=== PATIENT | female | born 1940 | race Caucasian/White ===

== ENCOUNTER 2016-10-06 14:26 | Inpatient (IN) | payer MEDICARE, MEDICAID ==
[~2016-10-06] VITALS: Ht 182.9 cm; Wt 87.1 kg
[2016-10-06] VITALS (18 sets, daily range): BP systolic 97–134; BP diastolic 55–79; PULSE 68–89; RESP 16–20; TEMP 97.8–99; O2SAT 94–100
[~2016-10-06 14:26] MED LIST: AMLO10; FAMO1TAB36; HYDR-2768; HYDR-3133; PROZ20CA11; VASO10TA8
[2016-10-06] MEDS: NITROGLYCERIN 0.4 MG SL 25 TABS/BTL SL SCH ×2 (14:44→15:06)
[2016-10-06] MEDS: SODIUM CHLORIDE 0.9% FLUSH 10 ML FLUSH IVF PRN ×2 (14:44→17:07)
[2016-10-06] MEDS ORDERED: LOSA100T PO (14:49)
[2016-10-06] MEDS ORDERED: OXYB5TAB10 PO (14:49)
[2016-10-06] MEDS ORDERED: [UNRECOGNIZED DRUG - CODE] PO (14:49)
[2016-10-06] MEDS ORDERED: HYDR25TA5 PO (14:49)
[2016-10-06] MEDS ORDERED: ZOCO40TA PO (14:49)
[2016-10-06] MEDS ORDERED: NIFE90TA2 PO (14:49)
--- NOTE | 2016-10-06 15:06 | PD ---
HPI Chief Complaint: Chest Pain Time Seen by Provider: 14:35 Travel History International Travel<30 days: No Contact w/Intl Traveler<30days: No Traveled to known affect area: No History of Present Illness HPI Patient is a 76-year-old female with history of hypertension, hyperlipidemia, COPD, valve disease who was brought to emergency room by EMS as a cardiac alert. As per patient, she was walking outside when all of a sudden she began to develop chest pain. She reports that chest pain is substernal in nature, reports it radiates to her back and up her bilateral shoulders. Reports "it feels like someone is sitting on my chest." Reports that she felt diaphoretic and sob with her symptoms. Patient reports history of cardiac disease - reports that she thinks that she has valve disease with hypertension and hyperlipidemia, reports that she sees Dr. Meng in the office. She was given a full dose of aspirin and well as 1 SL nitroglycerin by EMS - EMS reports that patient's blood pressure dropped to the 90's after the first SL nitro ordered. Patient reports that she continues to have chest pain though it has improved from when it first started. PFSH Past Medical History Hx Anticoagulant Therapy: Yes Arthritis: Yes Blood Disorders: No Anxiety: Yes (onprozac) Depression: Yes Cancer: No Cardiovascular Problems: Yes Endocrine: No GERD: Yes Genitourinary: No Hypertension: Yes Immune Disorder: No Musculoskeletal: Yes Neurologic: No Psychiatric: Yes Reproductive: No Respiratory: Yes ?: Not Menopausal: Yes Past Surgical History Abdominal Surgery: Yes (hysterectomy) Social History Alcohol Use: No Tobacco Use: No (quit 10 yrs ago) Substance Use: No Allergies-Medications (Allergen,Severity, Reaction): Coded Allergies: penicillin G (Unverified Allergy, Severe, RASH, 10/06/16) Reported Meds & Prescriptions Reported Meds & Active Scripts Active Reported Hydrochlorothiazide 25 Mg Tab 25 Mg PO DAILY Losartan (Losartan Potassium) 100 Mg Tab 100 Mg PO DAILY Nifedipine ER (Nifedipine) 90 Mg Tab 90 Mg PO DAILY Zocor (Simvastatin) 40 Mg Tab 40 Mg PO DAILY Paroxetine (Paroxetine HCl) 40 Mg Tab 40 Mg PO DAILY Ditropan (Oxybutynin Chloride) 5 Mg Tab 5 Mg PO Q12HR Review of Systems General / Constitutional: No: Fever Eyes: No: Visual changes HENT: No: Headaches Cardiovascular: Positive: Chest Pain or Discomfort, Diaphoresis Respiratory: Positive: Shortness of Breath Gastrointestinal: No: Abdominal Pain Genitourinary: No: Dysuria Musculoskeletal: No: Pain Skin: No Rash Neurologic: No: Weakness Psychiatric: No: Depression Endocrine: No: Polydipsia Hematologic/Lymphatic: No: Easy Bruising Physical Exam Narrative GENERAL: mild distress SKIN: Focused skin assessment warm/dry. HEAD: Atraumatic. Normocephalic. EYES: Pupils equal and round. No scleral icterus. No injection or drainage. ENT: No nasal bleeding or discharge. Mucous membranes pink and moist. NECK: Trachea midline. No JVD. CARDIOVASCULAR: Regular rate and rhythm. No murmur appreciated. RESPIRATORY: No accessory muscle use. Clear to auscultation. Breath sounds equal bilaterally. GASTROINTESTINAL: Abdomen soft, non-tender, nondistended. Hepatic and splenic margins not palpable. MUSCULOSKELETAL: No obvious deformities. No clubbing. No cyanosis. No edema. NEUROLOGICAL: Awake and alert. No obvious cranial nerve deficits. Motor grossly within normal limits. Normal speech. PSYCHIATRIC: Appropriate mood and affect; insight and judgment normal. Data Data Last Documented VS Vital Signs Date Time Temp Pulse Resp B/P Pulse Ox O2 Delivery O2 Flow Rate FiO2 10/06/16 16:19 97.8 81 18 125/71 100 Nasal Cannula 3 Orders B-Type Natriuretic Peptide (10/06/16 14:36) Ckmb (Isoenzyme) Profile (10/06/16 14:36) Complete Blood Count With Diff (10/06/16 14:36) Comprehensive Metabolic Panel (10/06/16 14:36) Magnesium (Mg) (10/06/16 14:36) Prothrombin Time / Inr (Pt) (10/06/16 14:36) Act Partial Throm Time (Ptt) (10/06/16 14:36) Troponin I (10/06/16 14:36) Lipase (10/06/16 14:36) Chest, Single Ap (10/06/16 14:36) Ecg Monitoring (10/06/16 14:36) Iv Access Insert/Monitor (10/06/16 14:36) Oximetry (10/06/16 14:36) Sodium Chloride 0.9% Flush (Ns Flush) (10/06/16 14:45) Nitroglycerin Sl (Nitrostat Sl) (10/06/16 14:45) Cta Thor Abd Aorta W Iv C W3d (10/06/16 ) CKMB (10/06/16 14:46) CKMB% (10/06/16 14:46) Potassium Chloride (Kcl) (10/06/16 15:45) Iohexol 350 Inj (Omnipaque 350 Inj) (10/06/16 15:53) Morphine Inj (Morphine Inj) (10/06/16 17:00) Admit Order (Ed Use Only) (10/06/16 16:49) Labs Laboratory Tests Test 10/06/16 14:46 White Blood Count 6.1 TH/MM3 Red Blood Count 4.20 MIL/MM3 Hemoglobin 12.8 GM/DL Hematocrit 36.9 % Mean Corpuscular Volume 88.0 FL Mean Corpuscular Hemoglobin 30.5 PG Mean Corpuscular Hemoglobin 34.6 % Concent Red Cell Distribution Width 13.6 % Platelet Count 191 TH/MM3 Mean Platelet Volume 8.7 FL Neutrophils (%) (Auto) 55.1 % Lymphocytes (%) (Auto) 26.2 % Monocytes (%) (Auto) 8.3 % Eosinophils (%) (Auto) 9.6 % Basophils (%) (Auto) 0.8 % Neutrophils # (Auto) 3.4 TH/MM3 Lymphocytes # (Auto) 1.6 TH/MM3 Monocytes # (Auto) 0.5 TH/MM3 Eosinophils # (Auto) 0.6 TH/MM3 Basophils # (Auto) 0.1 TH/MM3 CBC Comment DIFF FINAL Differential Comment Prothrombin Time 10.9 SEC Prothromb Time International 1.0 RATIO Ratio Activated Partial 25.9 SEC Thromboplast Time Sodium Level 138 MEQ/L Potassium Level 3.1 MEQ/L Chloride Level 100 MEQ/L Carbon Dioxide Level 29.4 MEQ/L Anion Gap 9 MEQ/L Blood Urea Nitrogen 27 MG/DL Creatinine 1.24 MG/DL Estimat Glomerular Filtration 42 ML/MIN Rate Random Glucose 87 MG/DL Calcium Level 9.0 MG/DL Magnesium Level 2.3 MG/DL Total Bilirubin 0.6 MG/DL Aspartate Amino Transf 31 U/L (AST/SGOT) Alanine Aminotransferase 31 U/L (ALT/SGPT) Alkaline Phosphatase 64 U/L Total Creatine Kinase 131 U/L Creatine Kinase MB 2.3 NG/ML Troponin I LESS THAN 0.02 NG/ML B-Type Natriuretic Peptide 47 PG/ML Total Protein 6.9 GM/DL Albumin 3.4 GM/DL Lipase 132 U/L MDM Medical Decision Making Medical Screen Exam Complete: Yes Emergency Medical Condition: Yes Interpretation(s) EKG at 1431: NSR at 92bpm, qt/qtc: 386/436, no acute st or t wave changes Vital Signs Date Time Temp Pulse Resp B/P Pulse Ox O2 Delivery O2 Flow Rate FiO2 10/06/16 14:31 97.8 84 18 117/78 94 Vital Signs Date Time Temp Pulse Resp B/P Pulse Ox O2 Delivery O2 Flow Rate FiO2 10/06/16 14:31 97.8 84 18 117/78 94 Differential Diagnosis Differential includes ACS, arrhythmia, aortic dissection, PE, electrolyte abnormality, pneumothorax Narrative Course Patient is a 76-year-old female who presents to emergency room with complaints of chest pain. She began to have substernal chest pain while walking today, reports that it felt as if someone was "sitting on my chest." patient reported mild improvement of symptoms with 3 SL nitro - pain went from an 8/10 to a 6/ 10. EKG with no acute changes patient was placed on a ekg monitor tech. will administer sl nitro. labs including ce ordered. will monitor patient Laboratory Tests Test 10/06/16 14:46 White Blood Count 6.1 TH/MM3 (4.0-11.0) Red Blood Count 4.20 MIL/MM3 (4.00-5.30) Hemoglobin 12.8 GM/DL (11.6-15.3) Hematocrit 36.9 % (35.0-46.0) Mean Corpuscular Volume 88.0 FL (80.0-100.0) Mean Corpuscular Hemoglobin 30.5 PG (27.0-34.0) Mean Corpuscular Hemoglobin 34.6 % Concent (32.0-36.0) Red Cell Distribution Width 13.6 % (11.6-17.2) Platelet Count 191 TH/MM3 (150-450) Mean Platelet Volume 8.7 FL (7.0-11.0) Neutrophils (%) (Auto) 55.1 % (16.0-70.0) Lymphocytes (%) (Auto) 26.2 % (9.0-44.0) Monocytes (%) (Auto) 8.3 % (0.0-8.0) Eosinophils (%) (Auto) 9.6 % (0.0-4.0) Basophils (%) (Auto) 0.8 % (0.0-2.0) Neutrophils # (Auto) 3.4 TH/MM3 (1.8-7.7) Lymphocytes # (Auto) 1.6 TH/MM3 (1.0-4.8) Monocytes # (Auto) 0.5 TH/MM3 (0-0.9) Eosinophils # (Auto) 0.6 TH/MM3 (0-0.4) Basophils # (Auto) 0.1 TH/MM3 (0-0.2) CBC Comment DIFF FINAL Differential Comment Prothrombin Time 10.9 SEC (9.8-11.6) Prothromb Time International 1.0 RATIO Ratio Activated Partial 25.9 SEC Thromboplast Time (24.3-30.1) Sodium Level 138 MEQ/L (136-145) Potassium Level 3.1 MEQ/L (3.5-5.1) Chloride Level 100 MEQ/L (98-107) Carbon Dioxide Level 29.4 MEQ/L (21.0-32.0) Anion Gap 9 MEQ/L (5-15) Blood Urea Nitrogen 27 MG/DL (7-18) Creatinine 1.24 MG/DL (0.50-1.00) Estimat Glomerular Filtration 42 ML/MIN (>89) Rate Random Glucose 87 MG/DL (74-106) Calcium Level 9.0 MG/DL (8.5-10.1) Magnesium Level 2.3 MG/DL (1.5-2.5) Total Bilirubin 0.6 MG/DL (0.2-1.0) Aspartate Amino Transf 31 U/L (15-37) (AST/SGOT) Alanine Aminotransferase 31 U/L (10-53) (ALT/SGPT) Alkaline Phosphatase 64 U/L (45-117) Total Creatine Kinase 131 U/L (26-192) Creatine Kinase MB 2.3 NG/ML (0.5-3.6) Troponin I LESS THAN 0.02 NG/ML (0.02-0.05) B-Type Natriuretic Peptide 47 PG/ML (0-100) Total Protein 6.9 GM/DL (6.4-8.2) Albumin 3.4 GM/DL (3.4-5.0) Lipase 132 U/L (73-393) Last Impressions Chest X-Ray 10/06/16 1436 Signed Impressions: Service Date/Time: September 15:19 - CONCLUSION: 1. Chronic interstitial changes. No acute abnormality. Michael Vieyra MD Aorta CTA 10/06/16 0000 Signed Impressions: Service Date/Time: September 15:51 - CONCLUSION: 1. 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 There is no evidence of rupture or dissection. 2. The pulmonary vasculature is well visualized centrally. No PE is seen. 3. Atherosclerotic plaquing the coronary arteries. 4. 2.4 x 1.3 cm groundglass nodule in the right upper lobe followup exam in 6 months to document stability is warranted. 5. Large hiatal hernia. 6. Multiple calcified gallstones in the gallbladder. 7. Multiple simple cysts within the kidneys. Michael Vieyra MD patient reports that she does have some relief of pain after sl nitro - she continues to have chest pain. I reviewed all labs and studies with patient in detail including all incidental findings. Patient is aware of her lung nodule. She does have atheroscleotic plaquing in the coronary arteries, concern for unstable angina. plan to start heparin gtt as well as nitro gtt. will admit to [facility] Critical Care Narrative Critical Care Narrative Aggregate critical care time was 30 minutes. Time to perform other separately billable procedures was not included in the critical care time. My time did not include minutes spent treating any other patients simultaneously or on activities that did not directly contribute to the patient's treatment. The services I provided to this patient were to treat and/or prevent clinically significant deterioration that could result in: , decompensation, deterioration I provided critical care services requiring my management, as noted below: Chart data review, documentation time, medication orders and management, vital sign assessments/reviewing monitor data, ordering and reviewing lab tests, ordering and interpreting/reviewing x-rays and diagnostic studies, care of the patient and discussion of the patient with the admitting physicians. Diagnosis Primary Impression: Unstable angina Admitting Information Admitting Physician Requests: Admit Yeimi Vigil DO Oct 06, 2016 15:06
[2016-10-06 15:07] LABS: AUTOMATED NEUTROPHIL # 3.4 TH/MM3 (1.8-7.7); BASOPHIL # 0.1 TH/MM3 (0-0.2); BASOPHIL % 0.8 % (0.0-2.0); EOSINOPHIL # 0.6 TH/MM3 (0-0.4); EOSINOPHIL % 9.6 % (0.0-4.0); HEMATOCRIT 36.9 % (35.0-46.0); HEMO FLAGS DIFF FINAL; LYMPH % 26.2 % (9.0-44.0); LYMPHOCYTE # 1.6 TH/MM3 (1.0-4.8); MEAN CORPUSCULAR HEMOGLOBIN 30.5 PG (27.0-34.0); MEAN CORPUSCULAR HGB CONC 34.6 % (32.0-36.0); MONO % 8.3 % (0.0-8.0); NEUT % 55.1 % (16.0-70.0); PLATELET COUNT 191 TH/MM3 (150-450); RED CELL DISTRIBUTION WIDTH 13.6 % (11.6-17.2); WHITE BLOOD COUNT 6.1 TH/MM3 (4.0-11.0)
[2016-10-06 15:34] LABS: ALT (GPT) 31 U/L (10-53); ANION GAP 9 MEQ/L (5-15); AST (GOT) 31 U/L (15-37); BICARBONATE 29.4 MEQ/L (21.0-32.0); BLOOD UREA NITROGEN 27 MG/DL (7-18); CHLORIDE 100 MEQ/L (98-107); GLOMERULAR FILTRATION RATE 42 ML/MIN (>89); MAGNESIUM 2.3 MG/DL (1.5-2.5); POTASSIUM 3.1 MEQ/L (3.5-5.1); SODIUM (NA) 138 MEQ/L (136-145)
[2016-10-06 15:38] LABS: ALKALINE PHOSPHATASE 64 U/L (45-117); CREATINE KINASE 131 U/L (26-192); TOTAL BILIRUBIN ADULT 0.6 MG/DL (0.2-1.0)
[2016-10-06 15:45] LABS: APTT (PATIENT) 25.9 SEC (24.3-30.1); PROTHROMBIN TIME - PATIENT 10.9 SEC (9.8-11.6)
[2016-10-06] MEDS ORDERED: POTASSIUM CHLORIDE 10 MEQ CONTROLLED RELEASE TAB PO ONE (15:45)
[2016-10-06 15:50] LABS: CKMB 2.3 NG/ML (0.5-3.6)
[2016-10-06] MEDS ORDERED: IOHEXOL 350 MG/ML 10 ML VIAL (for RAD DIAG) IV ONE (15:53)
--- NOTE | 2016-10-06 15:55 | RADRPT ---
EXAM DATE/TIME: 10/06/2016 15:19 [facility] COMPARISON: No previous studies available for comparison. INDICATIONS : Coughing, chest pain, shortness of breath for 2 days. MEDICAL HISTORY : Chronic obstructive pulmonary disease. SURGICAL HISTORY : None. ENCOUNTER: Initial ACUITY: 2 days PAIN SCORE: 5/10 LOCATION: Left lower chest FINDINGS: The heart is mildly enlarged. There are chronic interstitial changes. The lungs are otherwise clear. The osseous structures demonstrate degenerative changes but are otherwise intact. CONCLUSION: 1. Chronic interstitial changes. No acute abnormality. Michael Vieyra MD on October 06, 2016 at 15:52 Board Certified Radiologist. This report was verified electronically.
[2016-10-06] MEDS ORDERED: MORPHINE SULFATE 4 MG/ML INJ IV PUSH ONE (17:00)
--- NOTE | 2016-10-06 17:15 | RADRPT ---
EXAM DATE/TIME: 10/06/2016 15:51 [facility] COMPARISON: No previous studies available for comparison. INDICATIONS : Chest pain. IV CONTRAST: 90 cc Omnipaque 350 (iohexol) IV RADIATION DOSE: 17.00 CTDIvol (mGy) MEDICAL HISTORY : Cardiovascular disease. SURGICAL HISTORY : Hysterectomy. ENCOUNTER: Initial ACUITY: 1 day PAIN SCALE: 5/10 LOCATION: chest TECHNIQUE: Volumetric scanning was performed using a multi-row detector CT scanner. The data was post processed with a variety of visualization algorithms including full volume maximum intensity projection, multi -planar sliding thin slab reformation, curved planar reformation, and surface rendering techniques. Using automated exposure control and adjustment of the mA and/or kV according to patient size, radiat ion dose was kept as low as reasonably achievable to obtain optimal diagnostic quality images. DICOM format image data is available electronically for review and comparison. FINDINGS: Thoracic aorta: The aortic root is mildly dilated. Maximum dimension is approximately 3.4 cm. The tubular portion of the ascending aorta measures 3.9 cm. There is mild aneurysmal dilation of the proximal arch with a ma ximum dimension of 3.6 cm. The arch returns to normal caliber in its mid segment. There is normal bra nching of the great vessels from the arch. The descending thoracic aorta is normal in caliber through out its course. There is no evidence of dissection. Abdominal aorta: The celiac and SMA origins are widely patent. The renal arteries are widely patent. The abdominal aor ta is normal in caliber throughout its course. There is mild atherosclerotic plaquing. Pelvic vasculature: The common iliac, internal iliac and external iliac circulation demonstrates mild atherosclerotic raimundo quing but is widely patent throughout its course. CT source data: The examination demonstrates an ill-defined area of groundglass infiltrate in the posterior right upp er lobe measuring 2.4 x 1.[address] examination in 6 months to document stability is warrante d. There are COPD changes. There is a large hiatal hernia. The solid organs of the abdomen demonstrat e multiple simple cysts within the kidneys. There are numerous calcified gallstones in the gallbladde r. There is no retroperitoneal adenopathy. No free air or free fluid is seen. There is no free fluid within the pelvis. No iliac or inguinal adenopathy is present. There are degenerative changes through out the spine. CONCLUSION: 1. 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 There is no eviden ce of rupture or dissection. 2. The pulmonary vasculature is well visualized centrally. No PE is seen. 3. Atherosclerotic plaquing the coronary arteries. 4. 2.4 x 1.3 cm groundglass nodule in the right upper lobe followup exam in 6 months to document stab ility is warranted. 5. Large hiatal hernia. 6. Multiple calcified gallstones in the gallbladder. 7. Multiple simple cysts within the kidneys. Michael Vieyra MD on October 06, 2016 at 17:09 Board Certified Radiologist. This report was verified electronically.
[2016-10-06] MEDS ORDERED: NITROGLYCERIN-D5W 50 MG/250 ML 250 ML IV SCH (17:30)
[2016-10-06] MEDS ORDERED: HEPARIN-D5W 25,000 U/250 ML 250 ML IV SCH (17:30)
[2016-10-06] MEDS ORDERED: SODIUM CHLOR 0.45% 1000 ML INJ 1,000 ML IV SCH (17:39)
[2016-10-06] MEDS: SODIUM CHLOR 0.9% 1000 ML INJ 1,000 ML IV SCH (19:10)
--- NOTE | 2016-10-06 19:13 | HHI.HP ---
[facility] Regan Garsia DO Admission Diagnosis Chest pain Diagnoses: (1) Chest pain Diagnosis: Principal (2) Unstable angina Diagnosis: Principal (3) Renal insufficiency Diagnosis: Principal (4) Hypokalemia Diagnosis: Principal (5) COPD (chronic obstructive pulmonary disease) Diagnosis: Principal (6) Lung nodule Diagnosis: Principal Travel History International Travel<30 Days: No Contact w/Intl Traveler <30 Da: No Traveled to Known Affected Are: No History of Present Illness This is a 76-year-old female with a PMH of HTN, Hyperlipidemia, Anxiety, Depression, CAD and COPD was brought to the ER by EMS as a Cardiac Alert secondary to complaints of chest pain. Per patient, she had acute onset of substernal chest pain which started while walking. Reports pressure-like sensation with radiation to back and shoulders denies history of similar symptoms in the past. No fever, cough or SOB reported. S/p NTG by EMS w/ some improvement. Follows with Dr. Meng as outpatient. On arrival, BP 117/78 , HR 84, O2 sat 94% on 3L NC, Temp 99.0. CBC unremarkable. K+ 3.1. Creatinine 1.24, previously 0.93 on 12/05/06. Troponin negative. BNP normal. INR 1.0. CXR with chronic interstitial changes. CTA with mild aneurysmal dilatation of aortic root, ascending aorta and proximal arch no rupture or dissection, no PE, lung nodule RUL with recommendation for follow-up in 6 months. Cardiology consulted by ER physician, recommended admission w/ Heparin gtt and likely cath in am. Review of Systems Except as stated in HPI: all other systems reviewed are Neg ROS: 14 point review of systems otherwise negative. Past Family Social History Past Medical History PMH: HTN, Hyperlipidemia, Anxiety, Depression, CAD and COPD Past Surgical History PAST SURGICAL HISTORY: Hysterectomy Allergies: Coded Allergies: penicillin G (Unverified Allergy, Severe, RASH, 10/06/16) Family History PAST FAMILY HISTORY: Reviewed. No h/o DM or CAD Social History PAST SOCIAL HISTORY: Negative for alcohol, tobacco or drugs. Physical Exam Vital Signs Vital Signs Date Time Temp Pulse Resp B/P Pulse Ox O2 Delivery O2 Flow Rate FiO2 10/06/16 18:15 79 18 102/65 99 Nasal Cannula 3 10/06/16 18:11 97.8 76 18 134/79 99 Nasal Cannula 3 10/06/16 18:10 98.0 89 18 100/64 99 Nasal Cannula 3 10/06/16 18:05 97.8 74 18 119/67 99 Room Air 10/06/16 17:56 81 18 113/76 100 Nasal Cannula 3 10/06/16 17:50 18 10/06/16 17:40 98.1 78 18 115/74 99 Nasal Cannula 3 10/06/16 17:12 18 10/06/16 17:07 98.2 82 18 125/71 100 Nasal Cannula 3 10/06/16 16:19 97.8 81 18 125/71 100 Nasal Cannula 3 10/06/16 15:11 16 10/06/16 15:06 89 20 129/65 98 Nasal Cannula 3 10/06/16 14:35 18 99 Nasal Cannula 3 10/06/16 14:31 99.0 84 20 117/78 94 10/06/16 14:31 86 20 98 Nasal Cannula 3 Physical Exam PE: GENERAL: Elderly white female in no acute distress. HEENT: PERRLA, EOMI. No scleral icterus or conjunctival pallor. No lid lag or facial droop. CARDIOVASCULAR: Regular rate and rhythm. No obvious murmurs to auscultation. No chest tenderness to palpation. RESPIRATORY: No obvious rhonchi or wheezing. Clear to auscultation. Breath sounds equal bilaterally. GASTROINTESTINAL: Abdomen soft, non-tender, nondistended. BS normal. MUSCULOSKELETAL: Extremities without clubbing, cyanosis, or edema. No obvious deformities. NEUROLOGICAL: Awake, alert and oriented x4. No focal neurologic deficits. Moving both upper and lower extremities spontaneously. Laboratory Laboratory Tests Test 10/06/16 14:46 White Blood Count 6.1 Red Blood Count 4.20 Hemoglobin 12.8 Hematocrit 36.9 Mean Corpuscular Volume 88.0 Mean Corpuscular Hemoglobin 30.5 Mean Corpuscular Hemoglobin 34.6 Concent Red Cell Distribution Width 13.6 Platelet Count 191 Mean Platelet Volume 8.7 Neutrophils (%) (Auto) 55.1 Lymphocytes (%) (Auto) 26.2 Monocytes (%) (Auto) 8.3 Eosinophils (%) (Auto) 9.6 Basophils (%) (Auto) 0.8 Neutrophils # (Auto) 3.4 Lymphocytes # (Auto) 1.6 Monocytes # (Auto) 0.5 Eosinophils # (Auto) 0.6 Basophils # (Auto) 0.1 CBC Comment DIFF FINAL Differential Comment Prothrombin Time 10.9 Prothromb Time International 1.0 Ratio Activated Partial 25.9 Thromboplast Time Sodium Level 138 Potassium Level 3.1 Chloride Level 100 Carbon Dioxide Level 29.4 Anion Gap 9 Blood Urea Nitrogen 27 Creatinine 1.24 Estimat Glomerular Filtration 42 Rate Random Glucose 87 Calcium Level 9.0 Magnesium Level 2.3 Total Bilirubin 0.6 Aspartate Amino Transf 31 (AST/SGOT) Alanine Aminotransferase 31 (ALT/SGPT) Alkaline Phosphatase 64 Total Creatine Kinase 131 Creatine Kinase MB 2.3 Troponin I LESS THAN 0.02 B-Type Natriuretic Peptide 47 Total Protein 6.9 Albumin 3.4 Lipase 132 Result Diagram: 10/06/16 1446 10/06/16 1446 Assessment and Plan Problem List: (1) Chest pain ICD Code: R07.9 Status: Acute (2) Unstable angina ICD Code: I20.0 Status: Acute (3) Hypokalemia ICD Code: E87.6 Status: Acute (4) Renal insufficiency ICD Code: N28.9 Status: Acute (5) COPD (chronic obstructive pulmonary disease) ICD Code: J44.9 Status: Acute (6) Lung nodule ICD Code: R91.1 Status: Acute Assessment and Plan A/P: 1. Chest Pain: acute onset of substernal chest pain, pressure-like w/ radiation to shoulders. Initial trop negative, EKG w/ no acute ischemia. Check serial cardiac enzymes, lipid profile, Hgb A1c. Currently chest pain improved. CXR w/ chronic interstitial changes. CTA no PE, mild aneurysmal dilatation of aortic root, ascending aorta and proximal arch, no rupture or dissection, images reviewed by me. 2. Unstable Angina: follows w/ Dr. Meng as outpatient, Cardiology consulted by ER physician, recommended Heparin/Nitro gtt and likely cath in am. NPO, IVF, continue Heparin/Nitro, check cardiac enzymes as above. 3. Hypokalemia: K+ 3.1, s/p replacement in ER, will recheck and replace as needed. 4. IMELDA: Creatinine 1.24, previously 0.93 on 12/05/06, IVF for hydration, repeat labs in am. 5. COPD: Chronic Respiratory Failure. Stable. DuoNeb prn as needed. 6. Lung Nodule: CTA w/ RUL groundglass nodule 2.4 x 1.3cm, recommendation for repeat CT in 6mo, pt aware of lung nodule in the past. 7. DVT Prophylaxis: On Heparin gtt 8. Social work for d/c planning as needed. 9. Case discussed w/ ER physician at length. Physician Certification 2 Midnight Certification Type: Admission for Inpatient Services Order for Inpatient Services The services are ordered in accordance with Medicare regulations or non- Medicare payer requirements, as applicable. In the case of services not specified as inpatient-only, they are appropriately provided as inpatient services in accordance with the 2-midnight benchmark. Estimated LOS (days): 2 days is the estimated time the patient will need to remain in the hospital, assuming treatment plan goals are met and no additional complications. Post-Hospital Plan: Not yet determined Problem Qualifiers (1) Chest pain: Qualified Code: R07.9 - Chest pain, unspecified type Hortencia Flores MD Oct 06, 2016 19:13
[2016-10-06] MEDS ORDERED: ONDANSETRON HCL 4 MG/2 ML VIAL IVP PRN (19:15)
[2016-10-06] MEDS ORDERED: SODIUM CHLORIDE 0.9% FLUSH 10 ML FLUSH IV FLUSH PRN (19:15)
[2016-10-06] MEDS ORDERED: ACETAMINOPHEN 325 MG TAB PO PRN (19:15)
[2016-10-06] MEDS ORDERED: LACTULOSE SYRUP 20 GM/30 ML CUP PO PRN (19:15)
[2016-10-06] MEDS ORDERED: BISACODYL 10 MG SUPP RECTAL PRN (19:15)
[2016-10-06] MEDS ORDERED: ACETAMINOPHEN/HYDROcodone 325 MG/5 MG TAB PO PRN (19:15)
[2016-10-06] MEDS ORDERED: SENNOSIDES 8.6 MG TAB PO PRN (19:15)
[2016-10-06] MEDS ORDERED: MAGNESIUM HYDROXIDE SUSP 30 ML CUP PO PRN (19:15)
[2016-10-06] MEDS: OXYBUTYNIN CHLORIDE 5 MG TAB PO SCH (21:00)
[2016-10-06] MEDS: DOCUSATE SODIUM 50 MG/SENNA 8.6 MG TAB PO SCH (21:00)
[2016-10-06] MEDS: SODIUM CHLORIDE 0.9% FLUSH 10 ML FLUSH IV FLUSH SCH (21:00)
[2016-10-07] VITALS (24 sets, daily range): BP systolic 109–144; BP diastolic 62–99; PULSE 62–80; RESP 11–25; TEMP 97.7–98.8; O2SAT 93–100
[2016-10-07 00:27] LABS: PROTHROMBIN TIME - PATIENT 11.6 SEC (9.8-11.6)
[2016-10-07 00:28] LABS: APTT (PATIENT) 104.5 SEC (24.3-30.1)
[2016-10-07] MEDS ORDERED: CHLORHEXIDINE GLUCONATE 2 % 1 PACK (2 CLOTHS)(extra cloths) TOPICAL PRN (03:30)
[2016-10-07] MEDS: CHLORHEXIDINE GLUCONATE 2 % 1 PACK (2 CLOTHS)(taper/protocol) TOPICAL SCH (04:00)
[2016-10-07] MEDS: SODIUM CHLOR 0.9% 1000 ML INJ 1,000 ML IV SCH ×2 (04:40→15:10)
[2016-10-07] MEDS: OXYBUTYNIN CHLORIDE 5 MG TAB PO SCH ×2 (09:00→20:20)
--- NOTE | 2016-10-07 09:22 | EKG ---
Date Performed: 10/06/2016 Time Performed: 14:31:54 PTAGE: 76 years EKG: Sinus rhythm WITH FREQUENT SUPRAVENTRICULAR PREMATURE COMPLEXES ABNORMAL RHYTHM ECG Compared to PREVIOUS TRACING frequent PACs are now noted PREVIOUS TRACIN07/05/06 DOCTOR: Carlos Azevedo Interpretating Date/Time 10/07/2016 09:18:38
--- NOTE | 2016-10-07 09:22 | EKG ---
Date Performed: 10/06/2016 Time Performed: 20:34:18 PTAGE: 76 years EKG: Sinus rhythm WITH OCCASIONAL SUPRAVENTRICULAR PREMATURE COMPLEXES BORDERLINE ECG Compared to prior tracing no sig nificant change PREVIOUS TRACING : 10/06/2016 14.31 DOCTOR: Carlos Azevedo Interpretating Date/Time 10/07/2016 09:17:56
--- NOTE | 2016-10-07 09:44 | MB ---
cc: LOWELL MOLINA DO DATE OF CONSULTATION 10/07/2016 REASON FOR CONSULTATION Chest pain HISTORY OF PRESENT ILLNESS Catie Madera is a pleasant 76-year-old female who sees my partner, Dr. Meng, in the office, who presented to [facility] emergency room on October 06, 2016 due to chest pain. She is a very difficult historian as she has difficulty describing her chest pain. Per the ER, she was out walking and started getting pain on the left side of her chest. She described to them that it was pressure-like in sensation and she had not had that before. She was given nitro and morphine in the emergency room and felt somewhat better and was started on a heparin drip as there was a concern for unstable angina. In seeing her this morning, she is currently on heparin and a nitro drip. She still has some pain which is sharp on the left side of her chest. In discussing with her, this is the pain that she had while walking outside. On palpation of her anterior chest wall, this brings back the pain that brought her into the emergency room. PAST MEDICAL HISTORY 1. Hypertension 2. Hyperlipidemia 3. Anxiety/depression 4. COPD 5. History of coronary artery disease, although it does not appear that she has ever had a cardiac catheterization. 6. 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 PAST SURGICAL HISTORY Hysterectomy ALLERGIES PENICILLIN MEDICATIONS 1. Losartan 100 mg daily 2. Paroxetine 40 mg daily 3. Ditropan 5 mg every 12 hours 4. Nifedipine ER 90 mg daily 5. Zocor 40 mg daily 6. Hydrochlorothiazide 25 mg daily FAMILY HISTORY Denies premature coronary artery disease or sudden cardiac within the family. SOCIAL HISTORY Denies tobacco, alcohol or drug abuse. She previously smoked, but quit a number of years ago. REVIEW OF SYSTEMS 14-systems were reviewed including osteopathic pertinent positives and negatives as above otherwise negative. PHYSICAL EXAMINATION VITAL SIGNS: Temperature 97.8, heart rate 67, blood pressure 132/82, respirations 14, pulse ox 97% on four liters. GENERAL: In general, the patient appears well in no acute distress, alert, awake and oriented x3. HEAD, EYES, EARS, NOSE, AND THROAT: Extraocular muscles intact. Mucous membranes moist. NECK: Supple. No JVD at 45 degrees. No carotid bruits heard bilaterally. Carotid upstroke is brisk in nature. HEART: Regular rate and rhythm. Positive first and second heart sounds with no murmurs, gallops or rubs. LUNGS: Clear to auscultation bilaterally. No wheezes, rales or rhonchi. Palpation of the anterior chest wall over the left side reproduces sharp pain. ABDOMEN: Soft, nontender, nondistended. No organomegaly noted. EXTREMITIES: Show no clubbing, cyanosis or edema. Femoral and distal pulses intact bilaterally. NEUROLOGIC: No focal deficits. SKIN: Warm, dry and intact. OSTEOPATHIC: No kyphoscoliosis, lordosis or paraspinal tender points. LABORATORY FINDINGS Hemoglobin 12.8, hematocrit 36.9, platelets 191. Potassium 3.1, BUN 27, creatinine 1.24, troponin negative x2. BNP 47. Electrocardiogram (sinus rhythm with occasional PAC's, no acute ST-T wave changes) IMPRESSIONS 1. Atypical chest pain more likely musculoskeletal in nature. 2. Acute kidney injury versus chronic kidney disease. 3. COPD 4. Mild dilatation of the proximal aorta and aortic root by echocardiogram as well as CT. 5. Remote history of tobacco. 6. Hypertension 7. Hyperlipidemia 8. COPD 9. Known lung nodules for which the patient is aware. RECOMMENDATIONS 1. Ms. Madera, although a difficult historian, does have chest wall pain with palpation of the anterior wall and this is most likely musculoskeletal in nature. My concern is that she did describe it as pressure to the ER attending. 2. At this time, I would not consider it unstable angina and I do not believe that we should go to the trestle mainternance laborer especially with an increase in her creatinine. 3. I think it is reasonable for her to undergo a pharmacologic nuclear stress test today to rule out ischemia. 4. She recently had an echocardiogram in the office (July 2016) which showed a normal ejection fraction, mild mitral and tricuspid regurgitation, as well as a mildly dilated aortic root. 5. We will plan on stopping her nitroglycerin and giving her pain meds for her pain to see if this helps. 6. Further recommendations after myocardial perfusion imaging. Thank you for allowing me to see Catie Madera. If there are any questions, please do not hesitate to call. Lowell Molina DO VGP/DJL /8:57 AM /9:30 AM
[2016-10-07] MEDS: ASPIRIN EC 81 MG TABEC PO SCH (10:28)
[2016-10-07] MEDS: PARoxetine HCL 20 MG TAB PO SCH (10:28)
[2016-10-07] MEDS: PRAVASTATIN SOD 80 MG TAB PO SCH (10:28)
[2016-10-07] MEDS: SODIUM CHLORIDE 0.9% FLUSH 10 ML FLUSH IV FLUSH SCH ×2 (10:29→20:20)
[2016-10-07] MEDS: DOCUSATE SODIUM 50 MG/SENNA 8.6 MG TAB PO SCH ×2 (10:29→20:20)
[2016-10-07] MEDS: NIFEdipine 90 MG SUSTAINED RELEASE TAB PO SCH (10:30)
[2016-10-07] MEDS: MORPHINE SULFATE 4 MG/ML INJ IV PRN (10:35)
[2016-10-07 11:28] LABS: AUTOMATED NEUTROPHIL # 2.6 TH/MM3 (1.8-7.7); BASOPHIL % 0.8 % (0.0-2.0); EOSINOPHIL # 0.3 TH/MM3 (0-0.4); EOSINOPHIL % 6.6 % (0.0-4.0); HEMATOCRIT 33.6 % (35.0-46.0); HEMO FLAGS DIFF FINAL; LYMPH % 22.9 % (9.0-44.0); MEAN CELL VOLUME 87.7 FL (80.0-100.0); MEAN CORPUSCULAR HEMOGLOBIN 30.2 PG (27.0-34.0); MEAN CORPUSCULAR HGB CONC 34.5 % (32.0-36.0); MONO % 7.6 % (0.0-8.0); NEUT % 62.1 % (16.0-70.0); PLATELET COUNT 134 TH/MM3 (150-450); RED BLOOD COUNT 3.83 MIL/MM3 (4.00-5.30); RED CELL DISTRIBUTION WIDTH 13.3 % (11.6-17.2); WHITE BLOOD COUNT 4.2 TH/MM3 (4.0-11.0)
[2016-10-07 11:36] LABS: APTT (PATIENT) 25.7 SEC (24.3-30.1)
[2016-10-07 11:50] LABS: ANION GAP 8 MEQ/L (5-15); AST (GOT) 31 U/L (15-37); BICARBONATE 30.2 MEQ/L (21.0-32.0); BLOOD UREA NITROGEN 18 MG/DL (7-18); CHLORIDE 105 MEQ/L (98-107); GLOMERULAR FILTRATION RATE 59 ML/MIN (>89); SODIUM (NA) 143 MEQ/L (136-145)
[2016-10-07 11:53] LABS: ALKALINE PHOSPHATASE 66 U/L (45-117); ALT (GPT) 27 U/L (10-53); TOTAL BILIRUBIN ADULT 0.7 MG/DL (0.2-1.0)
[2016-10-07 11:59] LABS: HDL CHOLESTEROL 49.8 MG/DL (40.0-60.0); LDL CHOLESTEROL 65 MG/DL (0-99)
[2016-10-07] MEDS ORDERED: REGADENOSON INJ 0.4 MG/5 ML SYR ONE (12:49)
--- NOTE | 2016-10-07 13:52 | RADRPT ---
EXAM DATE/TIME: 10/07/2016 12:17 [facility] COMPARISON: No previous studies available for comparison. INDICATIONS : Substernal chest pain radiating to back. Angina. Coronary artery disease. DOSE: 25.8 mCi Tc99m Myoview at stress. 8.5 mCi Tc99m Myoview at rest. 0.4 mg Lexiscan STRESS SYMPTOMS: Headache. EJECTION FRACTION: > 70% MEDICAL HISTORY : Hypertension. Chronic obstructive pulmonary disease. SURGICAL HISTORY : Hysterectomy. ENCOUNTER: Initial ACUITY: 2 days PAIN SCALE: 6/10 LOCATION: Substernal chest TECHNIQUE: The patient underwent pharmacologic stress with infusion of prescribed dose. Continuous ECG tracing was monitored during stress. Gated SPECT imaging was performed after stress and conventional SPECT i maging was performed at rest. The examination was performed on a SPECT/CT scanner, both attenuation and non-corrected datasets were reviewed. FINDINGS: DISTRIBUTION: The maximum perfused segment at stress is in the inferior wall. PERFUSION STUDY: The pattern of perfusion at stress is within normal limits. GATED STUDY: There is intact wall motion and thickening without hypokinetic or dyskinetic segments. CONCLUSION: 1. No reversible perfusion defect indicate stress-induced myocardial ischemia identified. RISK CATEGORY: Low (<1% Annual Mortality Rate) Michael Vieyra MD on October 07, 2016 at 13:50 Board Certified Radiologist. This report was verified electronically.
[2016-10-07] MEDS ORDERED: POTASSIUM CHLORIDE 10 MEQ CONTROLLED RELEASE TAB PO ONE (15:30)
[2016-10-07 16:48] LABS: HEMOGLOBIN A1a 1.1 %; HEMOGLOBIN A1b 0.5 %; HEMOGLOBIN Ao 87.3 %; HEMOGLOBIN F 0.9 %; HEMOGLOBIN LA1C 1.8 %; HEMOGLOBIN P3 3.4 %
--- NOTE | 2016-10-07 18:26 | HHI.PR ---
Subjective Remarks Patient denies cp/sob c/o BL lower extremity weakness and fall 1 week ago vital signs are stable Objective Vitals Vital Signs Date Time Temp Pulse Resp B/P Pulse Ox O2 Delivery O2 Flow Rate FiO2 10/07/16 14:04 74 24 132/89 98 10/07/16 14:04 74 10/07/16 11:00 68 10/07/16 11:00 98.0 68 18 126/76 99 10/07/16 10:40 15 10/07/16 10:00 63 10/07/16 10:00 63 11 100 10/07/16 09:00 62 15 121/66 99 10/07/16 09:00 62 10/07/16 08:00 66 22 116/70 99 10/07/16 08:00 66 10/07/16 07:30 62 10/07/16 07:30 62 19 109/62 97 10/07/16 07:27 97 Nasal Cannula 4.00 10/07/16 07:00 65 10/07/16 07:00 65 18 116/62 97 10/07/16 06:00 67 10/07/16 04:30 68 13 133/82 100 10/07/16 04:00 64 10/07/16 04:00 64 11 141/84 99 10/07/16 03:34 98 Nasal Cannula 4.00 10/07/16 03:32 97.7 65 25 138/94 98 10/07/16 02:42 66 20 111/71 98 Nasal Cannula 10/07/16 01:32 71 20 120/77 Nasal Cannula 10/07/16 00:58 66 20 136/76 99 Nasal Cannula 2 10/06/16 23:50 68 20 125/75 99 Nasal Cannula 2 10/06/16 23:09 70 20 106/55 98 Nasal Cannula 2 10/06/16 22:22 70 20 114/63 98 Nasal Cannula 10/06/16 21:37 82 20 98/61 99 Nasal Cannula 10/06/16 20:31 71 16 108/63 97 Nasal Cannula 3 10/06/16 20:10 72 20 97/60 98 Nasal Cannula 10/06/16 19:37 72 20 119/62 100 Nasal Cannula 10/06/16 18:15 79 18 102/65 99 Nasal Cannula 3 10/06/16 18:11 97.8 76 18 134/79 99 Nasal Cannula 3 10/06/16 18:10 98.0 89 18 100/64 99 Nasal Cannula 3 10/06/16 18:05 97.8 74 18 119/67 99 Room Air I/O 10/06/16 10/06/16 10/06/16 10/07/16 10/07/16 10/07/16 06:59 14:59 22:59 06:59 14:59 22:59 Intake Total 1751 ml 822 ml Output Total 1000 ml 2000 ml Balance 751 ml -1178 ml Intake Oral 480 ml 0 ml IV Total 1271 ml 822 ml Output Urine Total 1000 ml 2000 ml # Voids 1 5 # Bowel Movements 0 Result Diagram: 10/07/16 1100 10/07/16 1100 Imaging Last Impressions Myocardial Perfusion Scan Nuc Med 10/07/16 0000 Signed Impressions: Service Date/Time: Friday, October 07, 2016 12:17 - CONCLUSION: 1. No reversible perfusion defect indicate stress-induced myocardial ischemia identified. RISK CATEGORY: Low (<1%% Annual Mortality Rate) Michael Vieyra MD Chest X-Ray 10/06/16 1436 Signed Impressions: Service Date/Time: September 15:19 - CONCLUSION: 1. Chronic interstitial changes. No acute abnormality. Michael Vieyra MD Aorta CTA 10/06/16 0000 Signed Impressions: Service Date/Time: September 15:51 - CONCLUSION: 1. 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 There is no evidence of rupture or dissection. 2. The pulmonary vasculature is well visualized centrally. No PE is seen. 3. Atherosclerotic plaquing the coronary arteries. 4. 2.4 x 1.3 cm groundglass nodule in the right upper lobe followup exam in 6 months to document stability is warranted. 5. Large hiatal hernia. 6. Multiple calcified gallstones in the gallbladder. 7. Multiple simple cysts within the kidneys. Michael Vieyra MD Objective Remarks AAOx3, NAD PERRLA Clear lungs BL S1S2 + RRR badomen soft, NT, ND Muscle strength 4/5 in lower extremities. Medications and IVs Current Medications Medications (Trade) Dose Ordered Sig/Dusty Route Start Time Stop Time Status Last Admin (Nitroglycerin-Dextrose Inj) 250 ml @ 0 mls/hr TITRATE IV 10/06/16 17:30 Hold 10/06/16 17:45 Aspirin 81 mg 81 mg DAILY PO 10/07/16 09:00 10/07/16 10:28 (NS 1000 ml Inj) 1,000 ml @ 100 mls/hr Q10H IV 10/06/16 19:10 10/07/16 04:40 (NS Flush) 2 ml UNSCH PRN IV FLUSH 10/06/16 19:15 (NS Flush) 2 ml BID IV FLUSH 10/06/16 21:00 10/07/16 10:29 (Zofran Inj) 4 mg Q6H PRN IVP 10/06/16 19:15 (Tylenol) 650 mg Q6H PRN PO 10/06/16 19:15 ([place] 5-325 Mg) 1 tab Q4H PRN PO 10/06/16 19:15 (Morphine Inj) 2 mg Q3H PRN IV 10/06/16 19:15 10/07/16 10:35 (Johana-Colace) 1 tab BID PO 10/06/16 21:00 10/07/16 10:29 (Milk Of Magnesia Liq) 30 ml Q12H PRN PO 10/06/16 19:15 (Senokot) 17.2 mg Q12H PRN PO 10/06/16 19:15 (Dulcolax Supp) 10 mg DAILY PRN RECTAL 10/06/16 19:15 (Lactulose Liq) 30 ml DAILY PRN PO 10/06/16 19:15 (Procardia Xl) 90 mg DAILY PO 10/07/16 09:00 10/07/16 10:30 (Ditropan) 5 mg Q12HR PO 10/06/16 21:00 10/07/16 09:00 (Paxil) 40 mg DAILY PO 10/07/16 09:00 10/07/16 10:28 (Pravachol) 80 mg DAILY PO 10/07/16 09:00 10/07/16 10:28 Miscellaneous Information Patient in critical care unit? Ass... Q361D .XX 10/07/16 03:30 (Chlorhexidine 2% Cloth) 3 pack DAILY@04 TOPICAL 10/07/16 04:00 10/11/16 04:01 10/07/16 04:00 (Chlorhexidine 2% Cloth) 3 pack UNSCH PRN TOPICAL 10/07/16 03:30 10/12/16 03:20 A/P Problem List: (1) Chest pain ICD Code: R07.9 Status: Acute (2) Unstable angina ICD Code: I20.0 Status: Acute (3) Hypokalemia ICD Code: E87.6 Status: Acute (4) Renal insufficiency ICD Code: N28.9 Status: Acute (5) COPD (chronic obstructive pulmonary disease) ICD Code: J44.9 Status: Acute (6) Lung nodule ICD Code: R91.1 Status: Acute Assessment and Plan 1. Chest Pain: acute onset of substernal chest pain, pressure-like w/ radiation to shoulders. Initial trop negative, EKG w/ no acute ischemia. Check serial cardiac enzymes, lipid profile, Hgb A1c. Currently chest pain improved. CXR w/ chronic interstitial changes. CTA no PE, mild aneurysmal dilatation of aortic root, ascending aorta and proximal arch, no rupture or dissection, images reviewed by me. 10/07 Patient is chest pain free. seen by Cardiology. Nuclear scan is negative for ischemia. 2. Unstable Angina: follows w/ Dr. Meng as outpatient, Cardiology consulted by ER physician, recommended Heparin/Nitro gtt and likely cath in am. NPO, IVF, continue Heparin/Nitro, check cardiac enzymes as above. 10/07 Likely musculoskeletal chest pain. Seen by cardiology. Heparin gtt and Nitroglycerin discontinued. 3. Hypokalemia: K+ 3.1, s/p replacement in ER, will recheck and replace as needed. 10/07 K 3.0. Replace orally and monitor K. 4. IMELDA: Creatinine 1.24, previously 0.93 on 12/05/06, IVF for hydration, repeat labs in am. 10/07 Creatinine improving. DC fluids IV. Encourage po intake. 5. COPD: Chronic Respiratory Failure. Stable. DuoNeb prn as needed. 6. Lung Nodule: CTA w/ RUL groundglass nodule 2.4 x 1.3cm, recommendation for repeat CT in 6mo, pt aware of lung nodule in the past. 7. DVT Prophylaxis: SCD's. 8. Social work for d/c planning as needed. 9. Lower extremity weakness: Consult PT. Discharge Planning ok to transfer out of the unit. Problem Qualifiers (1) Chest pain: Qualified Code: R07.9 - Chest pain, unspecified type John Saha MD Oct 07, 2016 18:26
[2016-10-08] VITALS (10 sets, daily range): BP systolic 116–142; BP diastolic 65–77; PULSE 40–103; RESP 18–20; TEMP 97.2–98.3; O2SAT 92–95
[2016-10-08] MEDS ORDERED: TEMAZEPAM 7.5 MG CAP PO ONE
[2016-10-08] MEDS: CHLORHEXIDINE GLUCONATE 2 % 1 PACK (2 CLOTHS)(taper/protocol) TOPICAL SCH ×2 (04:00→23:01)
[2016-10-08] MEDS: RESP: ALBUTEROL 2.5 MG/IPRATROPIUM 0.5 MG NEB (PRN) NEB ×2 (05:40→08:43)
[2016-10-08] MEDS: MORPHINE SULFATE 4 MG/ML INJ IV PRN (08:43)
[2016-10-08] MEDS: DOCUSATE SODIUM 50 MG/SENNA 8.6 MG TAB PO SCH ×2 (08:44→20:05)
[2016-10-08] MEDS: PARoxetine HCL 20 MG TAB PO SCH (08:44)
[2016-10-08] MEDS: OXYBUTYNIN CHLORIDE 5 MG TAB PO SCH ×2 (08:44→20:05)
[2016-10-08] MEDS: ASPIRIN EC 81 MG TABEC PO SCH (08:44)
[2016-10-08] MEDS: PRAVASTATIN SOD 80 MG TAB PO SCH (08:44)
[2016-10-08] MEDS: NIFEdipine 90 MG SUSTAINED RELEASE TAB PO SCH (08:45)
[2016-10-08] MEDS: SODIUM CHLORIDE 0.9% FLUSH 10 ML FLUSH IV FLUSH SCH ×2 (08:46→20:05)
[2016-10-08] MEDS ORDERED: ALUMINUM/MAGNESIUM/SIMETH 30 ML CUP PO PRN (10:45)
[2016-10-08] MEDS ORDERED: methylPREDNISolone SOD SUCC 125 MG/2 ML VIAL IV PUSH ONE (10:45)
[2016-10-08] MEDS ORDERED: ALUMINUM/MAGNESIUM/SIMETH 30 ML CUP PO ONE (10:45)
[2016-10-08] MEDS ORDERED: RESP: ALBUTEROL 2.5 MG/IPRATROPIUM 0.5 MG NEB (SCH) NEB ONE (10:45)
[2016-10-08] MEDS ORDERED: ACETAMINOPHEN/HYDROcodone 325 MG/5 MG TAB PO PRN ×2 (10:45)
--- NOTE | 2016-10-08 11:44 | RADRPT ---
EXAM DATE/TIME: 10/08/2016 11:03 [facility] COMPARISON: CHEST SINGLE AP, October 06, 2016, 15:19. INDICATIONS : Cough MEDICAL HISTORY : Chronic obstructive pulmonary disease. SURGICAL HISTORY : None. ENCOUNTER: Subsequent ACUITY: 3 days PAIN SCORE: 0/10 LOCATION: Bilateral chest FINDINGS: A single view of the chest demonstrates the lungs to be symmetrically aerated without evidence of mas s, infiltrate or effusion. Moderate size hiatal hernia. The cardiomediastinal contours are unremarkab le. Osseous structures are intact. CONCLUSION: No acute disease. Jeffery Hong MD on October 08, 2016 at 11:43 Board Certified Radiologist. This report was verified electronically.
[2016-10-08] MEDS: PANTOPRAZOLE SOD 40 MG DELAYED RELEASE TAB PO SCH (11:48)
--- NOTE | 2016-10-08 13:29 | PD.CARD.PN ---
Subjective Subjective Remarks No events overnight No chest pain Objective Medications Current Medications Medications (Trade) Dose Ordered Sig/Dusty Route Start Time Stop Time Status Last Admin (Ecotrin Ec) 81 mg DAILY PO 10/07/16 09:00 10/08/16 08:44 (NS Flush) 2 ml UNSCH PRN IV FLUSH 10/06/16 19:15 (NS Flush) 2 ml BID IV FLUSH 10/06/16 21:00 10/08/16 08:46 (Zofran Inj) 4 mg Q6H PRN IVP 10/06/16 19:15 (Tylenol) 650 mg Q6H PRN PO 10/06/16 19:15 (Johana-Colace) 1 tab BID PO 10/06/16 21:00 10/08/16 08:44 (Milk Of Magnesia Liq) 30 ml Q12H PRN PO 10/06/16 19:15 (Senokot) 17.2 mg Q12H PRN PO 10/06/16 19:15 (Dulcolax Supp) 10 mg DAILY PRN RECTAL 10/06/16 19:15 (Lactulose Liq) 30 ml DAILY PRN PO 10/06/16 19:15 (Procardia Xl) 90 mg DAILY PO 10/07/16 09:00 10/08/16 08:45 (Ditropan) 5 mg Q12HR PO 10/06/16 21:00 10/08/16 08:44 (Paxil) 40 mg DAILY PO 10/07/16 09:00 10/08/16 08:44 (Pravachol) 80 mg DAILY PO 10/07/16 09:00 10/08/16 08:44 Miscellaneous Information Patient in critical care unit? Ass... Q361D .XX 10/07/16 03:30 (Chlorhexidine 2% Cloth) 3 pack DAILY@04 TOPICAL 10/07/16 04:00 10/11/16 04:01 10/07/16 04:00 (Chlorhexidine 2% Cloth) 3 pack UNSCH PRN TOPICAL 10/07/16 03:30 10/12/16 03:20 (Protonix) 40 mg DAILY PO 10/08/16 11:00 10/08/16 11:48 (Mag-Al Plus Susp Liq) 30 ml Q6H PRN PO 10/08/16 10:45 ([place] 5-325 Mg) 1 tab Q4H PRN PO 10/08/16 10:45 ([place] 5-325 Mg) 2 tab Q4H PRN PO 10/08/16 10:45 (SoluMEDROL INJ) 40 mg Q12HR IV PUSH 10/08/16 21:00 Vital Signs / I&O Vital Signs Date Time Temp Pulse Resp B/P Pulse Ox O2 Delivery O2 Flow Rate FiO2 10/08/16 12:00 98.3 76 18 116/65 94 10/08/16 08:44 92 10/08/16 08:20 69 10/08/16 08:20 Room Air 10/08/16 08:00 98.1 40 18 127/75 95 10/08/16 05:34 97.7 74 18 133/77 92 10/08/16 00:15 98.0 76 18 116/69 94 10/07/16 21:00 Room Air 10/07/16 20:35 97.8 71 18 116/75 93 10/07/16 20:09 94 10/07/16 20:00 69 10/07/16 20:00 98.8 69 24 133/80 98 10/07/16 19:00 69 14 130/71 10/07/16 18:00 72 14 128/79 10/07/16 17:00 80 16 134/85 10/07/16 16:00 98.4 70 16 142/99 10/07/16 15:00 69 16 144/75 10/07/16 14:04 74 24 132/89 98 10/07/16 14:04 74 I/O 10/07/16 10/07/16 10/07/16 10/08/16 10/08/16 10/08/16 07:00 15:00 23:00 07:00 15:00 23:00 Intake Total 1751 ml 822 ml 240 ml Output Total 1000 ml 2000 ml 500 ml Balance 751 ml -1178 ml -260 ml Intake Oral 480 ml 0 ml 240 ml IV Total 1271 ml 822 ml Output Urine Total 1000 ml 2000 ml 500 ml # Voids 1 5 # Bowel Movements 0 0 Physical Exam GENERAL: NAD, AAOx3 SKIN: Warm and dry. HEAD: Atraumatic. Normocephalic. EYES: Pupils equal and round. No scleral icterus. No injection or drainage. ENT: No nasal bleeding or discharge. Mucous membranes pink and moist. NECK: Trachea midline. No JVD. CARDIOVASCULAR: Regular rate and rhythm. RESPIRATORY: No accessory muscle use. Decreased breath sounds bilaterally GASTROINTESTINAL: Abdomen soft, non-tender, nondistended. Hepatic and splenic margins not palpable. MUSCULOSKELETAL: Extremities without clubbing, cyanosis, or edema. No obvious deformities. NEUROLOGICAL: Awake and alert. No obvious cranial nerve deficits. Motor grossly within normal limits. Five out of 5 muscle strength in the arms and legs. Normal speech. PSYCHIATRIC: Appropriate mood and affect; insight and judgment normal. Assessment and Plan Problem List: (1) Chest pain (2) COPD (chronic obstructive pulmonary disease) (3) Lung nodule Assessment and Plan 1) Non-coronary chest pain Most likely musculoskeletal Stress test showing no ischemia Echo in the office showing normal EF, mild MR/TR, mild dilatation of the aortic root 2) Lower extremity weakness Agree with PT eval 3) No further cardiovascular issues, cardiovascularly stable for discharge by primary when able Problem Qualifiers (1) Chest pain: Qualified Code: R07.9 - Chest pain, unspecified type Geovany Morrissey DO Oct 08, 2016 13:29
[2016-10-08] MEDS: RESP: ALBUTEROL 2.5 MG/IPRATROPIUM 0.5 MG NEB (SCH) NEB ×2 (15:18→20:10)
[2016-10-08 18:39] LABS: BICARBONATE 28.6 MEQ/L (21.0-32.0)
[2016-10-08 18:41] LABS: POTASSIUM 2.9 MEQ/L (3.5-5.1)
[2016-10-08] MEDS ORDERED: POTASSIUM CHLORIDE 20 MEQ CONTROLLED RELEASE TAB PO ONE (19:15)
[2016-10-08] MEDS: POTASSIUM CHLOR 20 MEQ PREMIX 100 ML IV SCH ×2 (20:04→22:11)
[2016-10-08] MEDS: methylPREDNISolone SOD SUCC 40 MG/1 ML VIAL IV PUSH SCH (20:05)
[2016-10-09] VITALS (8 sets, daily range): BP systolic 120–176; BP diastolic 63–94; PULSE 84–133; RESP 16–22; TEMP 97.5–98.1; O2SAT 92–96
[2016-10-09] MEDS: TEMAZEPAM 7.5 MG CAP PO PRN (00:26)
--- NOTE | 2016-10-09 01:20 | HHI.PR ---
Subjective Remarks Deferred entry - patient seen earlier on 10/08/2016 10:50 am patint c/o cough and sob states had chest pain which is reproducible Objective Vitals Vital Signs Date Time Temp Pulse Resp B/P Pulse Ox O2 Delivery O2 Flow Rate FiO2 10/08/16 20:12 93 10/08/16 20:00 84 10/08/16 20:00 Room Air 10/08/16 20:00 97.2 87 18 118/65 93 10/08/16 16:00 97.7 84 20 142/68 95 10/08/16 12:00 98.3 76 18 116/65 94 10/08/16 08:44 92 10/08/16 08:20 69 10/08/16 08:20 Room Air 10/08/16 08:00 98.1 40 18 127/75 95 10/08/16 05:34 97.7 74 18 133/77 92 I/O 10/08/16 10/08/16 10/08/16 10/09/16 10/09/16 10/09/16 07:00 15:00 23:00 07:00 15:00 23:00 Intake Total 240 ml 480 ml 600 ml Output Total 500 ml 800 ml 400 ml Balance -260 ml -320 ml 200 ml Intake Oral 240 ml 480 ml 600 ml IV Total 0 ml Output Urine Total 500 ml 800 ml 400 ml # Bowel Movements 0 1 0 Result Diagram: 10/07/16 1100 10/08/16 1722 Imaging Last Impressions Chest X-Ray 10/08/16 0000 Signed Impressions: Service Date/Time: Saturday, October 08, 2016 11:03 - CONCLUSION: No acute disease. Jeffery Hong MD Myocardial Perfusion Scan Nuc Med 10/07/16 0000 Signed Impressions: Service Date/Time: Friday, October 07, 2016 12:17 - CONCLUSION: 1. No reversible perfusion defect indicate stress-induced myocardial ischemia identified. RISK CATEGORY: Low (<1%% Annual Mortality Rate) Michael Vieyra MD Aorta CTA 10/06/16 0000 Signed Impressions: Service Date/Time: September 15:51 - CONCLUSION: 1. 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 There is no evidence of rupture or dissection. 2. The pulmonary vasculature is well visualized centrally. No PE is seen. 3. Atherosclerotic plaquing the coronary arteries. 4. 2.4 x 1.3 cm groundglass nodule in the right upper lobe followup exam in 6 months to document stability is warranted. 5. Large hiatal hernia. 6. Multiple calcified gallstones in the gallbladder. 7. Multiple simple cysts within the kidneys. Michael Vieyra MD Objective Remarks AAOx3, NAD PERRLA Diffuse BL expiratory wheezing S1S2 + RRR badomen soft, NT, ND Muscle strength 4/5 in lower extremities. Medications and IVs Current Medications Medications (Trade) Dose Ordered Sig/Dusty Route Start Time Stop Time Status Last Admin (Ecotrin Ec) 81 mg DAILY PO 10/07/16 09:00 10/08/16 08:44 (NS Flush) 2 ml UNSCH PRN IV FLUSH 10/06/16 19:15 (NS Flush) 2 ml BID IV FLUSH 10/06/16 21:00 10/08/16 20:05 (Zofran Inj) 4 mg Q6H PRN IVP 10/06/16 19:15 (Tylenol) 650 mg Q6H PRN PO 10/06/16 19:15 (Johana-Colace) 1 tab BID PO 10/06/16 21:00 10/08/16 20:05 (Milk Of Magnesia Liq) 30 ml Q12H PRN PO 10/06/16 19:15 (Senokot) 17.2 mg Q12H PRN PO 10/06/16 19:15 (Dulcolax Supp) 10 mg DAILY PRN RECTAL 10/06/16 19:15 (Lactulose Liq) 30 ml DAILY PRN PO 10/06/16 19:15 (Procardia Xl) 90 mg DAILY PO 10/07/16 09:00 10/08/16 08:45 (Ditropan) 5 mg Q12HR PO 10/06/16 21:00 10/08/16 20:05 (Paxil) 40 mg DAILY PO 10/07/16 09:00 10/08/16 08:44 (Pravachol) 80 mg DAILY PO 10/07/16 09:00 10/08/16 08:44 Miscellaneous Information Patient in critical care unit? Ass... Q361D .XX 10/07/16 03:30 (Chlorhexidine 2% Cloth) 3 pack DAILY@04 TOPICAL 10/07/16 04:00 10/11/16 04:01 10/07/16 04:00 (Chlorhexidine 2% Cloth) 3 pack UNSCH PRN TOPICAL 10/07/16 03:30 10/12/16 03:20 (Protonix) 40 mg DAILY PO 10/08/16 11:00 10/08/16 11:48 (Mag-Al Plus Susp Liq) 30 ml Q6H PRN PO 10/08/16 10:45 ([place] 5-325 Mg) 1 tab Q4H PRN PO 10/08/16 10:45 ([place] 5-325 Mg) 2 tab Q4H PRN PO 10/08/16 10:45 (SoluMEDROL INJ) 40 mg Q12HR IV PUSH 10/08/16 21:00 10/08/16 20:05 (Restoril) 7.5 mg HS PRN PO 10/08/16 23:30 10/09/16 00:26 A/P Problem List: (1) Chest pain ICD Code: R07.9 - Chest pain, unspecified Status: Acute (2) Unstable angina ICD Code: I20.0 - Unstable angina Status: Acute (3) Hypokalemia ICD Code: E87.6 - Hypokalemia Status: Acute (4) Renal insufficiency ICD Code: N28.9 - Disorder of kidney and ureter, unspecified Status: Acute (5) COPD (chronic obstructive pulmonary disease) ICD Code: J44.9 - Chronic obstructive pulmonary disease, unspecified Status: Acute (6) Lung nodule ICD Code: R91.1 - Solitary pulmonary nodule Status: Acute Assessment and Plan 1. Chest Pain: acute onset of substernal chest pain, pressure-like w/ radiation to shoulders. Initial trop negative, EKG w/ no acute ischemia. Check serial cardiac enzymes, lipid profile, Hgb A1c. Currently chest pain improved. CXR w/ chronic interstitial changes. CTA no PE, mild aneurysmal dilatation of aortic root, ascending aorta and proximal arch, no rupture or dissection, images reviewed by me. 10/07 Patient is chest pain free. seen by Cardiology. Nuclear scan is negative for ischemia. 2. Unstable Angina: follows w/ Dr. Meng as outpatient, Cardiology consulted by ER physician, recommended Heparin/Nitro gtt and likely cath in am. NPO, IVF, continue Heparin/Nitro, check cardiac enzymes as above. 10/07 Likely musculoskeletal chest pain. Seen by cardiology. Heparin gtt and Nitroglycerin discontinued. 3. Hypokalemia: K+ 3.1, s/p replacement in ER, will recheck and replace as needed. 10/07 K 3.0. Replace orally and monitor K. 4. IMELDA: Creatinine 1.24, previously 0.93 on 12/05/06, IVF for hydration, repeat labs in am. 10/07 Creatinine improving. DC fluids IV. Encourage po intake. 10/08 Creatinine slightly worsened. Resume gentle IV fluids. 5. COPD: Seeems to be on exacerbation. Wheezing on exam. Start IV steroids and iv antibiotics. 6. Lung Nodule: CTA w/ RUL groundglass nodule 2.4 x 1.3cm, recommendation for repeat CT in 6mo, pt aware of lung nodule in the past. 7. DVT Prophylaxis: SCD's. 8. Social work for d/c planning as needed. 9. Lower extremity weakness: Consult PT. 10. Hypokalemia: Severe. Replace IV and orally and continue to monitor PT. Problem Qualifiers (1) Chest pain: John Saha MD Oct 09, 2016 01:20
[2016-10-09] MEDS: metroNIDAZOLE 500 MG INJ 100 ML IV SCH ×3 (01:34→16:53)
[2016-10-09] MEDS: SODIUM CHLOR 0.9% 1000 ML INJ 1,000 ML IV SCH ×2 (01:35→13:47)
[2016-10-09] MEDS ORDERED: LEVOFLOXACIN 750 MG PREMIX INJ 150 ML IV SCH (02:30)
[2016-10-09 05:29] LABS: AUTOMATED NEUTROPHIL # 4.1 TH/MM3 (1.8-7.7); HEMATOCRIT 33.7 % (35.0-46.0); HEMO FLAGS DIFF FINAL; LYMPH % 7.4 % (9.0-44.0); LYMPHOCYTE # 0.3 TH/MM3 (1.0-4.8); MEAN CELL VOLUME 88.3 FL (80.0-100.0); MEAN CORPUSCULAR HEMOGLOBIN 30.1 PG (27.0-34.0); MEAN CORPUSCULAR HGB CONC 34.1 % (32.0-36.0); MONO % 2.4 % (0.0-8.0); NEUT % 90.2 % (16.0-70.0); PLATELET COUNT 141 TH/MM3 (150-450); RED BLOOD COUNT 3.81 MIL/MM3 (4.00-5.30); RED CELL DISTRIBUTION WIDTH 13.3 % (11.6-17.2); WHITE BLOOD COUNT 4.5 TH/MM3 (4.0-11.0)
[2016-10-09 06:42] LABS: ALKALINE PHOSPHATASE 60 U/L (45-117); ALT (GPT) 26 U/L (10-53); ANION GAP 9 MEQ/L (5-15); AST (GOT) 20 U/L (15-37); BLOOD UREA NITROGEN 23 MG/DL (7-18); CHLORIDE 103 MEQ/L (98-107); GLOMERULAR FILTRATION RATE 49 ML/MIN (>89); MAGNESIUM 2.3 MG/DL (1.5-2.5); POTASSIUM 4.1 MEQ/L (3.5-5.1); SODIUM (NA) 140 MEQ/L (136-145); TOTAL BILIRUBIN ADULT 0.3 MG/DL (0.2-1.0)
[2016-10-09] MEDS: RESP: ALBUTEROL 2.5 MG/IPRATROPIUM 0.5 MG NEB (SCH) NEB ×3 (08:03→21:17)
[2016-10-09] MEDS: PANTOPRAZOLE SOD 40 MG DELAYED RELEASE TAB PO SCH (08:28)
[2016-10-09] MEDS: OXYBUTYNIN CHLORIDE 5 MG TAB PO SCH ×2 (08:28→20:45)
[2016-10-09] MEDS: ASPIRIN EC 81 MG TABEC PO SCH (08:28)
[2016-10-09] MEDS: PARoxetine HCL 20 MG TAB PO SCH (08:28)
[2016-10-09] MEDS: DOCUSATE SODIUM 50 MG/SENNA 8.6 MG TAB PO SCH ×2 (08:28→20:45)
[2016-10-09] MEDS: SODIUM CHLORIDE 0.9% FLUSH 10 ML FLUSH IV FLUSH SCH ×2 (08:28→20:46)
[2016-10-09] MEDS: methylPREDNISolone SOD SUCC 40 MG/1 ML VIAL IV PUSH SCH (08:28)
[2016-10-09] MEDS: NIFEdipine 90 MG SUSTAINED RELEASE TAB PO SCH (08:28)
[2016-10-09] MEDS: PRAVASTATIN SOD 80 MG TAB PO SCH (08:28)
[2016-10-09] MEDS ORDERED: guaiFENesin/DEXTROMETHORPHAN 200 MG/20 MG/10 ML CUP PO PRN (13:15)
[2016-10-09] MEDS: BUDESONIDE-FORMOTEROL 160/4.5 MCG INHALER INH SCH ×2 (13:30→20:42)
[2016-10-09] MEDS ORDERED: methylPREDNISolone SOD SUCC 40 MG/1 ML VIAL IV PUSH SCH (14:00)
--- NOTE | 2016-10-09 15:42 | MB ---
cc: Jeannine CALZADA DATE OF CONSULTATION: 10/09/2016. REASON FOR CONSULTATION: HISTORY OF PRESENT ILLNESS: Ms. Madera is a 76-year-old white female who presented with left-sided chest discomfort as a cardiac alert. She was thought to have crescendo angina but she was seen by Dr. Meng's partner who felt that the pain was more musculoskeletal. She was not having an acute SD and a nuclear scan on the revealed no reversible ischemia. The patient has continued to complain of some chest discomfort but also belching and what sounds like reflux. She also told me that she has had an episode or two where food is getting stuck when she tries to swallow. It sounds like she has significant chronic reflux, although that is never really been evaluated in the past. Breathing has been pretty stable. She apparently has advanced COPD. She is followed by Dr. Chilel regularly. She uses an inhaler at home, does not recall the name, but she has not been on chronic oxygen and there is no history of sleep apnea. She also had a nodule noted in the right upper lobe on presentation on a CT scan and she says that that has been monitored since she moved her from [place] a few years ago and Dr. Chilel also is aware of that and monitoring that. Nothing needs to be done during the hospitalization with regard to that specifically. She has had no cough or congestion. She does have mild shortness of breath and was started on IV Solu-Medrol, Symbicort, Levaquin and nebulized aerosols with relief. PAST MEDICAL HISTORY: Past medical history other than that noted above: 1. Hypertension. 2. Hyperlipidemia. 3. Anxiety. 4. Depression. 5. She has had an abnormality of the ascending aorta which has been recognized by Dr. Meng by echo she had a CTA on presentation. There is no evidence of dissection. 6. She has had a hysterectomy. ALLERGIES: She is allergic to PENICILLIN. MEDICATIONS: Reviewed in the electronic medical record. SOCIAL HISTORY: She lives with her cousin here. She is from [place] but lives here permanently now. She smoked up to three packs of cigarettes a day. She smoked from the time she was 14 until she was 67, quit at that point and has not smoked since. Also apparently was a heavy alcohol user up until the time she quit smoking but none at this time. She is . She has two children, disabled daughter and a son who lives in [place]. REVIEW OF SYSTEMS: She has had no hemoptysis. No purulent sputum. No recorded fever. The reflux symptoms are suggestive as noted above. She has had no change in bowel habits. She does not have chronic edema, orthopnea or PND. PHYSICAL EXAMINATION: GENERAL: An obese elderly white female in no acute distress. VITAL SIGNS: Afebrile, pulse is 90, respirations 18-22 and her sat on room air is 92-94%. HEAD, EYES, EARS, NOSE, THROAT: Her sclerae are anicteric. Mucous membranes are moist. NECK: Neck veins are flat. CHEST/LUNGS: She has no wheezes or rales audible, diminished breath sounds. No congestion. HEART: Regular rhythm. No harsh murmur. No audible S3. ABDOMEN: Abdomen is obese but soft and she has no peripheral edema or calf tenderness. IMAGING STUDIES: CT as noted above. Chest x-ray October 08, nothing acute. LABORATORY DATA: White count is 4500, hemoglobin is 11, BUN is 23, creatinine of 1.09. MRSA nasal screen negative. DISCUSSION: Ms. Madera presents with a known history of COPD and apparently a known history of a nodule in her lung which has been followed by Dr. Chilel as an outpatient. I think we can continue the current pulmonary therapy today and then tomorrow if things remain stable switch her over to oral therapy. I will refer her back to Dr. Chilel follow up tomorrow and of course he will follow this nodule in her lung as well. Further diagnostic and/or therapeutic intervention will depend on her ongoing clinical course. R. MD PHILIP Shanks/CHILO /2:37 PM /3:30 PM
[2016-10-09] MEDS: POTASSIUM PHOSPHATE/SODIUM PHOSPHATE 250 MG TAB PO SCH ×2 (16:49→20:45)
--- NOTE | 2016-10-09 20:22 | HHI.PR ---
Subjective Remarks Deferred entry - patient seen earlier at 1:00 pm Patient states coug is much improved denies fevers or chills patient states yesterday experienced hands and BL lower extremity tremors denies cp Objective Vitals Vital Signs Date Time Temp Pulse Resp B/P (MAP) Pulse Ox O2 Delivery O2 Flow Rate FiO2 10/09/16 16:03 98.1 91 20 120/79 (93) 94 10/09/16 12:00 97.6 93 22 171/87 (115) 94 10/09/16 08:03 96 21 10/09/16 08:00 98.0 84 20 176/91 (119) 95 10/09/16 08:00 133 10/09/16 07:00 Room Air 10/09/16 04:00 Room Air 10/09/16 04:00 97.7 85 20 151/87 (108) 92 10/09/16 00:00 97.5 90 16 149/94 (112) 93 10/09/16 00:00 Room Air I/O 10/08/16 10/08/16 10/08/16 10/09/16 10/09/16 10/09/16 06:59 14:59 22:59 06:59 14:59 22:59 Intake Total 240 ml 480 ml 600 ml 1128 ml 100 ml 1645 ml Output Total 500 ml 800 ml 400 ml 400 ml 1000 ml Balance -260 ml -320 ml 200 ml 728 ml 100 ml 645 ml Intake Oral 240 ml 480 ml 600 ml 360 ml 600 ml IV Total 0 ml 768 ml 100 ml 1045 ml Output Urine Total 500 ml 800 ml 400 ml 400 ml 1000 ml # Bowel Movements 0 1 0 0 0 Result Diagram: 10/09/16 0425 10/09/16 0425 Imaging Last Impressions Chest X-Ray 10/08/16 0000 Signed Impressions: Service Date/Time: Saturday, October 08, 2016 11:03 - CONCLUSION: No acute disease. Jeffery Hong MD Myocardial Perfusion Scan Nuc Med 10/07/16 0000 Signed Impressions: Service Date/Time: Friday, October 07, 2016 12:17 - CONCLUSION: 1. No reversible perfusion defect indicate stress-induced myocardial ischemia identified. RISK CATEGORY: Low (<1%% Annual Mortality Rate) Michael Vieyra MD Aorta CTA 10/06/16 0000 Signed Impressions: Service Date/Time: September 15:51 - CONCLUSION: 1. 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 There is no evidence of rupture or dissection. 2. The pulmonary vasculature is well visualized centrally. No PE is seen. 3. Atherosclerotic plaquing the coronary arteries. 4. 2.4 x 1.3 cm groundglass nodule in the right upper lobe followup exam in 6 months to document stability is warranted. 5. Large hiatal hernia. 6. Multiple calcified gallstones in the gallbladder. 7. Multiple simple cysts within the kidneys. Michael Vieyra MD Objective Remarks AAOx3, NAD PERRLA There is decreased air movement especially on expiration, Wheezing is mild and scattered. No rhonchi auscultated. S1S2 + RRR abdomen soft, NT, ND Muscle strength 4/5 in lower extremities. Medications and IVs Current Medications Medications (Trade) Dose Ordered Sig/Dusty Route Start Time Stop Time Status Last Admin (Ecotrin Ec) 81 mg DAILY PO 10/07/16 09:00 10/09/16 08:28 (NS Flush) 2 ml UNSCH PRN IV FLUSH 10/06/16 19:15 (NS Flush) 2 ml BID IV FLUSH 10/06/16 21:00 10/09/16 08:28 (Zofran Inj) 4 mg Q6H PRN IVP 10/06/16 19:15 (Tylenol) 650 mg Q6H PRN PO 10/06/16 19:15 10/09/16 08:28 (Johana-Colace) 1 tab BID PO 10/06/16 21:00 10/09/16 08:28 (Milk Of Magnesia Liq) 30 ml Q12H PRN PO 10/06/16 19:15 (Senokot) 17.2 mg Q12H PRN PO 10/06/16 19:15 (Dulcolax Supp) 10 mg DAILY PRN RECTAL 10/06/16 19:15 (Lactulose Liq) 30 ml DAILY PRN PO 10/06/16 19:15 (Procardia Xl) 90 mg DAILY PO 10/07/16 09:00 10/09/16 08:28 (Ditropan) 5 mg Q12HR PO 10/06/16 21:00 10/09/16 08:28 (Paxil) 40 mg DAILY PO 10/07/16 09:00 10/09/16 08:28 (Pravachol) 80 mg DAILY PO 10/07/16 09:00 10/09/16 08:28 Miscellaneous Information Patient in critical care unit? Ass... Q361D .XX 10/07/16 03:30 (Chlorhexidine 2% Cloth) 3 pack DAILY@04 TOPICAL 10/07/16 04:00 10/11/16 04:01 10/07/16 04:00 (Chlorhexidine 2% Cloth) 3 pack UNSCH PRN TOPICAL 10/07/16 03:30 10/12/16 03:20 (Duoneb Neb) 1 ampule Q2HR NEB PRN NEB 10/08/16 05:45 10/08/16 08:43 (Duoneb Neb) 1 ampule Q6HR WHILE AWAKE NEB NEB 10/08/16 14:00 10/09/16 13:30 (Protonix) 40 mg DAILY PO 10/08/16 11:00 10/09/16 08:28 (Mag-Al Plus Susp Liq) 30 ml Q6H PRN PO 10/08/16 10:45 ([place] 5-325 Mg) 1 tab Q4H PRN PO 10/08/16 10:45 ([place] 5-325 Mg) 2 tab Q4H PRN PO 10/08/16 10:45 (Restoril) 7.5 mg HS PRN PO 10/08/16 23:30 10/09/16 00:26 Levofloxacin/ Dextrose 150 ml @ 100 mls/hr Q48H IV 10/09/16 02:30 10/09/16 03:00 Metronidazole 100 ml @ 100 mls/hr Q8H IV 10/09/16 01:30 10/09/16 16:53 Sodium Chloride 1,000 ml @ 84 mls/hr [id number] IV 10/09/16 01:30 10/09/16 13:47 (Robitussin Dm 200-20 Mg/10 ml Liq) 10 ml Q4H PRN PO 10/09/16 13:15 (SoluMEDROL INJ) 40 mg Q8HR IV PUSH 10/09/16 14:00 10/09/16 13:46 (Symbicort 160-4.5 Inh) 2 puff Q12HR INH 10/09/16 13:30 (K-Phos Neutral) 250 mg Q8HR PO 10/09/16 14:00 10/09/16 16:49 Urinary Catheter: No Vascular Central Line Catheter: No A/P Problem List: (1) Chest pain ICD Code: R07.9 - Chest pain, unspecified Status: Acute (2) Unstable angina ICD Code: I20.0 - Unstable angina Status: Acute (3) Hypokalemia ICD Code: E87.6 - Hypokalemia Status: Acute (4) Renal insufficiency ICD Code: N28.9 - Disorder of kidney and ureter, unspecified Status: Acute (5) Lung nodule ICD Code: R91.1 - Solitary pulmonary nodule Status: Acute (6) COPD with exacerbation ICD Code: J44.1 - Chronic obstructive pulmonary disease with (acute) exacerbation Status: Acute Assessment and Plan 1. Chest Pain: acute onset of substernal chest pain, pressure-like w/ radiation to shoulders. Initial trop negative, EKG w/ no acute ischemia. Check serial cardiac enzymes, lipid profile, Hgb A1c. Currently chest pain improved. CXR w/ chronic interstitial changes. CTA no PE, mild aneurysmal dilatation of aortic root, ascending aorta and proximal arch, no rupture or dissection, images reviewed by me. Patient is chest pain free. seen by Cardiology. Nuclear scan is negative for ischemia. 2. Unstable Angina: follows w/ Dr. Meng as outpatient, Cardiology consulted by ER physician, recommended Heparin/Nitro gtt and likely cath in am. NPO, IVF, continue Heparin/Nitro, check cardiac enzymes as above. Likely musculoskeletal chest pain. Seen by cardiology. Heparin gtt and Nitroglycerin discontinued. 3. Hypokalemia: K+ 3.1, s/p replacement in ER, will recheck and replace as needed. 10/09 K 4.1, continue to monitor BMP. 4. IMELDA: Creatinine 1.24, previously 0.93 on 12/05/06, IVF for hydration, repeat labs in am. 10/07 Creatinine improving. DC fluids IV. Encourage po intake. 10/08 Creatinine slightly worsened. Resume gentle IV fluids. 10/09 Creatinine improving, continue iv fluids. 5. COPD exacerbation: Seems to be on exacerbation. improving. Continue IV Solumedrol, add Symbicort. Consult pulmonology. 6. Lung Nodule: CTA w/ RUL groundglass nodule 2.4 x 1.3cm, recommendation for repeat CT in 6mo, pt aware of lung nodule in the past. 7. DVT Prophylaxis: SCD's. 8. Social work for d/c planning as needed. 9. Lower extremity weakness: Consult PT. Discharge Planning Possible Dc in 1 or 2 days pending clinical improvement and pulmonology consultation. Problem Qualifiers (1) Chest pain: John Saha MD Oct 09, 2016 20:22
[2016-10-10] VITALS (9 sets, daily range): BP systolic 131–173; BP diastolic 67–95; PULSE 73–105; RESP 16–20; TEMP 97.3–97.8; O2SAT 93–96
[2016-10-10] MEDS: TEMAZEPAM 7.5 MG CAP PO PRN (00:11)
[2016-10-10] MEDS: methylPREDNISolone SOD SUCC 40 MG/1 ML VIAL IV PUSH SCH ×2 (00:39→09:47)
[2016-10-10] MEDS: metroNIDAZOLE 500 MG INJ 100 ML IV SCH ×2 (00:40→09:48)
[2016-10-10] MEDS: SODIUM CHLOR 0.9% 1000 ML INJ 1,000 ML IV SCH ×2 (01:10→10:00)
[2016-10-10] MEDS: CHLORHEXIDINE GLUCONATE 2 % 1 PACK (2 CLOTHS)(taper/protocol) TOPICAL SCH (01:11)
[2016-10-10] MEDS: POTASSIUM PHOSPHATE/SODIUM PHOSPHATE 250 MG TAB PO SCH ×3 (06:07→22:17)
[2016-10-10] MEDS: RESP: ALBUTEROL 2.5 MG/IPRATROPIUM 0.5 MG NEB (SCH) NEB ×3 (07:38→19:30)
[2016-10-10 08:50] LABS: BICARBONATE 25.4 MEQ/L (21.0-32.0); POTASSIUM 4.1 MEQ/L (3.5-5.1)
[2016-10-10] MEDS: SODIUM CHLORIDE 0.9% FLUSH 10 ML FLUSH IV FLUSH SCH ×2 (09:00→22:18)
[2016-10-10 09:08] LABS: MEAN CELL VOLUME 89.1 FL (80.0-100.0); MEAN CORPUSCULAR HEMOGLOBIN 29.7 PG (27.0-34.0); MEAN CORPUSCULAR HGB CONC 33.3 % (32.0-36.0); PLATELET COUNT 143 TH/MM3 (150-450); RED BLOOD COUNT 3.93 MIL/MM3 (4.00-5.30); RED CELL DISTRIBUTION WIDTH 13.6 % (11.6-17.2); REVIEW FLAG FINAL; WHITE BLOOD COUNT 6.6 TH/MM3 (4.0-11.0)
[2016-10-10] MEDS: DOCUSATE SODIUM 50 MG/SENNA 8.6 MG TAB PO SCH ×2 (09:47→21:00)
[2016-10-10] MEDS: PANTOPRAZOLE SOD 40 MG DELAYED RELEASE TAB PO SCH (09:47)
[2016-10-10] MEDS: PARoxetine HCL 20 MG TAB PO SCH (09:47)
[2016-10-10] MEDS: NIFEdipine 90 MG SUSTAINED RELEASE TAB PO SCH (09:47)
[2016-10-10] MEDS: ASPIRIN EC 81 MG TABEC PO SCH (09:47)
[2016-10-10] MEDS: OXYBUTYNIN CHLORIDE 5 MG TAB PO SCH ×2 (09:47→22:17)
[2016-10-10] MEDS: PRAVASTATIN SOD 80 MG TAB PO SCH (09:47)
[2016-10-10] MEDS: BUDESONIDE-FORMOTEROL 160/4.5 MCG INHALER INH SCH ×2 (09:48→22:18)
--- NOTE | 2016-10-10 15:56 | HHI.PR ---
Subjective Remarks ALERT NO SOB AT REST Objective Vital Signs Date Time Temp Pulse Resp B/P (MAP) Pulse Ox O2 Delivery O2 Flow Rate FiO2 10/10/16 12:00 97.7 90 16 141/83 (102) 95 10/10/16 08:00 Room Air 10/10/16 08:00 97.6 77 16 173/79 (110) 96 10/10/16 07:50 73 10/10/16 07:39 96 Nasal Cannula 2.00 10/10/16 04:00 97.8 82 20 141/67 (91) 93 10/10/16 00:00 97.8 85 18 136/71 (92) 96 10/09/16 21:20 92 21 10/09/16 20:00 85 10/09/16 20:00 97.7 91 20 132/63 (86) 94 10/09/16 20:00 Room Air 10/09/16 16:03 98.1 91 20 120/79 (93) 94 I/O 10/09/16 10/09/16 10/09/16 10/10/16 10/10/16 10/10/16 07:00 15:00 23:00 07:00 15:00 23:00 Intake Total 1128 ml 100 ml 1645 ml 580 ml 100 ml Output Total 400 ml 1000 ml 1400 ml Balance 728 ml 100 ml 645 ml -820 ml 100 ml Intake Oral 360 ml 600 ml 580 ml IV Total 768 ml 100 ml 1045 ml 100 ml Output Urine Total 400 ml 1000 ml 1400 ml # Bowel Movements 0 0 0 1 Result Diagram: 10/10/1661210/10/16612 Medications and IVs GENERAL: SKIN: Warm and dry. HEAD: Atraumatic. Normocephalic. EYES: Pupils equal and round. No scleral icterus. No injection or drainage. ENT: No nasal bleeding or discharge. Mucous membranes pink and moist. NECK: Trachea midline. No JVD. CARDIOVASCULAR: Regular rate and rhythm. RESPIRATORY: No accessory muscle use. Clear to auscultation. Breath sounds equal bilaterally. GASTROINTESTINAL: Abdomen soft, non-tender, nondistended. Hepatic and splenic margins not palpable. MUSCULOSKELETAL: Extremities without clubbing, cyanosis, or edema. No obvious deformities. NEUROLOGICAL: Awake and alert. No obvious cranial nerve deficits. Motor grossly within normal limits. Five out of 5 muscle strength in the arms and legs. Normal speech. PSYCHIATRIC: Appropriate mood and affect; insight and judgment normal. Assessment and Plan Assessment and Plan COPD RUL NODULE PLAN O2 NEEDED BRONCHODILATOR THERAPY F/U LUNG NODULE OUT PATIENT Getachew Chilel MD Oct 10, 2016 15:56
[2016-10-10] MEDS ORDERED: LEVOFLOXACIN 750 MG PREMIX INJ 150 ML IV SCH ×2 (16:00→17:00)
--- NOTE | 2016-10-10 21:09 | HHI.PR ---
Subjective Remarks Deferred entry - patient seen at 17:00 hrs Sob id much improved cough is still present but resolving denies fevers and chills denies any further tremors Objective Vitals Vital Signs Date Time Temp Pulse Resp B/P (MAP) Pulse Ox O2 Delivery O2 Flow Rate FiO2 10/10/16 19:30 95 Nasal Cannula 2.00 10/10/16 16:00 97.3 90 17 131/76 (94) 95 10/10/16 12:00 97.7 90 16 141/83 (102) 95 10/10/16 08:00 Room Air 10/10/16 08:00 97.6 77 16 173/79 (110) 96 10/10/16 07:50 73 10/10/16 07:39 96 Nasal Cannula 2.00 10/10/16 04:00 97.8 82 20 141/67 (91) 93 10/10/16 00:00 97.8 85 18 136/71 (92) 96 10/09/16 21:20 92 21 I/O 10/09/16 10/09/16 10/09/16 10/10/16 10/10/16 10/10/16 06:59 14:59 22:59 06:59 14:59 22:59 Intake Total 1128 ml 100 ml 1645 ml 580 ml 100 ml 1060 ml Output Total 400 ml 1000 ml 1400 ml Balance 728 ml 100 ml 645 ml -820 ml 100 ml 1060 ml Intake Oral 360 ml 600 ml 580 ml 960 ml IV Total 768 ml 100 ml 1045 ml 100 ml 100 ml Output Urine Total 400 ml 1000 ml 1400 ml # Voids 5 # Bowel Movements 0 0 0 1 1 Result Diagram: 10/10/16 0613 10/10/16 0613 Imaging Last Impressions Chest X-Ray 10/08/16 0000 Signed Impressions: Service Date/Time: Saturday, October 08, 2016 11:03 - CONCLUSION: No acute disease. Jeffery Hong MD Myocardial Perfusion Scan Nuc Med 10/07/16 0000 Signed Impressions: Service Date/Time: Friday, October 07, 2016 12:17 - CONCLUSION: 1. No reversible perfusion defect indicate stress-induced myocardial ischemia identified. RISK CATEGORY: Low (<1%% Annual Mortality Rate) Michael Vieyra MD Aorta CTA 10/06/16 0000 Signed Impressions: Service Date/Time: September 15:51 - CONCLUSION: 1. 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 There is no evidence of rupture or dissection. 2. The pulmonary vasculature is well visualized centrally. No PE is seen. 3. Atherosclerotic plaquing the coronary arteries. 4. 2.4 x 1.3 cm groundglass nodule in the right upper lobe followup exam in 6 months to document stability is warranted. 5. Large hiatal hernia. 6. Multiple calcified gallstones in the gallbladder. 7. Multiple simple cysts within the kidneys. Michael Vieyra MD Objective Remarks AAOx3, NAD PERRLA Clear to auscultation BL with good air movement S1S2 + RRR abdomen soft, NT, ND Muscle strength 4/5 in lower extremities. Medications and IVs Current Medications Medications (Trade) Dose Ordered Sig/Dusty Route Start Time Stop Time Status Last Admin (Ecotrin Ec) 81 mg DAILY PO 10/07/16 09:00 10/10/16 09:47 (NS Flush) 2 ml UNSCH PRN IV FLUSH 10/06/16 19:15 (NS Flush) 2 ml BID IV FLUSH 10/06/16 21:00 10/09/16 08:28 (Zofran Inj) 4 mg Q6H PRN IVP 10/06/16 19:15 (Tylenol) 650 mg Q6H PRN PO 10/06/16 19:15 10/09/16 08:28 (Johana-Colace) 1 tab BID PO 10/06/16 21:00 10/10/16 09:47 (Milk Of Magnesia Liq) 30 ml Q12H PRN PO 10/06/16 19:15 (Senokot) 17.2 mg Q12H PRN PO 10/06/16 19:15 (Dulcolax Supp) 10 mg DAILY PRN RECTAL 10/06/16 19:15 (Lactulose Liq) 30 ml DAILY PRN PO 10/06/16 19:15 (Procardia Xl) 90 mg DAILY PO 10/07/16 09:00 10/10/16 09:47 (Ditropan) 5 mg Q12HR PO 10/06/16 21:00 10/10/16 09:47 (Paxil) 40 mg DAILY PO 10/07/16 09:00 10/10/16 09:47 (Pravachol) 80 mg DAILY PO 10/07/16 09:00 10/10/16 09:47 Miscellaneous Information Patient in critical care unit? Ass... Q361D .XX 10/07/16 03:30 (Chlorhexidine 2% Cloth) 3 pack DAILY@04 TOPICAL 10/07/16 04:00 10/11/16 04:01 10/07/16 04:00 (Chlorhexidine 2% Cloth) 3 pack UNSCH PRN TOPICAL 10/07/16 03:30 10/12/16 03:20 (Duoneb Neb) 1 ampule Q2HR NEB PRN NEB 10/08/16 05:45 10/08/16 08:43 (Duoneb Neb) 1 ampule Q6HR WHILE AWAKE NEB NEB 10/08/16 14:00 10/10/16 19:30 (Protonix) 40 mg DAILY PO 10/08/16 11:00 10/10/16 09:47 (Mag-Al Plus Susp Liq) 30 ml Q6H PRN PO 10/08/16 10:45 ([place] 5-325 Mg) 1 tab Q4H PRN PO 10/08/16 10:45 ([place] 5-325 Mg) 2 tab Q4H PRN PO 10/08/16 10:45 (Restoril) 7.5 mg HS PRN PO 10/08/16 23:30 10/10/16 00:11 Sodium Chloride 1,000 ml @ 84 mls/hr [id number] IV 10/09/16 01:30 10/10/16 10:00 (Robitussin Dm 200-20 Mg/10 ml Liq) 10 ml Q4H PRN PO 10/09/16 13:15 (Symbicort 160-4.5 Inh) 2 puff Q12HR INH 10/09/16 13:30 10/10/16 09:48 (K-Phos Neutral) 250 mg Q8HR PO 10/09/16 14:00 10/10/16 14:43 (Flagyl) 500 mg Q8HR PO 10/10/16 22:00 (Deltasone) 20 mg BID PO 10/10/16 21:00 Levofloxacin/ Dextrose 150 ml @ 100 mls/hr Q24H IV 10/11/16 17:00 Urinary Catheter: No Vascular Central Line Catheter: No A/P Problem List: (1) Chest pain ICD Code: R07.9 - Chest pain, unspecified Status: Acute (2) Unstable angina ICD Code: I20.0 - Unstable angina Status: Acute (3) Hypokalemia ICD Code: E87.6 - Hypokalemia Status: Acute (4) Renal insufficiency ICD Code: N28.9 - Disorder of kidney and ureter, unspecified Status: Acute (5) Lung nodule ICD Code: R91.1 - Solitary pulmonary nodule Status: Acute (6) COPD with exacerbation ICD Code: J44.1 - Chronic obstructive pulmonary disease with (acute) exacerbation Status: Acute Assessment and Plan 1. Chest Pain: acute onset of substernal chest pain, pressure-like w/ radiation to shoulders. Initial trop negative, EKG w/ no acute ischemia. Check serial cardiac enzymes, lipid profile, Hgb A1c. Currently chest pain improved. CXR w/ chronic interstitial changes. CTA no PE, mild aneurysmal dilatation of aortic root, ascending aorta and proximal arch, no rupture or dissection, images reviewed by me. Patient is chest pain free. seen by Cardiology. Nuclear scan is negative for ischemia. 2. Unstable Angina: follows w/ Dr. Meng as outpatient, Cardiology consulted by ER physician, recommended Heparin/Nitro gtt and likely cath in am. NPO, IVF, continue Heparin/Nitro, check cardiac enzymes as above. Likely musculoskeletal chest pain. Seen by cardiology. Heparin gtt and Nitroglycerin discontinued. 3. Hypokalemia: K+ 3.1, s/p replacement in ER, will recheck and replace as needed. Replaced and resolved. Continue to monitor BMP. 4. IMELDA: Creatinine 1.24, previously 0.93 on 12/05/06, IVF for hydration, repeat labs in am. 10/10 Creatinine improving and almost back to baseline. DC IV fluids. 5. COPD exacerbation: Seems to be on exacerbation. improving. Continue IV Solumedrol, add Symbicort. Consult pulmonology. 10/10 DC IV antibiotics and switch to oral today. DC in am if patient tolerating oral antibiotics. DC IV Solumedrol and start oral steroids. 6. Lung Nodule: CTA w/ RUL groundglass nodule 2.4 x 1.3cm, recommendation for repeat CT in 6mo, pt aware of lung nodule in the past. 10/10 Pulmonary consulted - fu lung nodule as an outpatient. 7. DVT Prophylaxis: SCD's. 8. Social work for d/c planning as needed. 9. Lower extremity weakness: PT consulted - patient will need HHC PT. Discharge Planning DC in am. Problem Qualifiers (1) Chest pain: John Saha MD Oct 10, 2016 21:09
[2016-10-10] MEDS: predniSONE 20 MG TAB PO SCH (22:17)
[2016-10-10] MEDS: metroNIDAZOLE 500 MG TAB PO SCH (22:20)
[2016-10-11] VITALS (8 sets, daily range): BP systolic 144–170; BP diastolic 84–100; PULSE 76–92; RESP 18–20; TEMP 97.5–98.2; O2SAT 92–98
[2016-10-11] MEDS: CHLORHEXIDINE GLUCONATE 2 % 1 PACK (2 CLOTHS)(taper/protocol) TOPICAL SCH (04:00)
[2016-10-11] MEDS: metroNIDAZOLE 500 MG TAB PO SCH ×3 (05:32→20:22)
[2016-10-11] MEDS: POTASSIUM PHOSPHATE/SODIUM PHOSPHATE 250 MG TAB PO SCH ×3 (05:32→20:22)
[2016-10-11] MEDS: SODIUM CHLORIDE 0.9% FLUSH 10 ML FLUSH IV FLUSH SCH ×2 (08:05→20:22)
[2016-10-11] MEDS: predniSONE 20 MG TAB PO SCH ×2 (08:20→20:22)
[2016-10-11] MEDS: PARoxetine HCL 20 MG TAB PO SCH (08:21)
[2016-10-11] MEDS: PANTOPRAZOLE SOD 40 MG DELAYED RELEASE TAB PO SCH (08:21)
[2016-10-11] MEDS: PRAVASTATIN SOD 80 MG TAB PO SCH (08:21)
[2016-10-11] MEDS: ASPIRIN EC 81 MG TABEC PO SCH (08:21)
[2016-10-11] MEDS: DOCUSATE SODIUM 50 MG/SENNA 8.6 MG TAB PO SCH (08:21)
[2016-10-11] MEDS: OXYBUTYNIN CHLORIDE 5 MG TAB PO SCH ×2 (08:21→20:22)
[2016-10-11] MEDS: BUDESONIDE-FORMOTEROL 160/4.5 MCG INHALER INH SCH ×2 (08:22→20:22)
[2016-10-11] MEDS: NIFEdipine 90 MG SUSTAINED RELEASE TAB PO SCH (08:22)
[2016-10-11] MEDS: RESP: ALBUTEROL 2.5 MG/IPRATROPIUM 0.5 MG NEB (SCH) NEB ×3 (08:47→19:55)
[2016-10-11] MEDS ORDERED: LEVOFLOXACIN 750 MG TAB PO SCH (09:00)
[2016-10-11] MEDS ORDERED: HYDROCHLOROTHIAZIDE 25 MG TAB PO SCH (11:30)
[2016-10-11] MEDS ORDERED: LOSARTAN 50 MG TAB PO SCH (11:30)
[2016-10-11] MEDS ORDERED: LEVA750T9 PO (12:09)
[2016-10-11] MEDS ORDERED: METR-1 PO (12:09)
[2016-10-11] MEDS ORDERED: PANT40TA3 PO (12:09)
[2016-10-11] MEDS ORDERED: SYMB160A INH (12:09)
[2016-10-11] MEDS ORDERED: PRED20 PO (12:09)
[2016-10-11] MEDS ORDERED: ASPI-99 PO (12:09)
--- NOTE | 2016-10-11 12:12 | HHI.DCPOC ---
Discharge Care Plan Diagnosis: (1) HTN (hypertension) (2) Hypokalemia (3) Renal insufficiency (4) Lung nodule (5) COPD with exacerbation (6) Chest pain (7) IMELDA (acute kidney injury) Goals to Promote Your Health * To prevent worsening of your condition and complications * To maintain your health at the optimal level Directions to Meet Your Goals Take your medications as prescribed Follow your dietary instruction Follow activity as directed Keep your appointments as scheduled Take your immunizations and boosters as scheduled If your symptoms worsen call your PCP, if no PCP go to Urgent Care Center or Emergency Room Smoking is Dangerous to Your Health. Avoid second hand smoke Call the 24-hour hour crisis hotline for domestic abuse at John Saha MD Oct 11, 2016 12:12
--- NOTE | 2016-10-11 12:15 | HHI.FF ---
Face to Face Verification Diagnosis: (1) COPD with exacerbation (2) IMELDA (acute kidney injury) (3) Lung nodule (4) HTN (hypertension) (5) Chest pain (6) Hypokalemia Physical Therapy Order: Improve ambulation, Strength and gait training Home Health Nursing Order: Signs/symptoms of disease process Nursing assessment with vital signs I have seen patient Catie Madera on 10/11/16. My clinical findings support the need for the requested home health care services because: Patient has SOB High risk of falls Infection w/ risk of complications I certify that my clinical findings support that this patient is homebound because: Hx COPD- exertion dyspnea/weakness Unsteady gait/balance Unsafe to leave home unassisted Unable to use public transportation John Saha MD Oct 11, 2016 12:15
[2016-10-11] MEDS ORDERED: LEVOFLOXACIN 750 MG PREMIX INJ 150 ML IV SCH (17:00)
--- NOTE | 2016-10-11 17:31 | HHI.PR ---
Subjective Remarks deferred entry - patient seen at 11:45 am Patient denies cp/sob bp noted to be elevated with a sbp in the 170's Objective Vitals Vital Signs Date Time Temp Pulse Resp B/P (MAP) Pulse Ox O2 Delivery O2 Flow Rate FiO2 10/11/16 17:00 98 Nasal Cannula 2.00 10/11/16 16:00 98.2 90 18 144/84 (104) 92 10/11/16 11:52 97.9 92 18 170/85 (113) 94 10/11/16 08:50 98 Nasal Cannula 2.00 10/11/16 08:00 97.9 82 18 164/100 (121) 92 10/11/16 07:55 Room Air 21 10/11/16 04:00 97.7 81 18 161/94 (116) 96 10/11/16 00:00 97.5 81 20 146/88 (107) 96 10/10/16 22:10 Room Air 10/10/16 20:00 105 10/10/16 20:00 97.7 92 20 146/95 (112) 93 10/10/16 19:30 95 Nasal Cannula 2.00 I/O 10/10/16 10/10/16 10/10/16 10/11/16 10/11/16 10/11/16 06:59 14:59 22:59 06:59 14:59 22:59 Intake Total 580 ml 100 ml 1300 ml Output Total 1400 ml 300 ml 250 ml Balance -820 ml 100 ml 1000 ml -250 ml Intake Oral 580 ml 1200 ml IV Total 100 ml 100 ml Output Urine Total 1400 ml 300 ml 250 ml # Voids 6 # Bowel Movements 0 1 2 Result Diagram: 10/10/16 0613 10/10/16 0613 Imaging Last Impressions Chest X-Ray 10/08/16 0000 Signed Impressions: Service Date/Time: Saturday, October 08, 2016 11:03 - CONCLUSION: No acute disease. Jeffery Hong MD Myocardial Perfusion Scan Nuc Med 10/07/16 0000 Signed Impressions: Service Date/Time: Friday, October 07, 2016 12:17 - CONCLUSION: 1. No reversible perfusion defect indicate stress-induced myocardial ischemia identified. RISK CATEGORY: Low (<1%% Annual Mortality Rate) Michael Vieyra MD Aorta CTA 10/06/16 0000 Signed Impressions: Service Date/Time: September 15:51 - CONCLUSION: 1. 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 There is no evidence of rupture or dissection. 2. The pulmonary vasculature is well visualized centrally. No PE is seen. 3. Atherosclerotic plaquing the coronary arteries. 4. 2.4 x 1.3 cm groundglass nodule in the right upper lobe followup exam in 6 months to document stability is warranted. 5. Large hiatal hernia. 6. Multiple calcified gallstones in the gallbladder. 7. Multiple simple cysts within the kidneys. Michael Vieyra MD Objective Remarks AAOx3, NAD PERRLA Clear to auscultation BL with good air movement S1S2 + RRR abdomen soft, NT, ND Muscle strength 4/5 in lower extremities. Medications and IVs Current Medications Medications (Trade) Dose Ordered Sig/Dusty Route Start Time Stop Time Status Last Admin (Ecotrin Ec) 81 mg DAILY PO 10/07/16 09:00 10/11/16 08:21 (NS Flush) 2 ml UNSCH PRN IV FLUSH 10/06/16 19:15 (NS Flush) 2 ml BID IV FLUSH 10/06/16 21:00 10/11/16 08:05 (Zofran Inj) 4 mg Q6H PRN IVP 10/06/16 19:15 (Tylenol) 650 mg Q6H PRN PO 10/06/16 19:15 10/09/16 08:28 (Johana-Colace) 1 tab BID PO 10/06/16 21:00 10/11/16 08:21 (Milk Of Magnesia Liq) 30 ml Q12H PRN PO 10/06/16 19:15 (Senokot) 17.2 mg Q12H PRN PO 10/06/16 19:15 (Dulcolax Supp) 10 mg DAILY PRN RECTAL 10/06/16 19:15 (Lactulose Liq) 30 ml DAILY PRN PO 10/06/16 19:15 (Procardia Xl) 90 mg DAILY PO 10/07/16 09:00 10/11/16 08:22 (Ditropan) 5 mg Q12HR PO 10/06/16 21:00 10/11/16 08:21 (Paxil) 40 mg DAILY PO 10/07/16 09:00 10/11/16 08:21 (Pravachol) 80 mg DAILY PO 10/07/16 09:00 10/11/16 08:21 Miscellaneous Information Patient in critical care unit? Ass... Q361D .XX 10/07/16 03:30 (Chlorhexidine 2% Cloth) 3 pack UNSCH PRN TOPICAL 10/07/16 03:30 10/12/16 03:20 (Duoneb Neb) 1 ampule Q2HR NEB PRN NEB 10/08/16 05:45 10/08/16 08:43 (Duoneb Neb) 1 ampule Q6HR WHILE AWAKE NEB NEB 10/08/16 14:00 10/11/16 14:07 (Protonix) 40 mg DAILY PO 10/08/16 11:00 10/11/16 08:21 (Mag-Al Plus Susp Liq) 30 ml Q6H PRN PO 10/08/16 10:45 (Carleton 5-325 Mg) 1 tab Q4H PRN PO 10/08/16 10:45 (Carleton 5-325 Mg) 2 tab Q4H PRN PO 10/08/16 10:45 (Restoril) 7.5 mg HS PRN PO 10/08/16 23:30 10/10/16 00:11 (Robitussin Dm 200-20 Mg/10 ml Liq) 10 ml Q4H PRN PO 10/09/16 13:15 (Symbicort 160-4.5 Inh) 2 puff Q12HR INH 10/09/16 13:30 10/11/16 08:22 (K-Phos Neutral) 250 mg Q8HR PO 10/09/16 14:00 10/11/16 13:02 (Flagyl) 500 mg Q8HR PO 10/10/16 22:00 10/11/16 13:02 (Deltasone) 20 mg BID PO 10/10/16 21:00 10/11/16 08:20 (Levaquin) 750 mg DAILY PO 10/11/16 09:00 10/11/16 08:21 (Cozaar) 100 mg DAILY PO 10/11/16 11:30 10/11/16 12:20 (Hydrodiuril) 25 mg DAILY PO 10/11/16 11:30 10/11/16 12:20 A/P Problem List: (1) Chest pain ICD Code: R07.9 - Chest pain, unspecified Status: Acute (2) Hypokalemia ICD Code: E87.6 - Hypokalemia Status: Resolved (3) Lung nodule ICD Code: R91.1 - Solitary pulmonary nodule Status: Acute (4) COPD with exacerbation ICD Code: J44.1 - Chronic obstructive pulmonary disease with (acute) exacerbation Status: Resolved (5) IMELDA (acute kidney injury) ICD Code: N17.9 - Acute kidney failure, unspecified Status: Acute Assessment and Plan 1. Chest Pain: acute onset of substernal chest pain, pressure-like w/ radiation to shoulders. Initial trop negative, EKG w/ no acute ischemia. Check serial cardiac enzymes, lipid profile, Hgb A1c. Currently chest pain improved. CXR w/ chronic interstitial changes. CTA no PE, mild aneurysmal dilatation of aortic root, ascending aorta and proximal arch, no rupture or dissection, images reviewed by me. Patient is chest pain free. seen by Cardiology. Nuclear scan is negative for ischemia. 10/11 Patient c/o left sided chest pain. check EKG STAT. 2. Unstable Angina: follows w/ Dr. Meng as outpatient, Cardiology consulted by ER physician, recommended Heparin/Nitro gtt and likely cath in am. NPO, IVF, continue Heparin/Nitro, check cardiac enzymes as above. Likely musculoskeletal chest pain. Seen by cardiology. Heparin gtt and Nitroglycerin discontinued. 3. Hypokalemia: K+ 3.1, s/p replacement in ER, will recheck and replace as needed. Replaced and resolved. Continue to monitor BMP. 4. IMELDA: Creatinine 1.24, previously 0.93 on 12/05/06, IVF for hydration, repeat labs in am. 10/10 Creatinine improving and almost back to baseline. DC IV fluids. 5. COPD exacerbation: Seems to be on exacerbation. improving. Continue IV Solumedrol, add Symbicort. Consult pulmonology. 10/11 DC on oral Levaquin, prednisone taper and Symbicort inhaler. 6. Lung Nodule: CTA w/ RUL groundglass nodule 2.4 x 1.3cm, recommendation for repeat CT in 6mo, pt aware of lung nodule in the past. 10/10 Pulmonary consulted - fu lung nodule as an outpatient. 7. DVT Prophylaxis: SCD's. 8. Social work for d/c planning as needed. 9. Lower extremity weakness: PT consulted - patient will need HHC PT. 10. Uncontrolled HTN: Resume patient's home Losartan and HCTZ. Discharge Planning Will possibly DC later or in am if EKG withouth changes and BP improved. Problem Qualifiers (1) Chest pain: John Saha MD Oct 11, 2016 17:31
--- NOTE | 2016-10-12 19:50 | EKG ---
Date Performed: 10/11/2016 Time Performed: 17:40:42 PTAGE: 76 years EKG: Sinus rhythm . ST junctional depression is nonspecific Borderline ECG PREVIOUS TRACING : 10/06/2016 20.34 Compared to prior tracing no significant change DOCTOR: Asia Pete Interpretating Date/Time 10/12/2016 19:49:49
== END 2016-10-11 20:59 | disposition home or self-care (01) | DRG 191 ==
LOC: NEPD 14:26 → NEDA 16:51 → UNDOADMOB 16:51 → INTOOBSV 17:41 → NEDA 17:41 → OBSVTOIN 17:41 → HIMN 10-07 03:00 → N04A 10-07 20:37
PROVIDERS: ADMIT Hospitalist; ATTEND Hospitalist
DX: J44.1 Chronic obstructive pulmonary disease with (acute) exacerbation (principal); N17.9 Acute kidney failure, unspecified; J96.10 Chronic respiratory failure, unspecified whether with hypoxia or hypercapnia; Z99.81 Dependence on supplemental oxygen; R07.89 Other chest pain; I25.10 Atherosclerotic heart disease of native coronary artery without angina pectoris; I08.1 Rheumatic disorders of both mitral and tricuspid valves; I10 Essential (primary) hypertension; F32.9 Major depressive disorder, single episode, unspecified; E78.5 Hyperlipidemia, unspecified; Z79.01 Long term (current) use of anticoagulants; F41.9 Anxiety disorder, unspecified; K21.9 Gastro-esophageal reflux disease without esophagitis; Z87.891 Personal history of nicotine dependence; E87.6 Hypokalemia; R91.1 Solitary pulmonary nodule
CPT/HCPCS: 71010; 71275; 74174; 78452; 80048; 80053; 80061; 82550; 82552; 83036; 83690; 83735; 83880; 84100; 84484; 85025; 85027; 85610; 85730; 87641; 93005; 93017; 94640; 94664; 99291; A9502; J1644; J1956; J2270; J2785; J2920; J2930; J3480; J7030; J7512; Q9967

== ENCOUNTER 2017-05-18 07:41 | Inpatient (IN) | payer MEDICARE, MEDICAID ==
[2017-05-18] VITALS (8 sets, daily range): BP systolic 122–149; BP diastolic 77–94; PULSE 55–77; RESP 16–19; TEMP 98–98.4; O2SAT 94–95
[~2017-05-18] VITALS: Ht 160 cm; Wt 85.4 kg
[~2017-05-18 07:41] MED LIST changes: -AMLO10; +ASPI1TAB56 PO; -FAMO1TAB36; -HYDR-2768; -HYDR-3133; +HYDR25TA5 PO; +LEVA750T9 PO; +LOSA100T PO; +METR-1 PO; +NIFE90TA2 PO; +OXYB5TAB8 PO; +PANT40TA3 PO; +PARO40TA3 PO; +PRED20 PO; -PROZ20CA11; +SYMB160A INH; -VASO10TA8; +ZOCO40TA PO
[2017-05-18] MEDS ORDERED: ONDANSETRON HCL 4 MG/2 ML VIAL IV PUSH PRN (08:45)
[2017-05-18] MEDS ORDERED: ALTEPLASE RECOMBINANT 2 MG VIAL IVF PRN (08:45)
--- NOTE | 2017-05-18 09:37 | PD.CONS ---
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 According to a PET-CT done in March there appears to be a mass in the upper third mid esophagus suspicious for malignancy. Our service has been consulted for EUS with biopsy. Pt reports history of dysphagia for approx 3-4 months, has had to cut her food into very small pieces in order to swallow. States the food often gets stuck and she has to force herself to regurgitate the food back up. Associated odynophagia. Denies any dysphagia with liquids. She thinks she has been losing weight but she is unsure of how much. Denies any abdominal pain, constipation, diarrhea, blood in stool. Pt denies any ETOH or smoking, states she quit a long time ago. Thinks she had a colonoscopy a few years ago but unsure of the findings. Does not think she has ever had an EGD. (Polina Whelan) PFSH Past Medical History COPD HTN Hyperlipidemia Anxiety Non-small cell lung cancer, RUL CAD Urinary incontinence Esophageal mass Dysphagia Past Surgical History Hysterectomy Lung biopsy Colonoscopy (Polina Whelan) Coded Allergies: penicillin G (Unverified Allergy, Severe, RASH, 10/06/16) Social History Denies ETOH Denies smoking Denies illicit drugs (Polina Whelan) Review of Systems Gastrointestinal: COMPLAINS OF: Vomiting, Difficulty Swallowing, Odynophagia, DENIES: Abdominal pain, Black stools, Bloody stools, Constipation, Diarrhea, Nausea, Swelling of Abdomen, Heartburn, Hematemesis (Polina Whelan) GI Exam Physical Examination HEENT: Normocephalic; atraumatic CHEST: Even/unlabored CARDIAC: RRR ABDOMEN: Soft, nondistended, nontender; bowel sounds active EXTREMITIES: No clubbing, cyanosis, or edema. SKIN: Normal; no rash; no jaundice. CTO: No focal deficits; alert and oriented times three. (Polina Whelan) Assessment and Plan Plan Assessment: - Esophageal mass- PET- CT done Apr 07 demonstrates a mass in the upper third mid esophagus suspicious for malignancy. Also a hiatal hernia. Pt reports dysphagia for the past 3-4 months, states has had to cut her food into small pieces and still feels the food gets stuck. Has had to regurgitate food after meals. Associated odynophagia. Denies dysphagia with liquids. She is not sure but does not think she has ever had an EGD. Thinks she has been losing weight, unsure of how much. CA 19-9 112.5 No abdominal imaging in chart - Non-small cell lunger cancer, right upper lung- followed by medical oncology and radiation oncology - Hypokalemia- last labs from 05/11- pt on potassium supplements Plan: EGD with EUS with biopsy tomorrow Obtain consent OK for soft foods from GI perspective- GS has pt NPO for port placement today NPO after MN Further recommendations based on findings of above Pt has been seen and examined by myself and Dr. Capps and this note is written on his behalf (Polina Whelan) Physician Comments Seen and examined Agree with above Continue with current supportive care Monitor labs Plan for an EGD with EUS tomorrow (Jacob Capps MD) Polina Whelan May 18, 2017 09:37 Jacob Capps MD May 18, 2017 20:47
--- NOTE | 2017-05-18 09:51 | PD.CONS ---
cc: Ronan Jack MD; Katlin Dos Santos MD [facility] Service CONSULTATION NOTE FOR SURGICAL ATTENDING, DR. RONAN JACK General Surgery Consult Requested By Dr. Kennedy Reason for Consult Port placement for chemotherapy infusions Primary Care Physician Regan Garsia, History of Present Illness This is a 77 year old female with a past medical history of hypertension, hiatal hernia, anxiety, anemia, CAD, non small cell lung cancer and is now having a GI workup for a possible esophageal mass. The patient is scheduled for an EUS tomorrow with Dr. Delaney. Dr. Kennedy has requested a General Surgery consultation for an Infusport placement for chemotherapy. Review of Systems Constitutional: COMPLAINS OF: Dizziness, DENIES: Fatigue, Change in appetite Endocrine: DENIES: Polydipsia, Polyuria, Polyphagia Eyes: DENIES: Diplopia, Eye inflammation Ears, nose, mouth, throat: DENIES: Hearing loss Respiratory: DENIES: Apneas, Cough Cardiovascular: DENIES: Chest pain Gastrointestinal: DENIES: Abdominal pain, Nausea, Vomiting Genitourinary: DENIES: Urinary frequency Musculoskeletal: DENIES: Joint pain Integumentary: DENIES: Abnormal pigmentation Hematologic/lymphatic: DENIES: Bruising Immunologic/allergic: DENIES: Eczema Neurologic: DENIES: Abnormal gait, Headache Psychiatric: DENIES: Confusion, Mood changes, Depression Past Family Social History Past Medical History Hypertension Hiatal hernia Anxiety Anemia Non small cell lung cancer COPD CAD Past Surgical History RIGHT lung biopsy Hysterectomy Reported Medications Ventolin Zocor Nifedipine Losartan Aspirin Paroxetine Potassium Hydrochlorothiazide Symbicort Protonix Prednisone Ditropan Allergies: Coded Allergies: penicillin G (Unverified Allergy, Severe, RASH, 10/06/16) Active Ordered Medications Current Medications Medications (Trade) Dose Ordered Sig/Dusty Route Start Time Stop Time Status Last Admin Sodium Chloride 1,000 ml @ 42 mls/hr [id number] IV 05/18/17 08:45 (Cathflo Activase Inj) 2 mg UNSCH PRN IVF 05/18/17 08:45 (Heparin Central Flush) 500 units UNSCH IV FLUSH 05/18/17 08:45 (NS Flush) 5 ml UNSCH PRN IVF 05/18/17 08:45 (Heparin Central Flush) 250 units UNSCH PRN IV FLUSH 05/18/17 08:45 (Zofran Inj) 4 mg Q6HR PRN IV PUSH 05/18/17 08:45 Family History Noncontributory Social History Denies tobacco use Denies ETOH use Lives her locally with her cousin. Physical Exam Physical Exam GENERAL: 77 year old female resting in bed in no acute distress. SKIN: Warm and dry. HEAD: Atraumatic. Normocephalic. EYES: Pupils equal and round. No scleral icterus. No injection or drainage. ENT: No nasal bleeding or discharge. Mucous membranes pink and moist. NECK: Trachea midline. CARDIOVASCULAR: Regular rate and rhythm. RESPIRATORY: No accessory muscle use. Clear to auscultation. Breath sounds equal bilaterally. GASTROINTESTINAL: Abdomen soft, non-tender, nondistended. Hepatic and splenic margins not palpable. MUSCULOSKELETAL: Extremities without clubbing, cyanosis, or edema. No obvious deformities. NEUROLOGICAL: Awake and alert. No obvious cranial nerve deficits. Motor grossly within normal limits. Five out of 5 muscle strength in the arms and legs. Normal speech. PSYCHIATRIC: Appropriate mood and affect; insight and judgment normal. Laboratory Laboratory Tests Test 05/18/17 10:53 White Blood Count 4.2 TH/MM3 Red Blood Count 4.24 MIL/MM3 Hemoglobin 10.7 GM/DL Hematocrit 32.7 % Mean Corpuscular Volume 77.2 FL Mean Corpuscular Hemoglobin 25.3 PG Mean Corpuscular Hemoglobin Concent 32.7 % Red Cell Distribution Width 18.5 % Platelet Count 139 TH/MM3 Mean Platelet Volume 8.6 FL Neutrophils (%) (Auto) 63.9 % Lymphocytes (%) (Auto) 19.3 % Monocytes (%) (Auto) 8.3 % Eosinophils (%) (Auto) 7.4 % Basophils (%) (Auto) 1.1 % Neutrophils # (Auto) 2.7 TH/MM3 Lymphocytes # (Auto) 0.8 TH/MM3 Monocytes # (Auto) 0.4 TH/MM3 Eosinophils # (Auto) 0.3 TH/MM3 Basophils # (Auto) 0.0 TH/MM3 CBC Comment DIFF FINAL Differential Comment Prothrombin Time 11.0 SEC Prothromb Time International Ratio 1.1 RATIO Blood Urea Nitrogen 20 MG/DL Creatinine 0.99 MG/DL Random Glucose 74 MG/DL Total Protein 6.9 GM/DL Albumin 3.3 GM/DL Calcium Level 9.5 MG/DL Alkaline Phosphatase 66 U/L Aspartate Amino Transf (AST/SGOT) 25 U/L Alanine Aminotransferase (ALT/SGPT) 18 U/L Total Bilirubin 0.5 MG/DL Sodium Level 136 MEQ/L Potassium Level 2.6 MEQ/L Chloride Level 99 MEQ/L Carbon Dioxide Level 30.2 MEQ/L Anion Gap 7 MEQ/L Estimat Glomerular Filtration Rate 55 ML/MIN Magnesium Level 2.1 MG/DL Assessment and Plan Problem List: (1) Lung cancer ICD Codes: C34.90 - Malignant neoplasm of unspecified part of unspecified bronchus or lung (2) Esophageal mass ICD Codes: K22.9 - Disease of esophagus, unspecified Status: Acute (3) COPD (chronic obstructive pulmonary disease) ICD Codes: J44.9 - Chronic obstructive pulmonary disease, unspecified Status: Chronic (4) Chest pain ICD Codes: R07.9 - Chest pain, unspecified Status: Acute (5) Lung nodule ICD Codes: R91.1 - Solitary pulmonary nodule Status: Chronic (6) IMELDA (acute kidney injury) ICD Codes: N17.9 - Acute kidney failure, unspecified Status: Chronic (7) Hypokalemia ICD Codes: E87.6 - Hypokalemia Status: Chronic (8) COPD with exacerbation ICD Codes: J44.1 - Chronic obstructive pulmonary disease with (acute) exacerbation Status: Chronic Assessment and Plan 77 year old female with non small cell carcinoma; workup in progress for esophageal mass -NPO -Plan for Infusaport placement this afternoon in [place] -Stat INR -Obtain consents -Discussed procedures including risks such as pneumothorax, bleeding and infection -All questions answered -Thank you for this consult; We will continue to follow Discussed Condition With Dr. Marcie Madera Attending Statement NOTE FOR SURGICAL ATTENDING, DR. RONAN JACK Discussed with the patient about [id number] placement She was posted come to the office by Dr. Dos Santos for [id number] but she required inpatient therapy for her declining status Will place [id number] this admission I agree with above assessment and plan. The exam, history, and the medical decision-making described in the above note were completed with the assistance of the mid-level provider. I reviewed and agree with the findings presented. I attest that I had a [id number] encounter with the patient on the same day, and personally performed and documented my assessment and findings in the medical record. The following services were provided during this hospital visit: Chart data review, vital sign assessments/reviewing monitor data Review of consultations notes if present. Medication orders/review and/or management Ordering and/or reviewing lab tests Ordering and/or interpreting/reviewing x-rays and/or diagnostic studies Care of the patient and discussion of the patient with the care team Documentation time To help prompt me to consider important information that might be impacting today's encounter and assessment, information from prior notes written by myself or my colleagues may have been "brought forward/copy and pasted" into today's note. Problem Qualifiers (1) Lung cancer: (2) COPD (chronic obstructive pulmonary disease): Mackenzie Montes/Pickler Helper CHLOE May 18, 2017 09:51 Ronan Jack MD May 18, 2017 17:29
[2017-05-18] MEDS ORDERED: ELIPTA (11:22)
[2017-05-18] MEDS ORDERED: POTA-163 PO (11:22)
[2017-05-18] MEDS ORDERED: VENTAER INH (11:22)
[2017-05-18] MEDS ORDERED: LIDOCAINE HCL 1% PF 5 ML SYRINGE OTHER ONE (12:00)
[2017-05-18] MEDS ORDERED: PROPOFOL 200 MG/20 ML AMP IV ONE (12:00)
[2017-05-18 12:05] LABS: INTERNATIONAL NORMALIZED RATIO 1.1 RATIO
[2017-05-18 12:11] LABS: AUTOMATED NEUTROPHIL # 2.7 TH/MM3 (1.8-7.7); BASOPHIL % 1.1 % (0.0-2.0); EOSINOPHIL # 0.3 TH/MM3 (0-0.4); EOSINOPHIL % 7.4 % (0.0-4.0); HEMATOCRIT 32.7 % (35.0-46.0); HEMOGLOBIN 10.7 GM/DL (11.6-15.3); LYMPH % 19.3 % (9.0-44.0); LYMPHOCYTE # 0.8 TH/MM3 (1.0-4.8); MEAN CELL VOLUME 77.2 FL (80.0-100.0); MEAN CORPUSCULAR HEMOGLOBIN 25.3 PG (27.0-34.0); MEAN CORPUSCULAR HGB CONC 32.7 % (32.0-36.0); MEAN PLATELET VOLUME 8.6 FL (7.0-11.0); MONO % 8.3 % (0.0-8.0); MONOCYTE # 0.4 TH/MM3 (0-0.9); NEUT % 63.9 % (16.0-70.0); PLATELET COUNT 139 TH/MM3 (150-450); RED BLOOD COUNT 4.24 MIL/MM3 (4.00-5.30); RED CELL DISTRIBUTION WIDTH 18.5 % (11.6-17.2); WHITE BLOOD COUNT 4.2 TH/MM3 (4.0-11.0)
[2017-05-18] MEDS: SODIUM CHLOR 0.9% 1000 ML INJ 1,000 ML IV SCH (12:13)
[2017-05-18 12:45] LABS: ALBUMIN 3.3 GM/DL (3.4-5.0); ALKALINE PHOSPHATASE 66 U/L (45-117); ALT (GPT) 18 U/L (10-53); AST (GOT) 25 U/L (15-37); BICARBONATE 30.2 MEQ/L (21.0-32.0); BLOOD UREA NITROGEN 20 MG/DL (7-18); CALCIUM 9.5 MG/DL (8.5-10.1); CHLORIDE 99 MEQ/L (98-107); CREATININE 0.99 MG/DL (0.50-1.00); GLOMERULAR FILTRATION RATE 55 ML/MIN (>89); GLUCOSE,RANDOM 74 MG/DL (74-106); SODIUM (NA) 136 MEQ/L (136-145); TOTAL BILIRUBIN ADULT 0.5 MG/DL (0.2-1.0); TOTAL PROTEIN 6.9 GM/DL (6.4-8.2)
[2017-05-18] MEDS ORDERED: DEXTROSE IV STA ×2 (14:08)
[2017-05-18] MEDS ORDERED: WATE IV STA ×2 (14:08)
[2017-05-18] MEDS ORDERED: MULTIVITAMIN IV STA ×2 (14:08)
[2017-05-18] MEDS ORDERED: RESP: ALBUTEROL 2.5 MG/IPRATROPIUM 0.5 MG NEB (PRN) NEB (14:15)
--- NOTE | 2017-05-18 14:58 | MB ---
cc: Katlin Dos Santos MD DATE: 05/18/2017 ADMISSION DIAGNOSES: 1. Dysphagia. 2. Lung cancer. 3. Suspected esophageal cancer, locally advanced. HISTORY OF PRESENT ILLNESS: Ms. Madera is a 77-year-old woman with hypertension, hiatal hernia, and anxiety. She has underlying COPD, followed by Dr. Getachew Chilel. She has had multiple CT scans of the chest, being followed for a lung nodule and abnormality. Finally, the lung lesions increased in size. CT PET scan on 04/07/2017 demonstrated also a second finding of malignancy in the esophagus. This correlated with her symptoms of dysphagia, which were worsening. In the meantime, her lung lesion was biopsied. The final pathology showed a non-small cell lung cancer, adenocarcinoma histology. The question remains as to whether or not the esophageal cancer is related to the lung lesions versus 2 primaries. The course was complicated by difficulty in transportation. She has a large hiatal hernia. She has had some weight loss. She was seen by Radiation Oncology and simulation was completed. She is pending an appointment with Gastroenterology. The case was discussed with Dr. Capps, who offered consideration for hospitalization and further evaluation given the significant dysphagia she is having. She is admitted today for severe dysphagia and evaluation of the esophageal lesion, which is more symptomatic than the lung lesion that was biopsied positive to be lung cancer. The rest of her review of system is significant for chronic shortness of breath. She has COPD. She notes some swelling at the chest wall. She denies any fevers, chills or night sweats. She has had a progressive weight loss. PAST MEDICAL HISTORY: Hypertension, chronic large hiatal hernia, anxiety, anemia, non-small cell lung cancer, extensive disease, COPD, and coronary artery disease. PAST SURGICAL HISTORY: Right upper lobe biopsy and hysterectomy. FAMILY HISTORY: No family history of cancer. SOCIAL HISTORY: She smoked for several years, quit 10 years ago. She denies any alcohol or illicit drug use. ALLERGIES: PENICILLIN. CURRENT MEDICATIONS: 1. Aspirin. 2. Lorazepam. 3. Hydrochlorothiazide. 4. Lortab. 5. Losartan. 6. Nifedipine. 7. Simvastatin. 8. Ventolin. PHYSICAL EXAMINATION: VITAL SIGNS: Temperature 98.4, heart rate 55, respiratory rate 18, blood pressure 122/78, saturation 94%. GENERAL: Ms. Madera is a well-developed, well-nourished, elderly woman, who looks her stated age. She is kind of ornery and tired, being brought to the wrong place by car service. HEENT: Pupils are round, reactive to light and accommodation. Oropharynx is clear. NECK: Supple. LUNGS: Clear. CARDIOVASCULAR: Reveals mild bradycardia. ABDOMEN: Large and benign. EXTREMITIES: Lower extremities with no edema. NEUROLOGIC: Nonfocal. LABORATORY DATA: Significant for a microcytic anemia, hemoglobin of 10.7, MCV 77.2, platelet count decrease of 139. Potassium is 2.6, replaced intravenously earlier. CA 19.9 is elevated. ASSESSMENT AND PLAN: Ms. Madera is a 77-year-old woman with a long history of hiatal hernia, progressive symptoms of dysphagia and recent diagnosis of lung cancer, appears to be bilateral disease of bronchioalveolar histology. We had a lengthy discussion about her dysphagia and inability to take p.o. She does have difficulty with a potassium being low. It is being replaced intravenously and orally. She is pending endoscopic procedure by Dr. Capps. She needs a diagnostic biopsy to confirm a diagnosis of esophageal cancer. Given that the esophagus lesion is in the mid esophagus, I suspect this is a different histology than the lung. 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 She needs supportive treatment including IV fluid hydration. We are eager to initiate treatment as soon as possible so that she can have alleviation of her dysphagia and inability to get nutrition. Treatment of her lung cancer is considered. Systemic chemotherapy would be necessary. We are trying to coordinate the best systemic treatment in light of possible [address] Getachew Chilel was consulted in light of her severe chronic obstructive pulmonary disease. She has shortness of breath. We will keep her saturation greater than 90%. Albuterol nebs are ordered. General surgery is consulted for port placement. She will need a port for treatment in addition to supportive hydration and total parenteral nutrition if needed until she is able to swallow. Her questions were answered to her satisfaction. MD ARUN Elias/FERNIE , 02:22 PM , 02:57 PM
[2017-05-18] MEDS ORDERED: POTASSIUM CHLORIDE INJ 30 MEQ in DEXT 5%-NACL 0.9% 1000 ML INJ 1,000 ML IV SCH (15:00)
[2017-05-18] MEDS ORDERED: VANCOMYCIN HCL 1000 MG VIAL ONE (16:20)
[2017-05-18] MEDS ORDERED: LIDOCAINE 1%/EPINEPHrine 1:100,000 SOLN 30 ML VIAL ONE (16:21)
[2017-05-18] MEDS ORDERED: HEPARIN SODIUM - IV 10,000 UNITS/10 ML VIAL ONE (16:21)
[2017-05-18] MEDS ORDERED: BUPIVACAINE/EPINEPHRINE 0.5% PF 10 ML VIAL ONE (16:21)
[2017-05-18] MEDS ORDERED: SODIUM BICARBONATE 8.4% INJ 0 ML ONE (16:21)
[2017-05-18] MEDS ORDERED: ceFAZolin INJ 1,000 MG VIAL ONE (16:21)
--- NOTE | 2017-05-18 18:34 | HHI.PR ---
cc: Ronan Jack MD Immediate Post Op Note Procedure Date: May 18, 2017 Pre Op Diagnosis: (1) Lung cancer (2) Esophageal mass (3) Lung nodule (4) Poor intravenous access Post Op Diagnosis: (1) Lung cancer (2) Esophageal mass (3) Lung nodule (4) Poor intravenous access Surgeon: Ronan Jack Facilities Officer(s): See operating room records Procedure: Attempted left subclavian central venous access port unsuccessful Placement of right subclavian access port under fluoroscopic guidance Findings: Occluded innominate vein making placement of left subclavian central venous access port impossible Complications: None Anesthesia: MAC Drains: None IVF Patient to: PACU Patient Condition: Good Implant/Devices: SEE IMPLANT LOG (if applicable) Date/Time of Procedure: SEE SURGICAL CARE RECORD Ronan Jack MD May 18, 2017 18:34
[2017-05-18] MEDS ORDERED: DO NOT ADM ANY ANTICOAGULANT DRUGS PRN (18:36)
--- NOTE | 2017-05-18 18:44 | MB ---
cc: Getachew Chilel MD DATE: 05/18/2017 REASON FOR CONSULTATION: A patient with known lung cancer, severe COPD. HISTORY OF PRESENT ILLNESS: Mrs. Madera is a 77-year-old female with a recent diagnosis of adenocarcinoma of the lung. The patient has been simulated for radiation therapy to start radiation therapy soon. She is followed by Dr. Dos Santos from an oncology standpoint. The patient had developed dysphagia which is progressive and severe, admitted because of her severe dysphagia, undergoing endoscopy today in an attempt to obtain tissue diagnosis and to assess if the lung and esophagus lesion are related or these are 2 different primaries. The patient does have less than half a block dyspnea exertion, occasional dry cough. No fever, no chill, no hemoptysis. PAST MEDICAL HISTORY: Lung cancer as outlined above, COPD, coronary artery disease, hiatal hernia, hypertension, chronic anemia and anxiety. FAMILY HISTORY; Noncontributory. REVIEW OF SYSTEMS: A 12-point review of systems as per HPI and past history, otherwise negative. MEDICATIONS: At home include: 1. Losartan. 2. Nifedipine. 3. Simvastatin. 4. Albuterol as needed. 5. Aspirin. 6. Lorazepam. 7. Hydrochlorothiazide. SOCIAL HISTORY: Long smoking history, stopped 10 years ago. Does not drink alcohol, does not use drugs. PHYSICAL EXAMINATION: GENERAL: The patient is alert. VITAL SIGNS: Temperature 98, pulse 60, respirations 18, blood pressure 124/74, oxygen saturation 94% on room air. HEENT: Unremarkable. Eyes without icterus. NECK: Without adenopathy, thyroid enlargement. CHEST: Few rhonchi at bases. CARDIAC: PMI not appreciated. S1, S2 audible. No murmur, no rub. ABDOMEN: Lax, bowel sounds audible. EXTREMITIES: No clubbing, cyanosis or edema. LABORATORY DATA: White count 4.2; hemoglobin 10.7; platelets 139,000. Sodium 136, potassium 2.6, BUN 20, creatinine 0.9. INR 1.1. IMPRESSION: 1. Adenocarcinoma of the lung, for radiation therapy. 2. Dysphagia, question esophageal cancer. 3. Chronic obstructive pulmonary disease. 4. Chronic anemia. 5. Anxiety. PLAN: The patient will be maintained on bronchodilator therapy via nebulization. She is to conclude radiation treatment and review of biopsy reports from upper endoscopy. She is followed by Dr. Dos Santos from an oncologic standpoint. I do thank you for asking me to partake in Mrs. Madera's care. MD SKYLAR Farris/FERNIE , 06:21 PM , 06:43 PM
[2017-05-18] MEDS ORDERED: *ENALAPRILAT 1.25 MG/ML VIAL PERIprocedural Use ONLY ONE (19:09)
--- NOTE | 2017-05-18 19:16 | MP ---
cc: Ronan Jack MD,Katlin Moore MD DATE OF OPERATION: 05/18/2017 PREOPERATIVE DIAGNOSES: 1. Esophageal mass suspicious for advanced esophageal cancer. 2. Lung cancer. POSTOPERATIVE DIAGNOSES: 1. Esophageal mass suspicious for advanced esophageal cancer. 2. Lung cancer. 3. 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 ANESTHESIA: TIVA SURGEON: Ronan Jack MD PROCEDURE PERFORMED: 1. Attempted placement of left subclavian Infusaport, unable to be placed secondary to an occlusion of the innominate vein. 2. Placement of right-sided Infusaport under fluoroscopic guidance. INDICATION FOR PROCEDURE: This is a pleasant female who was found to have the above-mentioned pathology. Dr. Dos Santos asked me to place Infusaport. Intraoperatively, I was unable to place the left subclavian. I could cannulate the vein and it would keep going up into the left neck. We did get it to the midline, but it was unable to be advanced and would turn about on itself. Apparently, this is partially obstructed or occluded from possibly her tumor. DESCRIPTION OF PROCEDURE: The patient taken to the operating room and placed in supine position. After anesthesia, her left and right chest and infraclavicular area were prepped with Betadine. She was given Ancef. We first directed our attention to the left subclavian area. She has had some trauma to the right shoulder. I thought this would be easiest access. We were able to cannulate subclavian vein, but multiple attempts, the wire just keeps going up in the neck. On a couple of attempts, I got it to partially go into the innominate vein, but I could not thread it any further. I did not feel it was safe. It appears to be occluded or compressed possibly from her tumor. This site was then abandoned. We then directed our attention to the right side where she had previous trauma to her shoulder, and fortunately, I am able to access the subclavian vein on the first stick. We advanced the guidewire under fluoroscopic guidance to the superior vena cava. The catheter was cut to size to about 15 cm, so it lays in the superior vena cava. We placed, over the guidewire, the introducer and dilator quite easily under fluoroscopic guidance. The guidewire and the dilator were removed. The catheter was then threaded through the introducer. The introducer was then removed. The catheter was cut to size at 15 cm. It snapped into place into the port site of the PowerPort. Aspirates blood quite easily and it is flushed with heparinized saline solution. We secured it to the deep layer with a 3-0 Vicryl and the deep layers closed with 3-0 Vicryl, skin closed with a 4-0 Vicryl. Steri-Strips were applied. Sterile bandage applied. Stat portable chest x-ray is pending at the time of this dictation. MD SYD Blackwell/GIGI , 06:40 PM , 07:16 PM
[2017-05-18] MEDS ORDERED: *LABETALOL HCL 100 MG/20 ML VIAL PERIprocedural Use ONLY ONE (19:25)
--- NOTE | 2017-05-18 20:01 | RADRPT ---
EXAM DATE/TIME: 05/18/2017 18:48 [facility] COMPARISON: CTA THORACIC ABDOMINAL AORTA W 3D RECON, October 06, 2016, 15:51. CHEST SINGLE AP, October 08, 2016, 1 1:03. INDICATIONS : Evaluate right side infus a port placement. MEDICAL HISTORY : Chronic obstructive pulmonary disease. SURGICAL HISTORY : None. ENCOUNTER: Initial ACUITY: 1 day PAIN SCORE: 0/10 LOCATION: Right chest FINDINGS: There is a CT compatible Jxbhes-p-Jffp seen in the right chest entering through the right subclavian approach with the tip overlying the SVC. A pneumothorax is not seen. There is increased density seen at the right upper chest. Left lung is clear. The heart size is normal. CONCLUSION: 1. Right-sided Stnuxc-l-Tdyg appears well placed. 2. Persistent increased density in the right upper lung. Rajinder Chang MD on May 18, 2017 at 19:58 Board Certified Radiologist. This report was verified electronically.
[2017-05-18] MEDS: POTASSIUM CHLOR 40 MEQ PREMIX 100 ML IV SCH (21:04)
[2017-05-18] MEDS: OXYBUTYNIN CHLORIDE 5 MG TAB PO SCH (21:15)
[2017-05-18] MEDS: BUDESONIDE-FORMOTEROL 160/4.5 MCG INHALER INH SCH (21:29)
[2017-05-18] MEDS ORDERED: MORPHINE SULFATE 4 MG/ML INJ IV ONE (23:45)
[2017-05-19] VITALS (8 sets, daily range): BP systolic 108–150; BP diastolic 58–96; PULSE 68–93; RESP 16–20; TEMP 97.9–98.6; O2SAT 93–98
[2017-05-19] MEDS: POTASSIUM CHLOR 40 MEQ PREMIX 100 ML IV SCH (01:55)
[2017-05-19] MEDS ORDERED: MORPHINE SULFATE 4 MG/ML INJ IV PRN (04:00)
[2017-05-19] MEDS: SODIUM CHLOR 0.9% 1000 ML INJ 1,000 ML IV SCH ×2 (04:11→20:20)
[2017-05-19 07:26] LABS: AUTOMATED NEUTROPHIL # 2.2 TH/MM3 (1.8-7.7); BASOPHIL % 1.2 % (0.0-2.0); EOSINOPHIL # 0.2 TH/MM3 (0-0.4); EOSINOPHIL % 5.3 % (0.0-4.0); HEMATOCRIT 28.2 % (35.0-46.0); HEMOGLOBIN 9.4 GM/DL (11.6-15.3); LYMPH % 24.1 % (9.0-44.0); LYMPHOCYTE # 0.9 TH/MM3 (1.0-4.8); MEAN CELL VOLUME 78.1 FL (80.0-100.0); MEAN CORPUSCULAR HEMOGLOBIN 25.9 PG (27.0-34.0); MEAN CORPUSCULAR HGB CONC 33.2 % (32.0-36.0); MEAN PLATELET VOLUME 8.2 FL (7.0-11.0); MONO % 10.1 % (0.0-8.0); MONOCYTE # 0.4 TH/MM3 (0-0.9); NEUT % 59.3 % (16.0-70.0); PLATELET COUNT 120 TH/MM3 (150-450); RED BLOOD COUNT 3.61 MIL/MM3 (4.00-5.30); WHITE BLOOD COUNT 3.7 TH/MM3 (4.0-11.0)
[2017-05-19 08:03] LABS: BICARBONATE 30.9 MEQ/L (21.0-32.0); CALCIUM 8.8 MG/DL (8.5-10.1); CREATININE 0.85 MG/DL (0.50-1.00)
--- NOTE | 2017-05-19 08:40 | PD.ONC.PN ---
Subjective Subjective Remarks Afebrile overnight. patient resting in chair next to bed. she has pain with swallowing, some pain at port site and overall malaise. she didn't sleep well last night. had port placement yesterday evening. Objective Data Date Time Temp Pulse Resp B/P (MAP) Pulse Ox O2 Delivery O2 Flow Rate FiO2 05/19/17 04:02 98.4 68 20 146/96 (113) 93 05/19/17 00:20 20 05/18/17 23:33 98.0 19 147/94 (111) 95 05/18/17 23:00 70 05/18/17 22:00 68 05/18/17 21:28 71 05/18/17 20:06 98.0 71 16 149/89 (109) 95 05/18/17 19:30 97.5 72 20 161/79 (106) 93 Room Air 05/18/17 19:15 71 20 173/96 (121) 95 Room Air 05/18/17 19:00 76 20 188/86 (120) 93 Room Air 05/18/17 18:41 97.5 76 20 186/89 (121) 94 Room Air 05/18/17 16:10 77 05/18/17 12:30 98.2 68 18 128/77 (94) 95 05/18/17 12:30 75 05/18/17 09:30 98.4 55 18 122/78 (93) 94 05/19/17 05/19/17 05/19/17 07:00 15:00 23:00 Intake Total 240 ml Balance 240 ml Result Diagram: 05/19/17 0645 05/19/17 0645 Laboratory Results Laboratory Tests Test 05/18/17 10:53 05/19/17 06:45 White Blood Count 4.2 TH/MM3 3.7 TH/MM3 Red Blood Count 4.24 MIL/MM3 3.61 MIL/MM3 Hemoglobin 10.7 GM/DL 9.4 GM/DL Hematocrit 32.7 % 28.2 % Mean Corpuscular Volume 77.2 FL 78.1 FL Mean Corpuscular Hemoglobin 25.3 PG 25.9 PG Mean Corpuscular Hemoglobin Concent 32.7 % 33.2 % Red Cell Distribution Width 18.5 % 18.0 % Platelet Count 139 TH/MM3 120 TH/MM3 Mean Platelet Volume 8.6 FL 8.2 FL Neutrophils (%) (Auto) 63.9 % 59.3 % Lymphocytes (%) (Auto) 19.3 % 24.1 % Monocytes (%) (Auto) 8.3 % 10.1 % Eosinophils (%) (Auto) 7.4 % 5.3 % Basophils (%) (Auto) 1.1 % 1.2 % Neutrophils # (Auto) 2.7 TH/MM3 2.2 TH/MM3 Lymphocytes # (Auto) 0.8 TH/MM3 0.9 TH/MM3 Monocytes # (Auto) 0.4 TH/MM3 0.4 TH/MM3 Eosinophils # (Auto) 0.3 TH/MM3 0.2 TH/MM3 Basophils # (Auto) 0.0 TH/MM3 0.0 TH/MM3 CBC Comment DIFF FINAL DIFF FINAL Differential Comment Prothrombin Time 11.0 SEC Prothromb Time International Ratio 1.1 RATIO Blood Urea Nitrogen 20 MG/DL 14 MG/DL Creatinine 0.99 MG/DL 0.85 MG/DL Random Glucose 74 MG/DL 62 MG/DL Total Protein 6.9 GM/DL Albumin 3.3 GM/DL Calcium Level 9.5 MG/DL 8.8 MG/DL Alkaline Phosphatase 66 U/L Aspartate Amino Transf (AST/SGOT) 25 U/L Alanine Aminotransferase (ALT/SGPT) 18 U/L Total Bilirubin 0.5 MG/DL Sodium Level 136 MEQ/L 142 MEQ/L Potassium Level 2.6 MEQ/L 4.0 MEQ/L Chloride Level 99 MEQ/L 108 MEQ/L Carbon Dioxide Level 30.2 MEQ/L 30.9 MEQ/L Anion Gap 7 MEQ/L 3 MEQ/L Estimat Glomerular Filtration Rate 55 ML/MIN 65 ML/MIN Magnesium Level 2.1 MG/DL Administered Medications Medications (Trade) Dose Ordered Sig/Dusty Route PRN Reason Start Time Stop Time Status Last Admin Dose Admin Sodium Chloride 1,000 ml @ 42 mls/hr [id number] IV 05/18/17 08:45 05/19/17 04:11 Budesonide/ Formoterol Fumarate (Symbicort 160-4.5 Mcg Inh) 2 puff Q12HR INH 05/18/17 21:00 05/18/17 21:29 Oxybutynin Chloride (Ditropan) 5 mg Q12HR PO 05/18/17 21:00 05/18/17 21:15 Objective Remarks GENERAL: Elderly female, sitting up in chair next to bed. she appears comfortable. SKIN: Warm and dry. HEAD: Normocephalic. EYES: no injection or drainage. NECK: Supple, trachea midline. CARDIOVASCULAR: Regular rate and rhythm RESPIRATORY: scattered rhonchi. GASTROINTESTINAL: Abdomen soft, mildly tender in epigastrium. non-distended. EXTREMITIES: No cyanosis NEUROLOGICAL: awake and alert. normal speech. moving extremities. Assessment/Plan Problem List: (1) Esophageal mass ICD Codes: K22.9 - Disease of esophagus, unspecified Status: Acute Plan: ++PET avid lesion in esophagus --unclear if this is related to lung lesion. --plan for EUS to05/19 --s/p port placement. (2) Lung cancer ICD Codes: C34.90 - Malignant neoplasm of unspecified part of unspecified bronchus or lung Plan: -- lung lesion pathology showed a non-small cell lung cancer, adenocarcinoma histology. -- The question remains as to whether or not the esophageal cancer is related to the lung lesions versus 2 primaries. --s/p XRT simulation, awaiting start of radiation. (3) COPD with exacerbation ICD Codes: J44.1 - Chronic obstructive pulmonary disease with (acute) exacerbation Status: Chronic Plan: home medications resumed, + PRN duonebs --pulmonology consulted --goal to keep saturation>90% (4) HTN (hypertension) ICD Codes: I10 - Essential (primary) hypertension Plan: --home medications resumed. Assessment 77y/o female with lung cancer, now with dysphagia and concern for esophageal cancer. h/o hypertension, hiatal hernia, anxiety, COPD Plan 1. proceed with EUS today 2. plan for discharge tomorrow if she remains stable. Attending Statement The exam, history, and the medical decision-making described in the above note were completed with the assistance of the mid-level provider. I reviewed and agree with the findings presented. I attest that I had a [id number]-[id number] encounter with the patient on the same day, and personally performed and documented my assessment and findings in the medical record. Sore from port attempt and from port side. Trying different things she can swallow. Consult w/ grades 9 12 tutor. Coordinate DC tomorrow, will need assistance with transportation. FU in clinic next week to review biopsy results. Problem Qualifiers (1) Lung cancer: Jenny Negron May 19, 2017 08:40 Katlin Dos Santos MD May 19, 2017 14:52
[2017-05-19] MEDS: PRAVASTATIN SOD 20 MG TAB PO SCH (09:47)
[2017-05-19] MEDS: PARoxetine HCL 20 MG TAB PO SCH (09:48)
[2017-05-19] MEDS: NIFEdipine 90 MG SUSTAINED RELEASE TAB PO SCH (09:48)
[2017-05-19] MEDS: OXYBUTYNIN CHLORIDE 5 MG TAB PO SCH ×2 (09:48→20:21)
[2017-05-19] MEDS: PANTOPRAZOLE SOD 40 MG DELAYED RELEASE TAB PO SCH (09:48)
[2017-05-19] MEDS: HYDROCHLOROTHIAZIDE 25 MG TAB PO SCH (09:48)
[2017-05-19] MEDS: BUDESONIDE-FORMOTEROL 160/4.5 MCG INHALER INH SCH ×2 (09:49→12:35)
[2017-05-19] MEDS: LOSARTAN 50 MG TAB PO SCH (09:49)
[2017-05-19] MEDS ORDERED: PROPOFOL 200 MG/20 ML AMP IV ONE (12:00)
[2017-05-19] MEDS ORDERED: LIDOCAINE HCL 1% PF 5 ML SYRINGE OTHER ONE (12:00)
--- NOTE | 2017-05-19 13:24 | HHI.PR ---
cc: Ronan Oliveira MD Subjective Subjective Notes DAILY PROGRESS NOTE FOR SURGICAL ATTENDING, DR. RONAN OLIVEIRA Working on her word puzzle book Katie Objective Vitals/I&O Vital Signs Date Time Temp Pulse Resp B/P (MAP) Pulse Ox O2 Delivery O2 Flow Rate FiO2 05/19/17 07:00 97.9 92 18 108/58 (75) 97 05/18/17 19:30 Room Air Labs Laboratory Tests Test 05/19/17 06:45 White Blood Count 3.7 Red Blood Count 3.61 Hemoglobin 9.4 Hematocrit 28.2 Mean Corpuscular Volume 78.1 Mean Corpuscular Hemoglobin 25.9 Mean Corpuscular Hemoglobin Concent 33.2 Red Cell Distribution Width 18.0 Platelet Count 120 Mean Platelet Volume 8.2 Neutrophils (%) (Auto) 59.3 Lymphocytes (%) (Auto) 24.1 Monocytes (%) (Auto) 10.1 Eosinophils (%) (Auto) 5.3 Basophils (%) (Auto) 1.2 Neutrophils # (Auto) 2.2 Lymphocytes # (Auto) 0.9 Monocytes # (Auto) 0.4 Eosinophils # (Auto) 0.2 Basophils # (Auto) 0.0 CBC Comment DIFF FINAL Differential Comment Blood Urea Nitrogen 14 Creatinine 0.85 Random Glucose 62 Calcium Level 8.8 Sodium Level 142 Potassium Level 4.0 Chloride Level 108 Carbon Dioxide Level 30.9 Anion Gap 3 Estimat Glomerular Filtration Rate 65 Radiology Last Impressions Chest X-Ray 05/18/17 0000 Signed Impressions: Service Date/Time: April 18:48 - CONCLUSION: 1. Right- sided Lxunwo-u-Jtba appears well placed. 2. Persistent increased density in the right upper lung. Rajinder Chang MD Cardiovascular: Regular Lungs: Clear Abdomen: Non-distended, Non-tender Extremities: Other Narrative Exam RIGHT chest port placed--- dressing in place; mild bruising noted A/P Problem List: (1) Lung cancer ICD Codes: C34.90 - Malignant neoplasm of unspecified part of unspecified bronchus or lung (2) Esophageal mass ICD Codes: K22.9 - Disease of esophagus, unspecified Status: Acute (3) COPD (chronic obstructive pulmonary disease) ICD Codes: J44.9 - Chronic obstructive pulmonary disease, unspecified Status: Chronic (4) Chest pain ICD Codes: R07.9 - Chest pain, unspecified Status: Acute (5) Lung nodule ICD Codes: R91.1 - Solitary pulmonary nodule Status: Chronic (6) IMELDA (acute kidney injury) ICD Codes: N17.9 - Acute kidney failure, unspecified Status: Chronic (7) Hypokalemia ICD Codes: E87.6 - Hypokalemia Status: Chronic (8) COPD with exacerbation ICD Codes: J44.1 - Chronic obstructive pulmonary disease with (acute) exacerbation Status: Chronic Assessment and Plan 77 year old female with lung cancer; workup in progress about esophageal mass; POD1 infusaport placement -Okay to use Port -Await EUS -Diet per GI -General Surgery will sign off; please call if needed Attending Statement NOTE FOR SURGICAL ATTENDING, DR. RONAN OLIVEIRA I agree with above assessment and plan. The exam, history, and the medical decision-making described in the above note were completed with the assistance of the mid-level provider. I reviewed and agree with the findings presented. I attest that I had a [id number] encounter with the patient on the same day, and personally performed and documented my assessment and findings in the medical record. The following services were provided during this hospital visit: Chart data review, vital sign assessments/reviewing monitor data Review of consultations notes if present. Medication orders/review and/or management Ordering and/or reviewing lab tests Ordering and/or interpreting/reviewing x-rays and/or diagnostic studies Care of the patient and discussion of the patient with the care team Documentation time To help prompt me to consider important information that might be impacting today's encounter and assessment, information from prior notes written by myself or my colleagues may have been "brought forward/copy and pasted" into today's note. Problem Qualifiers (1) Lung cancer: (2) COPD (chronic obstructive pulmonary disease): Mackenzie Montes/Chest Painting Leader EXPLOSIVES ENGINEER May 19, 2017 13:23 Ronan Oliveira MD May 19, 2017 18:34
[2017-05-19] MEDS ORDERED: DO NOT ADM ANY ANTICOAGULANT DRUGS PRN (17:09)
[2017-05-19] MEDS ORDERED: *ONDANSETRON 4 MG VIAL PERIprocedural Use ONLY ONE (17:23)
--- NOTE | 2017-05-19 19:20 | HHI.PR ---
Subjective Remarks alert no sob up in bed endoscopy and biopsy done Objective GENERAL: SKIN: Warm and dry. HEAD: Atraumatic. Normocephalic. EYES: Pupils equal and round. No scleral icterus. No injection or drainage. ENT: No nasal bleeding or discharge. Mucous membranes pink and moist. NECK: Trachea midline. No JVD. CARDIOVASCULAR: Regular rate and rhythm. RESPIRATORY: No accessory muscle use. Clear to auscultation. Breath sounds equal bilaterally. GASTROINTESTINAL: Abdomen soft, non-tender, nondistended. Hepatic and splenic margins not palpable. MUSCULOSKELETAL: Extremities without clubbing, cyanosis, or edema. No obvious deformities. NEUROLOGICAL: Awake and alert. No obvious cranial nerve deficits. Motor grossly within normal limits. Five out of 5 muscle strength in the arms and legs. Normal speech. PSYCHIATRIC: Appropriate mood and affect; insight and judgment normal. Vital Signs Date Time Temp Pulse Resp B/P (MAP) Pulse Ox O2 Delivery O2 Flow Rate FiO2 05/19/17 18:10 98.6 77 16 150/90 (110) 98 05/19/17 17:45 97.5 85 20 150/90 (110) 96 Nasal Cannula 2 05/19/17 17:30 85 20 165/95 (118) 96 Nasal Cannula 2 05/19/17 17:10 97.5 86 20 157/81 (106) 95 Nasal Cannula 2 05/19/17 15:00 72 05/19/17 12:00 98.0 93 20 131/90 (104) 97 05/19/17 11:00 98.0 93 20 131/90 (104) 97 05/19/17 07:00 97.9 92 18 108/58 (75) 97 05/19/17 07:00 74 05/19/17 04:02 98.4 68 20 146/96 (113) 93 05/19/17 00:20 20 05/18/17 23:33 98.0 19 147/94 (111) 95 05/18/17 23:00 70 05/18/17 22:00 68 05/18/17 21:28 71 05/18/17 20:06 98.0 71 16 149/89 (109) 95 05/18/17 19:30 97.5 72 20 161/79 (106) 93 Room Air I/O 05/18/17 05/18/17 05/18/17 05/19/1730/18 3/30/18 07:00 15:00 23:00 07:00 15:00 23:00 Intake Total 800 ml 240 ml 600 ml Output Total 25 ml Balance 775 ml 240 ml 600 ml Intake Oral 240 ml 0 ml Other 800 ml 600 ml Output Estimated Blood Loss 25 ml # Voids 3 1 Result Diagram: 05/19/17 0645 05/19/17 0645 Assessment and Plan Assessment and Plan impression lung CA COPD ? OESOPHAGEAL CA PLAN BRONCHODILATOR THERAPY CHECK PATH Getachew Chilel MD May 19, 2017 19:20
--- NOTE | 2017-05-19 20:32 | PD.PROCEDR ---
GI Procedure PROCEDURE PERFORMED EGD with biopsy followed by a endoscopic ultrasound INDICATION FOR PROCEDURE Esophageal mass PROCEDURE: The procedure, risks and benefits were discussed with Patient/POA and informed consent was obtained. Anesthesia sedated Patient with Diprivan. Patient was placed in the left lateral decubitus position. EGD: The Pentax videoscope was introduced through the oropharynx and advanced to the second portion of the duodenum under direct visualization. Retroflexion was performed in the stomach. FINDINGS: The esophagus there was a distal esophageal mass that was circumferential and was about 6 cm in length extending from the mid esophagus down to the GE junction this was very friable it was constricting the lumen a pill or tablet was noted to be above the stricture but I was able to traverse it with ease with the scope biopsies were taken for further evaluation The stomach there was a large hiatal hernia otherwise the gastric mucosa was unremarkable The duodenum this was unremarkable EUS: The Pentax videoscope was introduced through the oropharynx and advanced to the second portion of the duodenum . FINDINGS: The esophageal mass had extended beyond the adventitia and possibly the surrounding structure this will probably be a T4 a N0 ESTIMATED BLOOD LOSS: About 50 cc of blood from the friable mass SPECIMENS REMOVED: Esophageal biopsies COMPLICATIONS: None IMPRESSION: Probable esophageal cancer PLAN: Await biopsies Continue with current supportive care Jacob Capps MD May 19, 2017 20:32
[2017-05-19] MEDS ORDERED: ACETAMINOPHEN/HYDROcodone 325 MG/7.5 MG TAB PO PRN (22:15)
[2017-05-20] VITALS (26 sets, daily range): BP systolic 115–140; BP diastolic 78–94; PULSE 62–92; RESP 16–20; TEMP 97.7–98.3; O2SAT 94–99
[2017-05-20 07:11] LABS: BASOPHIL % 1.2 % (0.0-2.0); EOSINOPHIL # 0.2 TH/MM3 (0-0.4); EOSINOPHIL % 6.6 % (0.0-4.0); HEMATOCRIT 30.4 % (35.0-46.0); HEMOGLOBIN 9.8 GM/DL (11.6-15.3); LYMPH % 25.1 % (9.0-44.0); LYMPHOCYTE # 0.9 TH/MM3 (1.0-4.8); MEAN CORPUSCULAR HEMOGLOBIN 25.4 PG (27.0-34.0); MEAN CORPUSCULAR HGB CONC 32.2 % (32.0-36.0); MEAN PLATELET VOLUME 8.3 FL (7.0-11.0); MONO % 9.6 % (0.0-8.0); MONOCYTE # 0.3 TH/MM3 (0-0.9); NEUT % 57.5 % (16.0-70.0); PLATELET COUNT 128 TH/MM3 (150-450); RED BLOOD COUNT 3.85 MIL/MM3 (4.00-5.30); RED CELL DISTRIBUTION WIDTH 18.2 % (11.6-17.2); WHITE BLOOD COUNT 3.5 TH/MM3 (4.0-11.0)
[2017-05-20 07:18] LABS: BICARBONATE 29.8 MEQ/L (21.0-32.0); CREATININE 0.97 MG/DL (0.50-1.00)
--- NOTE | 2017-05-20 08:56 | PD.ONC.PN ---
Subjective Subjective Remarks Afebrile overnight. Patient resting in bed. she was placed on O2 overnight, but her O2 saturations improved this AM. she is tolerating a soft diet. Objective Data Date Time Temp Pulse Resp B/P (MAP) Pulse Ox O2 Delivery O2 Flow Rate FiO2 05/20/17 08:17 97.7 62 18 118/80 (93) 95 05/20/17 07:00 63 05/20/17 05:39 97.9 68 16 115/80 (92) 98 05/20/17 04:05 63 05/20/17 00:33 98.3 69 20 120/82 (95) 94 05/20/17 00:10 70 05/19/17 20:10 98.6 84 16 130/87 (101) 96 05/19/17 20:03 81 05/19/17 18:10 98.6 77 16 150/90 (110) 98 05/19/17 17:45 97.5 85 20 150/90 (110) 96 Nasal Cannula 2 05/19/17 17:30 85 20 165/95 (118) 96 Nasal Cannula 2 05/19/17 17:10 97.5 86 20 157/81 (106) 95 Nasal Cannula 2 05/19/17 15:00 72 05/19/17 12:00 98.0 93 20 131/90 (104) 97 05/19/17 11:00 98.0 93 20 131/90 (104) 97 05/20/17 05/20/17 05/20/17 07:00 15:00 23:00 Intake Total 420 ml Balance 420 ml Result Diagram: 05/20/17 0535 05/20/17 0535 Laboratory Results Laboratory Tests Test 05/20/17 05:35 White Blood Count 3.5 TH/MM3 Red Blood Count 3.85 MIL/MM3 Hemoglobin 9.8 GM/DL Hematocrit 30.4 % Mean Corpuscular Volume 79.0 FL Mean Corpuscular Hemoglobin 25.4 PG Mean Corpuscular Hemoglobin Concent 32.2 % Red Cell Distribution Width 18.2 % Platelet Count 128 TH/MM3 Mean Platelet Volume 8.3 FL Neutrophils (%) (Auto) 57.5 % Lymphocytes (%) (Auto) 25.1 % Monocytes (%) (Auto) 9.6 % Eosinophils (%) (Auto) 6.6 % Basophils (%) (Auto) 1.2 % Neutrophils # (Auto) 2.0 TH/MM3 Lymphocytes # (Auto) 0.9 TH/MM3 Monocytes # (Auto) 0.3 TH/MM3 Eosinophils # (Auto) 0.2 TH/MM3 Basophils # (Auto) 0.0 TH/MM3 CBC Comment DIFF FINAL Differential Comment Blood Urea Nitrogen 15 MG/DL Creatinine 0.97 MG/DL Random Glucose 96 MG/DL Calcium Level 9.0 MG/DL Sodium Level 142 MEQ/L Potassium Level 3.3 MEQ/L Chloride Level 107 MEQ/L Carbon Dioxide Level 29.8 MEQ/L Anion Gap 5 MEQ/L Estimat Glomerular Filtration Rate 56 ML/MIN Administered Medications Medications (Trade) Dose Ordered Sig/Dusty Route PRN Reason Start Time Stop Time Status Last Admin Dose Admin Sodium Chloride 1,000 ml @ 42 mls/hr [id number] IV 05/18/17 08:45 05/19/17 20:20 Pravastatin Sodium (Pravachol) 20 mg DAILY PO 05/19/17 09:00 05/19/17 09:47 Nifedipine (Procardia Xl) 90 mg DAILY PO 05/19/17 09:00 05/19/17 09:48 Losartan Potassium (Cozaar) 100 mg DAILY PO 05/19/17 09:00 05/19/17 09:49 Paroxetine HCl (Paxil) 40 mg DAILY PO 05/19/17 09:00 05/19/17 09:48 Hydrochlorothiazide (Hydrodiuril) 25 mg DAILY PO 05/19/17 09:00 05/19/17 09:48 Budesonide/ Formoterol Fumarate (Symbicort 160-4.5 Mcg Inh) 2 puff Q12HR INH 05/18/17 21:00 05/19/17 09:49 Pantoprazole Sodium (Protonix) 40 mg DAILY PO 05/19/17 09:00 05/19/17 09:48 Oxybutynin Chloride (Ditropan) 5 mg Q12HR PO 05/18/17 21:00 05/19/17 20:21 Acetaminophen/ Hydrocodone Bitart (Clayton 7.5-325 Mg) 1 tab Q6H PRN PO PAIN SCALE 1-10 05/19/17 22:15 05/19/17 22:10 Objective Remarks GENERAL: Elderly female, sitting up in bed eating my crackers. SKIN: Warm and dry. HEAD: Normocephalic. EYES: No injection or drainage. NECK: Supple, trachea midline. CARDIOVASCULAR: Regular rate and rhythm RESPIRATORY: scattered rhonchi GASTROINTESTINAL: Abdomen soft, non-tender, nondistended. EXTREMITIES: No cyanosis NEUROLOGICAL: No obvious focal deficit. Awake, alert, and oriented x3. Assessment/Plan Problem List: (1) Esophageal mass ICD Codes: K22.9 - Disease of esophagus, unspecified Status: Acute Plan: ++PET avid lesion in esophagus --unclear if this is related to lung lesion. --s/p EGD with biopsy on 05/19 --s/p port placement. (2) Lung cancer ICD Codes: C34.90 - Malignant neoplasm of unspecified part of unspecified bronchus or lung Plan: -- lung lesion pathology showed a non-small cell lung cancer, adenocarcinoma histology. -- The question remains as to whether or not the esophageal cancer is related to the lung lesions versus 2 primaries. --s/p XRT simulation, awaiting start of radiation. (3) COPD with exacerbation ICD Codes: J44.1 - Chronic obstructive pulmonary disease with (acute) exacerbation Status: Chronic Plan: home medications resumed, + PRN duonebs --pulmonology consulted --goal to keep saturation>90% (4) HTN (hypertension) ICD Codes: I10 - Essential (primary) hypertension Plan: --home medications resumed. Assessment 77y/o female with lung cancer, now with dysphagia and concern for esophageal cancer. h/o hypertension, hiatal hernia, anxiety, COPD Plan 1. consult speech therapy for diet consistency recommendations 2. consult respiratory for O2 walk test to see if she needs O2 at home. 3. continue supportive care Attending Statement The exam, history, and the medical decision-making described in the above note were completed with the assistance of the mid-level provider. I reviewed and agree with the findings presented. I attest that I had a [id number] encounter with the patient on the same day, and personally performed and documented my assessment and findings in the medical record. C/o SOB and posterior chest pain when she walks. Tenderness port site but no significant erythema. Possible COPD exacerbation but need to r/o PE. Get CTA. Start steroid. Monitor closely. Problem Qualifiers (1) Lung cancer: Jenny Negron May 20, 2017 08:56 Selwyn Hills MD May 20, 2017 11:44
[2017-05-20] MEDS: BUDESONIDE-FORMOTEROL 160/4.5 MCG INHALER INH SCH ×2 (09:03→21:02)
[2017-05-20] MEDS: PARoxetine HCL 20 MG TAB PO SCH (09:04)
[2017-05-20] MEDS: PANTOPRAZOLE SOD 40 MG DELAYED RELEASE TAB PO SCH (09:04)
[2017-05-20] MEDS: PRAVASTATIN SOD 20 MG TAB PO SCH (09:04)
[2017-05-20] MEDS: HYDROCHLOROTHIAZIDE 25 MG TAB PO SCH (09:04)
[2017-05-20] MEDS: NIFEdipine 90 MG SUSTAINED RELEASE TAB PO SCH (09:04)
[2017-05-20] MEDS: LOSARTAN 50 MG TAB PO SCH (09:04)
[2017-05-20] MEDS: OXYBUTYNIN CHLORIDE 5 MG TAB PO SCH ×2 (09:04→20:57)
[2017-05-20] MEDS: POTASSIUM CHLOR 20 MEQ PREMIX 100 ML IV SCH ×2 (09:57→12:06)
--- NOTE | 2017-05-20 10:35 | HHI.FF ---
Face to Face Verification Diagnosis: (1) Esophageal mass (2) COPD with exacerbation (3) HTN (hypertension) (4) Lung cancer Home Health Nursing Order: Medical education Signs/symptoms of disease process Oxygen administration education Nursing assessment with vital signs I have seen patient Catie Madera on 05/20/17. My clinical findings support the need for the requested home health care services because: Patient has SOB I certify that my clinical findings support that this patient is homebound because: Hx COPD- exertion dyspnea/weakness Jenny Negron May 20, 2017 10:35
[2017-05-20] MEDS: RESP: ALBUTEROL 2.5 MG/IPRATROPIUM 0.5 MG NEB (PRN) NEB (11:03)
[2017-05-20] MEDS: methylPREDNISolone SOD SUCC 40 MG/1 ML VIAL IV PUSH SCH ×2 (12:05→21:01)
[2017-05-20] MEDS: ENOXAPARIN SODIUM 40 MG/0.4 ML SYRINGE SQ SCH (12:05)
[2017-05-20] MEDS ORDERED: IOHEXOL 350 MG/ML 10 ML VIAL (for RAD DIAG) IVCONTRAST ONE (13:22)
--- NOTE | 2017-05-20 13:41 | RADRPT ---
EXAM DATE/TIME: 05/20/2017 13:11 [facility] COMPARISON: No previous studies available for comparison. INDICATIONS : Shortness of breath, posterior chest pain while walking. IV CONTRAST: 50 cc Omnipaque 350 (iohexol) IV RADIATION DOSE: 10.77 CTDIvol (mGy) MEDICAL HISTORY : Chronic obstructive pulmonary disease. Hypertension. Gastroesophageal reflux disease. SURGICAL HISTORY : None. ENCOUNTER: Initial ACUITY: 1 day PAIN SCALE: 4/10 LOCATION: Bilateral posterior chest TECHNIQUE: Volumetric scanning of the chest was performed using a pulmonary embolism protocol MIP images were re constructed. Using automated exposure control and adjustment of the mA and/or kV according to patien t size, radiation dose was kept as low as reasonably achievable to obtain optimal diagnostic quality images. DICOM format image data is available electronically for review and comparison. Follow-up recommendations for detected pulmonary nodules are based at a minimum on nodule size and pa tient risk factors according to Fleischner Society Guidelines. FINDINGS: Correlation is made with a CT from [place] radiation onc[facility]. This was performed on May 15. There is patchy airspace disease in the right upper lobe which is slightly more extensive than on May 15. There is also basilar airspace consolidation and small effusions which have developed since May 15. There is marked mural thickening of the esophagus above the hiatal hernia which may represent neoplas m. Moderate severe coronary calcifications. No acute findings in the upper abdomen. Bilateral renal cyst s. CONCLUSION: 1. Development of basilar airspace disease and small effusions since May 15 [facility] from [facility] on oncology. Also slight increase in consolidation in the right upper lobe. 2. Abnormal mural thickening of the esophagus just above large hiatal hernia. Reason for recent radia tion therapy planning is unclear. Current findings are concerning for esophageal neoplasm. Ronan Rousseau MD on May 20, 2017 at 13:30 Board Certified Radiologist. This report was verified electronically.
--- NOTE | 2017-05-20 15:41 | HHI.GIFU ---
Subjective Remarks Sitting up in chair Speaking voice understandable, mild hoarseness, Concerned with eating and food being small enough for her to swallow No nausea vomiting or abdominal pain (Edyta Taylor) Objective Vitals I&O Vital Signs Date Time Temp Pulse Resp B/P (MAP) Pulse Ox O2 Delivery O2 Flow Rate FiO2 05/20/17 14:50 2.00 05/20/17 12:18 97.7 75 20 116/78 (91) 97 05/20/17 12:00 78 05/20/17 11:06 95 21 05/20/17 08:17 97.7 62 18 118/80 (93) 95 05/20/17 07:00 63 05/20/17 05:39 97.9 68 16 115/80 (92) 98 05/20/17 04:05 63 05/20/17 00:33 98.3 69 20 120/82 (95) 94 05/20/17 00:10 70 05/19/17 20:10 98.6 84 16 130/87 (101) 96 05/19/17 20:03 81 05/19/17 18:10 98.6 77 16 150/90 (110) 98 05/19/17 17:45 97.5 85 20 150/90 (110) 96 Nasal Cannula 2 05/19/17 17:30 85 20 165/95 (118) 96 Nasal Cannula 2 05/19/17 17:10 97.5 86 20 157/81 (106) 95 Nasal Cannula 2 I/O 05/19/17 05/19/17 05/19/17 05/20/17 05/20/17 05/20/17 07:00 15:00 23:00 07:00 15:00 23:00 Intake Total 240 ml 1600 ml 420 ml 100 ml Balance 240 ml 1600 ml 420 ml 100 ml Intake Oral 240 ml 0 ml IV Total 1000 ml 420 ml 100 ml Other 600 ml # Voids 3 1 # Bowel Movements 1 Laboratory Laboratory Tests Test 05/20/17 05:35 White Blood Count 3.5 Red Blood Count 3.85 Hemoglobin 9.8 Hematocrit 30.4 Mean Corpuscular Volume 79.0 Mean Corpuscular Hemoglobin 25.4 Mean Corpuscular Hemoglobin Concent 32.2 Red Cell Distribution Width 18.2 Platelet Count 128 Mean Platelet Volume 8.3 Neutrophils (%) (Auto) 57.5 Lymphocytes (%) (Auto) 25.1 Monocytes (%) (Auto) 9.6 Eosinophils (%) (Auto) 6.6 Basophils (%) (Auto) 1.2 Neutrophils # (Auto) 2.0 Lymphocytes # (Auto) 0.9 Monocytes # (Auto) 0.3 Eosinophils # (Auto) 0.2 Basophils # (Auto) 0.0 CBC Comment DIFF FINAL Differential Comment Blood Urea Nitrogen 15 Creatinine 0.97 Random Glucose 96 Calcium Level 9.0 Sodium Level 142 Potassium Level 3.3 Chloride Level 107 Carbon Dioxide Level 29.8 Anion Gap 5 Estimat Glomerular Filtration Rate [address] Angiography 05/20/17 0000 Signed Impressions: Service Date/Time: Saturday, May 20, 2017 13:11 - CONCLUSION: 1. Development of basilar airspace disease and small effusions since May 15 CT from [place] [facility]. Also slight increase in consolidation in the right upper lobe. 2. Abnormal mural thickening of the esophagus just above large hiatal hernia. Reason for recent radiation therapy planning is unclear. Current findings are concerning for esophageal neoplasm. Ronan Rousseau MD Chest X-Ray 05/18/17 0000 Signed Impressions: Service Date/Time: April 18:48 - CONCLUSION: 1. Right- sided [id number] appears well placed. 2. Persistent increased density in the right upper lung. Rajinder Chang MD Physical Exam HEENT: Pupils round and reactive to light; normocephalic; atraumatic; oral cavity moist no obvious food seen NECK: Neck is supple, obese CHEST: I'll diminished lung sounds but no audible wheezing or rhonchi CARDIAC: Regular rate and rhythm ABDOMEN: Large, Soft, nondistended, nontender; no hepatosplenomegaly; bowel sounds are present in all four quadrants. EXTREMITIES: No clubbing, cyanosis, or edema. SKIN: Pale; no rash; no jaundice. VARNISH SUPERVISOR: No focal deficits; alert and oriented times three. Mild anxiety (Edyta Taylor) Assessment and Plan Plan Assessment: - Esophageal mass- PET- CT done Apr 07 demonstrates a mass in the upper third mid esophagus suspicious for malignancy. Also a hiatal hernia. Pt reports dysphagia for the past 3-4 months, states has had to cut her food into small pieces and still feels the food gets stuck. Has had to regurgitate food after meals. Associated odynophagia. Denies dysphagia with liquids. She is not sure but does not think she has ever had an EGD. Thinks she has been losing weight, unsure of how much. 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 This is probably esophageal cancer. Patient is very concerned when eating and nose fairly well what she can tolerate or not. Agree with plan of speech therapist evaluate and swallow and dietary needs. PLAN: Await biopsies Continue with current supportive care Food soft, chopped, liquids for now. Speech therapy to evaluate swallow and dietary needs Steroids PPI Anti-emetics as needed Chew slowly and monitor for any choking Drink fluids with food Further recommendations to follow Monitor labs Pt has been seen and examined by myself and Dr. Capps and this note is written on his behalf (Edyta Taylor) Physician Comments Patient seen and examined Agree with above Continue with current supportive care Monitor lab (Jacob Capps MD) Edyta Taylor May 20, 2017 15:41 Jacob Capps MD May 20, 2017 17:57
[2017-05-20] MEDS ORDERED: ONDANSETRON HCL 4 MG/2 ML VIAL IV PUSH PRN (15:45)
[2017-05-20] MEDS: RESP: ALBUTEROL 2.5 MG/IPRATROPIUM 0.5 MG NEB (SCH) NEB ×2 (16:10→21:20)
--- NOTE | 2017-05-20 17:41 | HHI.PR ---
Subjective Remarks alert no sob up in bed Objective Vital Signs Date Time Temp Pulse Resp B/P (MAP) Pulse Ox O2 Delivery O2 Flow Rate FiO2 05/20/17 16:11 97.8 76 18 115/82 (93) 99 05/20/17 15:00 77 05/20/17 14:50 2.00 05/20/17 14:00 80 05/20/17 13:00 70 05/20/17 12:18 97.7 75 20 116/78 (91) 97 05/20/17 12:00 78 05/20/17 11:06 95 21 05/20/17 10:00 81 05/20/17 09:00 68 05/20/17 08:17 97.7 62 18 118/80 (93) 95 05/20/17 08:00 62 05/20/17 07:00 63 05/20/17 05:39 97.9 68 16 115/80 (92) 98 05/20/17 04:05 63 05/20/17 00:33 98.3 69 20 120/82 (95) 94 05/20/17 00:10 70 05/19/17 20:10 98.6 84 16 130/87 (101) 96 05/19/17 20:03 81 05/19/17 18:10 98.6 77 16 150/90 (110) 98 05/19/17 17:45 97.5 85 20 150/90 (110) 96 Nasal Cannula 2 I/O 05/19/17 05/19/17 05/19/17 05/20/17 05/20/17 05/20/17 07:00 15:00 23:00 07:00 15:00 23:00 Intake Total 240 ml 1600 ml 420 ml 680 ml Balance 240 ml 1600 ml 420 ml 680 ml Intake Oral 240 ml 0 ml IV Total 1000 ml 420 ml 680 ml Other 600 ml # Voids 3 1 # Bowel Movements 1 Result Diagram: 05/20/1735 05/20/17 0535 Objective Remarks GENERAL: SKIN: Warm and dry. HEAD: Atraumatic. Normocephalic. EYES: Pupils equal and round. No scleral icterus. No injection or drainage. ENT: No nasal bleeding or discharge. Mucous membranes pink and moist. NECK: Trachea midline. No JVD. CARDIOVASCULAR: Regular rate and rhythm. RESPIRATORY: No accessory muscle use. Clear to auscultation. Breath sounds equal bilaterally. GASTROINTESTINAL: Abdomen soft, non-tender, nondistended. Hepatic and splenic margins not palpable. MUSCULOSKELETAL: Extremities without clubbing, cyanosis, or edema. No obvious deformities. NEUROLOGICAL: Awake and alert. No obvious cranial nerve deficits. Motor grossly within normal limits. Five out of 5 muscle strength in the arms and legs. Normal speech. PSYCHIATRIC: Appropriate mood and affect; insight and judgment normal. Assessment and Plan Assessment and Plan impression lung CA COPD ? OESOPHAGEAL CA PLAN BRONCHODILATOR THERAPY CHECK PATH Getachew Chilel MD May 20, 2017 17:41
[2017-05-20] MEDS: SODIUM CHLORIDE 0.9% FLUSH 10 ML FLUSH IVF PRN (21:00)
[2017-05-21] VITALS (42 sets, daily range): BP systolic 111–173; BP diastolic 71–103; PULSE 78–149; RESP 18; TEMP 97.7–98.7; O2SAT 93–100
[2017-05-21] MEDS: RESP: ALBUTEROL 2.5 MG/IPRATROPIUM 0.5 MG NEB (SCH) NEB ×2 (03:37→08:18)
[2017-05-21 04:18] LABS: AUTOMATED NEUTROPHIL # 2.4 TH/MM3 (1.8-7.7); BASOPHIL % 0.3 % (0.0-2.0); HEMATOCRIT 29.5 % (35.0-46.0); HEMOGLOBIN 9.7 GM/DL (11.6-15.3); LYMPH % 12.1 % (9.0-44.0); LYMPHOCYTE # 0.3 TH/MM3 (1.0-4.8); MEAN CELL VOLUME 78.7 FL (80.0-100.0); MEAN CORPUSCULAR HEMOGLOBIN 25.8 PG (27.0-34.0); MEAN CORPUSCULAR HGB CONC 32.8 % (32.0-36.0); MEAN PLATELET VOLUME 8.2 FL (7.0-11.0); MONO % 1.5 % (0.0-8.0); NEUT % 86.1 % (16.0-70.0); PLATELET COUNT 139 TH/MM3 (150-450); RED BLOOD COUNT 3.75 MIL/MM3 (4.00-5.30); RED CELL DISTRIBUTION WIDTH 18.2 % (11.6-17.2); WHITE BLOOD COUNT 2.7 TH/MM3 (4.0-11.0)
[2017-05-21 04:44] LABS: ALBUMIN 3.2 GM/DL (3.4-5.0); AST (GOT) 24 U/L (15-37); BICARBONATE 27.2 MEQ/L (21.0-32.0); BLOOD UREA NITROGEN 16 MG/DL (7-18); CALCIUM 9.3 MG/DL (8.5-10.1); CHLORIDE 103 MEQ/L (98-107); CREATININE 1.08 MG/DL (0.50-1.00); GLOMERULAR FILTRATION RATE 49 ML/MIN (>89); GLUCOSE,RANDOM 180 MG/DL (74-106); SODIUM (NA) 137 MEQ/L (136-145)
[2017-05-21 04:46] LABS: ALKALINE PHOSPHATASE 63 U/L (45-117); ALT (GPT) 17 U/L (10-53); TOTAL BILIRUBIN ADULT 0.3 MG/DL (0.2-1.0); TOTAL PROTEIN 6.8 GM/DL (6.4-8.2)
[2017-05-21] MEDS ORDERED: WALKER WHEELS/F1 MIS (06:57)
[2017-05-21] MEDS ORDERED: ACETAMINOPHEN 325 MG TAB PO ONE (07:00)
[2017-05-21] MEDS ORDERED: OXYGENDME NAS.CANULA (07:03)
--- NOTE | 2017-05-21 07:05 | HHI.DCPOC ---
Discharge Care Plan Diagnosis: (1) COPD (chronic obstructive pulmonary disease) (2) HTN (hypertension) (3) Lung cancer Goals to Promote Your Health * To prevent worsening of your condition and complications * To maintain your health at the optimal level Directions to Meet Your Goals Take your medications as prescribed Follow your dietary instruction Follow activity as directed Keep your appointments as scheduled Take your immunizations and boosters as scheduled If your symptoms worsen call your PCP, if no PCP go to Urgent Care Center or Emergency Room Smoking is Dangerous to Your Health. Avoid second hand smoke Call the 24-hour hour crisis hotline for domestic abuse at Jenny Negron May 21, 2017 07:05
--- NOTE | 2017-05-21 07:06 | HHI.DS ---
Discharge Summary Admission Date May 20, 2017 at 10:31 Discharge Date: May 21, 2017 Admitting Diagnosis 1. Dysphagia. 2. Lung cancer. 3. Suspected esophageal cancer, locally advanced. (1) Esophageal mass Diagnosis: Principal ICD Codes: K22.9 - Disease of esophagus, unspecified Status: Acute (2) COPD with exacerbation Diagnosis: Principal ICD Codes: J44.1 - Chronic obstructive pulmonary disease with (acute) exacerbation Status: Chronic (3) Lung cancer Diagnosis: Principal ICD Codes: C34.90 - Malignant neoplasm of unspecified part of unspecified bronchus or lung (4) HTN (hypertension) Diagnosis: Principal ICD Codes: I10 - Essential (primary) hypertension Procedures --port placement, 05/18 --EGD with biopsy + EUS on 05/19 Brief History Ms. Madera is a 77 year old woman with recent diagnosis of NSCLC, adenocarcinoma histology. Her recent CT PET scan in mid-March showed uptake in the esophagus concerning for malignancy. This correlated with her symptoms of dysphagia, which were worsening. CBC/BMP: 05/21/17 0403 05/21/17 0403 Significant Findings Laboratory Tests Test 05/18/17 10:53 05/19/17 06:45 05/20/17 05:35 05/21/17 04:03 Hemoglobin 10.7 GM/DL (11.6-15.3) 9.4 GM/DL (11.6-15.3) 9.8 GM/DL (11.6-15.3) 9.7 GM/DL (11.6-15.3) Hematocrit 32.7 % (35.0-46.0) 28.2 % (35.0-46.0) 30.4 % (35.0-46.0) 29.5 % (35.0-46.0) Mean Corpuscular Volume 77.2 FL (80.0-100.0) 78.1 FL (80.0-100.0) 79.0 FL (80.0-100.0) 78.7 FL (80.0-100.0) Mean Corpuscular Hemoglobin 25.3 PG (27.0-34.0) 25.9 PG (27.0-34.0) 25.4 PG (27.0-34.0) 25.8 PG (27.0-34.0) Red Cell Distribution Width 18.5 % (11.6-17.2) 18.0 % (11.6-17.2) 18.2 % (11.6-17.2) 18.2 % (11.6-17.2) Platelet Count 139 TH/MM3 (150-450) 120 TH/MM3 (150-450) 128 TH/MM3 (150-450) 139 TH/MM3 (150-450) Monocytes (%) (Auto) 8.3 % (0.0-8.0) 10.1 % (0.0-8.0) 9.6 % (0.0-8.0) Eosinophils (%) (Auto) 7.4 % (0.0-4.0) 5.3 % (0.0-4.0) 6.6 % (0.0-4.0) Lymphocytes # (Auto) 0.8 TH/MM3 (1.0-4.8) 0.9 TH/MM3 (1.0-4.8) 0.9 TH/MM3 (1.0-4.8) 0.3 TH/MM3 (1.0-4.8) Blood Urea Nitrogen 20 MG/DL (7-18) Albumin 3.3 GM/DL (3.4-5.0) 3.2 GM/DL (3.4-5.0) Potassium Level 2.6 MEQ/L (3.5-5.1) 3.3 MEQ/L (3.5-5.1) Estimat Glomerular Filtration Rate 55 ML/MIN (>89) 65 ML/MIN (>89) 56 ML/MIN (>89) 49 ML/MIN (>89) White Blood Count 3.7 TH/MM3 (4.0-11.0) 3.5 TH/MM3 (4.0-11.0) 2.7 TH/MM3 (4.0-11.0) Red Blood Count 3.61 MIL/MM3 (4.00-5.30) 3.85 MIL/MM3 (4.00-5.30) 3.75 MIL/MM3 (4.00-5.30) Random Glucose 62 MG/DL (74-106) 180 MG/DL (74-106) Chloride Level 108 MEQ/L (98-107) Anion Gap 3 MEQ/L (5-15) Neutrophils (%) (Auto) 86.1 % (16.0-70.0) Creatinine 1.08 MG/DL (0.50-1.00) Imaging Last Impressions CT Angiography 05/20/17 0000 Signed Impressions: Service Date/Time: Saturday, May 20, 2017 13:11 - CONCLUSION: 1. Development of basilar airspace disease and small effusions since May 15 CT from [place] [facility]. Also slight increase in consolidation in the right upper lobe. 2. Abnormal mural thickening of the esophagus just above large hiatal hernia. Reason for recent radiation therapy planning is unclear. Current findings are concerning for esophageal neoplasm. Ronan Rousseau MD Chest X-Ray 05/18/17 0000 Signed Impressions: Service Date/Time: April 18:48 - CONCLUSION: 1. Right- sided [id number] appears well placed. 2. Persistent increased density in the right upper lung. Rajinder Chang MD PE at Discharge please see physical exam from progress note on date of discharge. Hospital Course Ms. Madera was admitted on 05/18/17. Her home medications were resumed. General Surgery was consulted and placed a port on the same day as admission. Gastroenterology was also consulted and the patient underwent EGD with biopsy, followed by EUS on 05/19. The patient's seal mixer was also consulted to assist with managing her underlying COPD. The patient began to have difficulty maintaining her oxygen saturations overnight on 05/20/17. Therefore, a CTA was obtained which showed development of bilateral airspace disease and small effusions as well as an increase in consolidation in the right upper lobe. There was no pulmonary emboli diagnosed. Ms. Madera was started on steroids and had an O2 walk test to determine if she would need home oxygen. Her home O2 was arranged, as well as home physical therapy and nursing care. Her seal mixer Dr. Chilel cleared her for discharge. She is tolerating a mechanical soft diet and a script was written for Ensure Enlive as a supplement per the med spec recommendation. She is being discharged in good condition with instructions for follow up in the clinic next week. Pt Condition on Discharge: Good Discharge Disposition: Discharge Home Discharge Instructions DIET: Follow Instructions for: Soft Diet Speech Therapy-Diet Recommenda: Mechanical Soft, Chopped Meat w/Gravy Activities you can perform: Regular-No Restrictions Jenny Negorn May 21, 2017 07:06
[2017-05-21] MEDS ORDERED: NUTR-265 PO (07:41)
[2017-05-21] MEDS ORDERED: PRED10PA PO ×2 (07:41→10:18)
[2017-05-21] MEDS: PARoxetine HCL 20 MG TAB PO SCH (08:31)
[2017-05-21] MEDS: BUDESONIDE-FORMOTEROL 160/4.5 MCG INHALER INH SCH ×2 (08:31→21:55)
[2017-05-21] MEDS: NIFEdipine 90 MG SUSTAINED RELEASE TAB PO SCH (08:31)
[2017-05-21] MEDS: predniSONE 20 MG TAB PO SCH ×2 (08:31→21:48)
[2017-05-21] MEDS: PANTOPRAZOLE SOD 40 MG DELAYED RELEASE TAB PO SCH (08:31)
[2017-05-21] MEDS: OXYBUTYNIN CHLORIDE 5 MG TAB PO SCH ×2 (08:31→21:48)
[2017-05-21] MEDS: LOSARTAN 50 MG TAB PO SCH (08:32)
[2017-05-21] MEDS: HYDROCHLOROTHIAZIDE 25 MG TAB PO SCH (08:32)
[2017-05-21] MEDS: PRAVASTATIN SOD 20 MG TAB PO SCH (08:32)
--- NOTE | 2017-05-21 08:45 | PD.ONC.PN ---
Subjective Subjective Remarks Afebrile overnight. Patient feeling better today. she requires oxygen with exertion, failed O2 walk test. feels ready to go home, as long as she has oxygen. no complaints. Objective Data Date Time Temp Pulse Resp B/P (MAP) Pulse Ox O2 Delivery O2 Flow Rate FiO2 05/21/17 08:19 97 Nasal Cannula 2.00 05/21/17 08:08 147/84 (105) 05/21/17 08:07 93 05/21/17 07:36 97.7 84 18 173/97 (122) 100 05/21/17 07:00 94 05/21/17 05:09 87 05/21/17 05:00 86 05/21/17 04:00 84 05/21/17 03:00 78 05/21/17 02:00 84 05/21/17 01:33 95 05/21/17 01:00 84 05/21/17 00:10 97 18 155/96 (115) 93 05/21/17 00:00 98 05/20/17 23:00 92 05/20/17 22:00 86 05/20/17 21:21 99 Nasal Cannula 2.00 05/20/17 21:00 78 05/20/17 20:22 82 05/20/17 20:05 98.3 83 20 140/94 (109) 96 05/20/17 20:00 82 05/20/17 18:16 80 05/20/17 17:00 78 05/20/17 16:11 97.8 76 18 115/82 (93) 99 05/20/17 16:00 78 05/20/17 15:00 77 05/20/17 14:50 2.00 05/20/17 14:00 80 05/20/17 13:00 70 05/20/17 12:18 97.7 75 20 116/78 (91) 97 05/20/17 12:00 78 05/20/17 11:06 95 21 05/20/17 10:00 81 05/20/17 09:00 68 05/21/17 05/21/17 05/21/17 06:59 14:59 22:59 Intake Total 480 ml Output Total 1000 ml Balance -520 ml Result Diagram: 05/21/17 0403 05/21/17 0403 Laboratory Results Laboratory Tests Test 05/21/17 04:03 White Blood Count 2.7 TH/MM3 Red Blood Count 3.75 MIL/MM3 Hemoglobin 9.7 GM/DL Hematocrit 29.5 % Mean Corpuscular Volume 78.7 FL Mean Corpuscular Hemoglobin 25.8 PG Mean Corpuscular Hemoglobin Concent 32.8 % Red Cell Distribution Width 18.2 % Platelet Count 139 TH/MM3 Mean Platelet Volume 8.2 FL Neutrophils (%) (Auto) 86.1 % Lymphocytes (%) (Auto) 12.1 % Monocytes (%) (Auto) 1.5 % Eosinophils (%) (Auto) 0.0 % Basophils (%) (Auto) 0.3 % Neutrophils # (Auto) 2.4 TH/MM3 Lymphocytes # (Auto) 0.3 TH/MM3 Monocytes # (Auto) 0.0 TH/MM3 Eosinophils # (Auto) 0.0 TH/MM3 Basophils # (Auto) 0.0 TH/MM3 CBC Comment DIFF FINAL Differential Comment Blood Urea Nitrogen 16 MG/DL Creatinine 1.08 MG/DL Random Glucose 180 MG/DL Total Protein 6.8 GM/DL Albumin 3.2 GM/DL Calcium Level 9.3 MG/DL Alkaline Phosphatase 63 U/L Aspartate Amino Transf (AST/SGOT) 24 U/L Alanine Aminotransferase (ALT/SGPT) 17 U/L Total Bilirubin 0.3 MG/DL Sodium Level 137 MEQ/L Potassium Level 3.7 MEQ/L Chloride Level 103 MEQ/L Carbon Dioxide Level 27.2 MEQ/L Anion Gap 7 MEQ/L Estimat Glomerular Filtration Rate 49 ML/MIN Administered Medications Medications (Trade) Dose Ordered Sig/Dusty Route PRN Reason Start Time Stop Time Status Last Admin Dose Admin Sodium Chloride (NS Flush) 5 ml UNSCH PRN IVF SEE PROTOCOL 05/18/17 08:45 05/20/17 21:00 Albuterol/ Ipratropium (Duoneb Neb) 1 ampule Q4HR NEB PRN NEB shortness of breath 05/18/17 11:45 05/20/17 11:03 Pravastatin Sodium (Pravachol) 20 mg DAILY PO 05/19/17 09:00 05/21/17 08:32 Nifedipine (Procardia Xl) 90 mg DAILY PO 05/19/17 09:00 05/21/17 08:31 Losartan Potassium (Cozaar) 100 mg DAILY PO 05/19/17 09:00 05/21/17 08:32 Paroxetine HCl (Paxil) 40 mg DAILY PO 05/19/17 09:00 05/21/17 08:31 Hydrochlorothiazide (Hydrodiuril) 25 mg DAILY PO 05/19/17 09:00 05/21/17 08:32 Budesonide/ Formoterol Fumarate (Symbicort 160-4.5 Mcg Inh) 2 puff Q12HR INH 05/18/17 21:00 05/21/17 08:31 Pantoprazole Sodium (Protonix) 40 mg DAILY PO 05/19/17 09:00 05/21/17 08:31 Oxybutynin Chloride (Ditropan) 5 mg Q12HR PO 05/18/17 21:00 05/21/17 08:31 Acetaminophen/ Hydrocodone Bitart ([place] 7.5-325 Mg) 1 tab Q6H PRN PO PAIN SCALE 1-10 05/19/17 22:15 05/19/17 22:10 Albuterol/ Ipratropium (Duoneb Neb) 1 ampule Q6HR NEB NEB 05/20/17 16:00 05/21/17 08:18 Enoxaparin Sodium (Lovenox Inj) 40 mg Q24H SQ 05/20/17 12:00 05/20/17 12:05 Prednisone (Deltasone) 20 mg BID PO 05/21/17 09:00 05/21/17 08:31 Objective Remarks GENERAL: Elderly female, upright in bed in nad. On 2L O2 via NC SKIN: Warm and dry. HEAD: Normocephalic. EYES: No injection or drainage. NECK: Supple, trachea midline. CARDIOVASCULAR: Regular rate and rhythm RESPIRATORY: scattered rhonchi GASTROINTESTINAL: Abdomen soft, non-tender, nondistended. EXTREMITIES: No cyanosis NEUROLOGICAL: No obvious focal deficit. Awake, alert, and oriented x3. Assessment/Plan Problem List: (1) Esophageal mass ICD Codes: K22.9 - Disease of esophagus, unspecified Status: Acute Plan: ++PET avid lesion in esophagus --unclear if this is related to lung lesion. --s/p EGD with biopsy on 05/19 --s/p port placement. (2) Lung cancer ICD Codes: C34.90 - Malignant neoplasm of unspecified part of unspecified bronchus or lung Plan: -- lung lesion pathology showed a non-small cell lung cancer, adenocarcinoma histology. -- The question remains as to whether or not the esophageal cancer is related to the lung lesions versus 2 primaries. --s/p XRT simulation, awaiting start of radiation. (3) COPD with exacerbation ICD Codes: J44.1 - Chronic obstructive pulmonary disease with (acute) exacerbation Status: Chronic Plan: home medications resumed, + PRN duonebs --pulmonology consulted --goal to keep saturation>90% (4) HTN (hypertension) ICD Codes: I10 - Essential (primary) hypertension Plan: --home medications resumed. Assessment 77y/o female with lung cancer, now with dysphagia and concern for esophageal cancer. h/o hypertension, hiatal hernia, anxiety, COPD Plan 1. will discharge when cleared by pulmonology 2. consult high risk case manager to arrange home O2, home health care nursing and physical therapy. 3. Rx written for Ensure Enlive at shoe patternmaker recommendation and patient's request. update: just prior to discharge the patient developed a tachyarrythmia. 12- lead EKG was obtained and cardiology was consulted. Attending Statement The exam, history, and the medical decision-making described in the above note were completed with the assistance of the mid-level provider. I reviewed and agree with the findings presented. I attest that I had a [id number] encounter with the patient on the same day, and personally performed and documented my assessment and findings in the medical record. Pt developed tachycardia while trying to get out of bed. No CP or SOB. Denies palpitation. EKG showed A.fib RVR. Hospital is out of Cardizem IV. Cardiology consulted for assistance. CTA showed no PE. Bibasilar consolidation, ?pneumonia. Will give her prophylactic abx and lower steroid. Problem Qualifiers (1) Lung cancer: Jenny Negron May 21, 2017 08:45 Selwyn Hills MD May 21, 2017 11:16
[2017-05-21] MEDS ORDERED: DILTIAZEM INJ 125 MG in SODIUM CHLORIDE 0.9% INJ 100 ML IV PRN (11:00)
[2017-05-21] MEDS ORDERED: SODIUM CHLORIDE 0.9% FLUSH 10 ML FLUSH IV FLUSH PRN (11:00)
[2017-05-21] MEDS ORDERED: DILTIAZEM HCL 25 MG/5 ML VIAL IV ONE (11:00)
[2017-05-21] MEDS: ENOXAPARIN SODIUM 40 MG/0.4 ML SYRINGE SQ SCH (11:30)
[2017-05-21] MEDS ORDERED: METOPROLOL TARTRATE 5 MG/5 ML VIAL IV PUSH ONE ×2 (11:30→12:00)
[2017-05-21] MEDS ORDERED: VERAPAMIL HCL 5 MG/2 ML VIAL IV PUSH ONE ×2 (12:30→13:00)
[2017-05-21] MEDS ORDERED: AMIODARONE INJ 150 MG in DEXTROSE 5% IN WATER 100ML INJ 97 ML IV ONE ×2 (13:00)
--- NOTE | 2017-05-21 13:01 | PD.CONS ---
[facility] Reason for Consult Atrial fibrillation, lung cancer, COPD. Primary Care Physician Regan Garsia DO Diagnoses: (1) Esophageal mass (2) COPD with exacerbation (3) Lung cancer (4) HTN (hypertension) History of Present Illness This is a 77-year-old female with history of hypertension, COPD, and lung nodules, recently diagnosed to have non-small cell lung carcinoma with possible esophageal malignancy correlating with dysphagia as her symptoms. Because of dysphagia and anticipation of treatment, the patient was admitted 05/18/2017 for port placement. General surgery was consulted and the port was placed. Gastroenterology was also consulted for EGD with biopsy followed by EUS on 2016. Pulmonary was consulted for COPD. Last night, patient had hypoxia, CTA was done which showed bilateral airspace disease and small effusions as well as increased consolidation in the right lobe but no pulmonary embolism. Patient was started on steroids and patient was primed for discharge. However just prior to discharge, the patient had a tachyarrhythmia, possible atrial fibrillation with rapid ventricular rhythm. Recently, patient is eating lunch, status post a few doses of metoprolol and verapamil. Patient denies any chest pain, shortness of breath or palpitations. No fever or chills. Patient has mild shortness of breath but chronic and stable. She also has a dry cough. Dysphagia is also better after EUS/EGD. Patient seen by speech therapy and recommended mechanical soft, thin liquids. Review of Systems ROS Limitations: Other (ROS negative.) Past Family Social History Allergies: Coded Allergies: penicillin G (Unverified Allergy, Severe, RASH, 10/06/16) Past Medical History Hypertension Large hiatal hernia Anxiety Anemia Non-small cell lung cancer COPD Coronary artery disease Esophageal mass causing dysphagia Past Surgical History Right upper lobe biopsy Hysterectomy EGD Reported Medications Prednisone (21) 10 mg tab Dose Pack (Prednisone) 10 Mg Pack 10 Mg PO DIRECTED day 1 take 6 pills: take 2 pills before breakfast, 1 after lunch, 1 after supper, and 2 at bedtime, day 2 take 5 pills- take 1 pill before breakfast, 1 after lunch, 1 after supper, and 2 at bedtime, day 3 take 4 pills,- take 1 pill before breakfast, 1 after lunch, 1 after supper, and 1 at bedtime, day 4 take 3 pills- take 1 pill before breakfast, 1 after lunch, and 1 at bedtime, day 5 take 2 pills- take 1 pill before breakfast, and 1 at bedtime, day 6 take 1 pill- take 1 pill before breakfast Ensure Enlive (Lactose-Reduced Food) 0.08 Gram-1.5 Kcal/Ml Liquid 3 Can PO DAILY 30 Days Oxygen (O2) Device Liter STEVE.CANULA CONTINUOUS Oxygen Concentrator Portable Gaseous 2 L/min via Nasal Canula Continuous For 99 months Walker with Front Wheels (Device) 1 Mis Mis Ea .XX DIRECTED Prednisone 20 Mg Tab 20 Mg PO DIRECTED 20 MG twice a day x 3 days, then 20 MG daily x 3 days, then 10 MG daily x 3 days Pantoprazole (Pantoprazole Sodium) 40 Mg Tab 40 Mg PO DAILY Symbicort Inh (Budesonide/Formoterol Fumarate) 160-4.5 Mcg/Act Aero 2 Puff INH Q12HR Adult Aspirin EC Low Strength (Aspirin) 81 Mg Tabec 81 Mg PO DAILY Flagyl (Metronidazole) 500 Mg Tab 500 Mg PO Q8HR Levaquin (Levofloxacin) 750 Mg Tablet 750 Mg PO DAILY Reported Ventolin Hfa 18 GM Inh (Albuterol Sulfate) 90 Mcg/Act Aer 1 Puff INH Q4H PRN [elipta] Potassium Chloride ER (Potassium Chloride) 20 Meq Tab 20 Meq PO DAILY Hydrochlorothiazide 25 Mg Tab 25 Mg PO DAILY Losartan (Losartan Potassium) 100 Mg Tab 100 Mg PO DAILY Nifedipine ER (Nifedipine) 90 Mg Tab 90 Mg PO DAILY Zocor (Simvastatin) 40 Mg Tab 40 Mg PO DAILY Paroxetine (Paroxetine HCl) 40 Mg Tab 40 Mg PO DAILY Ditropan (Oxybutynin Chloride) 5 Mg Tab 5 Mg PO Q12HR Family History No family history of cancer Social History Patient smoked for several years, stopped 10 years ago. No alcohol use. Physical Exam Vital Signs Vital Signs Date Time Temp Pulse Resp B/P (MAP) Pulse Ox O2 Delivery O2 Flow Rate FiO2 05/21/17 11:11 98.3 145 18 136/87 (103) 95 05/21/17 10:00 104 05/21/17 09:00 96 05/21/17 08:19 97 Nasal Cannula 2.00 05/21/17 08:08 147/84 (105) 05/21/17 08:07 93 05/21/17 07:36 97.7 84 18 173/97 (122) 100 05/21/17 07:00 94 05/21/17 05:09 87 05/21/17 05:00 86 05/21/17 04:00 84 05/21/17 03:00 78 05/21/17 02:00 84 05/21/17 01:33 95 05/21/17 01:00 84 05/21/17 00:10 97 18 155/96 (115) 93 05/21/17 00:00 98 05/20/17 23:00 92 05/20/17 22:00 86 05/20/17 21:21 99 Nasal Cannula 2.00 05/20/17 21:00 78 05/20/17 20:22 82 05/20/17 20:05 98.3 83 20 140/94 (109) 96 05/20/17 20:00 82 05/20/17 18:16 80 05/20/17 17:00 78 05/20/17 16:11 97.8 76 18 115/82 (93) 99 05/20/17 16:00 78 05/20/17 15:00 77 05/20/17 14:50 2.00 05/20/17 14:00 80 05/20/17 13:00 70 Physical Exam Not in distress, well-nourished, eating lunch PERRL, pink conjunctiva without injection, anicteric Nose without bleeding, airway patent Supple neck, no masses or thyromegaly, trachea midline Tachycardic, regular rhythm, no murmurs appreciated. Clear breath sounds, decreased on the right upper lobes, no wheezing, no crackles. Normal bowel sounds, soft, non-tender, nondistended, no guarding. Extremities without clubbing, cyanosis, or edema. AAO x3, no cranial nerve deficits, moves all 4 extremities, no focal neurologic deficits Laboratory Laboratory Tests Test 05/21/17 04:03 White Blood Count 2.7 Red Blood Count 3.75 Hemoglobin 9.7 Hematocrit 29.5 Mean Corpuscular Volume 78.7 Mean Corpuscular Hemoglobin 25.8 Mean Corpuscular Hemoglobin Concent 32.8 Red Cell Distribution Width 18.2 Platelet Count 139 Mean Platelet Volume 8.2 Neutrophils (%) (Auto) 86.1 Lymphocytes (%) (Auto) 12.1 Monocytes (%) (Auto) 1.5 Eosinophils (%) (Auto) 0.0 Basophils (%) (Auto) 0.3 Neutrophils # (Auto) 2.4 Lymphocytes # (Auto) 0.3 Monocytes # (Auto) 0.0 Eosinophils # (Auto) 0.0 Basophils # (Auto) 0.0 CBC Comment DIFF FINAL Differential Comment Blood Urea Nitrogen 16 Creatinine 1.08 Random Glucose 180 Total Protein 6.8 Albumin 3.2 Calcium Level 9.3 Alkaline Phosphatase 63 Aspartate Amino Transf (AST/SGOT) 24 Alanine Aminotransferase (ALT/SGPT) 17 Total Bilirubin 0.3 Sodium Level 137 Potassium Level 3.7 Chloride Level 103 Carbon Dioxide Level 27.2 Anion Gap 7 Estimat Glomerular Filtration Rate 49 Result Diagram: 05/21/17 0403 05/21/17 [address] Angiography 05/20/17 0000 Signed Impressions: Service Date/Time: Saturday, May 20, 2017 13:11 - CONCLUSION: 1. Development of basilar airspace disease and small effusions since May 15 CT from [place] radiation onc[facility]. Also slight increase in consolidation in the right upper lobe. 2. Abnormal mural thickening of the esophagus just above large hiatal hernia. Reason for recent radiation therapy planning is unclear. Current findings are concerning for esophageal neoplasm. Ronan Rousseau MD Chest X-Ray 05/18/17 0000 Signed Impressions: Service Date/Time: April 18:48 - CONCLUSION: 1. Right- sided [id number] appears well placed. 2. Persistent increased density in the right upper lung. Rajinder Chang MD Course Status post port placement Assessment and Plan Problem List: (1) Esophageal mass ICD Code: K22.9 - Disease of esophagus, unspecified Status: Acute (2) COPD with exacerbation ICD Code: J44.1 - Chronic obstructive pulmonary disease with (acute) exacerbation Status: Chronic (3) Lung cancer ICD Code: C34.90 - Malignant neoplasm of unspecified part of unspecified bronchus or lung (4) HTN (hypertension) ICD Code: I10 - Essential (primary) hypertension Assessment and Plan This is a 77-year-old female with history of hypertension and COPD with recently diagnosed non-small cell lung carcinoma in March, admitted for dysphagia secondary to esophageal lesion Atrial fibrillation, RVR- EKG reviewed, shows atrial fibrillation with RVR. Consult cardiology, on verapamil as needed. Check magnesium. non-small cell lung cancer-status post port placement care of surgery, chemotherapy per oncology as outpatient. Dysphagia secondary to esophageal lesion, possible esophageal cancer-status post EGD, EUS with biopsy care of gastroenterology. Pathology pending. Patient seen by speech therapy and recommended mechanical soft, thin liquids. Severe COPD-management per graciela Dunbar as needed, on Symbicort. Currently not in exacerbation, continue prednisone 20 mg twice a day. Hypertension-continue hydrochlorothiazide, losartan, nifedipine DVT prophylaxis: Lovenox for DVT prophylaxis Thank you very much for this consultation, we will follow along with you. Problem Qualifiers (1) Lung cancer: Gen Arnett MD May 21, 2017 13:01
[2017-05-21] MEDS ORDERED: MAGNESIUM SULFATE 1 GM PREMIX 100 ML IV PRN (13:15)
[2017-05-21] MEDS ORDERED: POTASSIUM CHLOR 10 MEQ PREMIX 100 ML IV ONE (13:15)
[2017-05-21] MEDS: AZTREONAM INJ 2,000 MG in SODIUM CHLORIDE 0.9% INJ 100 ML IV SCH ×2 (13:31→22:11)
--- NOTE | 2017-05-21 13:37 | MB ---
cc: David Amanda MD DATE: 05/21/2017 REASON FOR CONSULTATION: Evaluation of rapid atrial fibrillation. HISTORY OF PRESENT ILLNESS: Manda Madera is a 77-year-old female, apparently sees my colleague, Dr. Meng. She has a history of hypertension, hyperlipidemia, COPD. She has been diagnosed with adenocarcinoma of the lung and also has esophageal cancer. Today, she started noticing onset of rapid heartbeat and telemetry and EKG are showing atrial fibrillation with RVR. Denies any chest pain. She has difficulty swallowing, which is from her cancer. He does not have any acute chest pain going on at this time. Cardizem was completely depleted at the hospital pharmacy, so I cannot order a Cardizem drip. PAST SURGICAL HISTORY: Includes hysterectomy. ALLERGIES: PENICILLIN. MEDICATIONS: She has received some boluses of metoprolol and verapamil IV. She is on 40 mg of Lovenox subQ daily, pravastatin 20 mg daily, losartan 100 mg daily, hydrochlorothiazide 25 mg daily, nifedipine 90 mg daily, Paxil 40 mg daily, Symbicort, pantoprazole, Ditropan, prednisone. FAMILY HISTORY: Negative for heart disease. SOCIAL HISTORY: She smoked until 10 years ago. REVIEW OF SYSTEMS: Otherwise, negative. PHYSICAL EXAMINATION: GENERAL: Elderly white female sitting in a chair and does not appear to be in acute distress. VITAL SIGNS: Telemetry showing atrial fibrillation with increased rate. Remainder of vitals are charted. HEENT: Unremarkable. NECK: Reveals no JVD, no bruits. CHEST: Shows diminished breath sounds. CARDIAC: S1, S2. Irregular rate and rhythm and tachycardic, 1/6 systolic murmur. ABDOMEN: Soft. EXTREMITIES: Show no peripheral edema. LABORATORY DATA: EKG shows atrial fibrillation with RVR. Hematocrit is 29.5, white count 2700. Potassium 3.7, creatinine 1.08. IMPRESSION: Atrial fibrillation with rapid ventricular response, undoubtedly related to COPD, possibly related to her cancers as well. PLAN: I have given her some boluses of verapamil. I am going to start IV amiodarone with a bolus and a drip. Hopefully try to get her converted to sinus rhythm. Prognosis obviously very limited. It would be nice if we could get her converted to sinus so she can go home. I will also check a 2D echo Doppler study. Check magnesium levels and replete if needed, give additional 10 of potassium, try to get the potassium level greater than 4. MD CHELITA Merida/TL , 01:07 PM , 01:36 PM
--- NOTE | 2017-05-21 13:40 | HHI.GIFU ---
Subjective Remarks Pt oob to chair, eating lunch. Says it feels like food is getting stuck in her throat and wants her meat better chopped. (Dionne Taveras) Objective Vitals I&O Vital Signs Date Time Temp Pulse Resp B/P (MAP) Pulse Ox O2 Delivery O2 Flow Rate FiO2 05/21/17 12:00 126 05/21/17 11:11 98.3 145 18 136/87 (103) 95 05/21/17 11:00 149 05/21/17 10:00 104 05/21/17 09:00 96 05/21/17 08:19 97 Nasal Cannula 2.00 05/21/17 08:08 147/84 (105) 05/21/17 08:07 93 05/21/17 07:36 97.7 84 18 173/97 (122) 100 05/21/17 07:00 94 05/21/17 05:09 87 05/21/17 05:00 86 05/21/17 04:00 84 05/21/17 03:00 78 05/21/17 02:00 84 05/21/17 01:33 95 05/21/17 01:00 84 05/21/17 00:10 97 18 155/96 (115) 93 05/21/17 00:00 98 05/20/17 23:00 92 05/20/17 22:00 86 05/20/17 21:21 99 Nasal Cannula 2.00 05/20/17 21:00 78 05/20/17 20:22 82 05/20/17 20:05 98.3 83 20 140/94 (109) 96 05/20/17 20:00 82 05/20/17 18:16 80 05/20/17 17:00 78 05/20/17 16:11 97.8 76 18 115/82 (93) 99 05/20/17 16:00 78 05/20/17 15:00 77 05/20/17 14:50 2.00 05/20/17 14:00 80 I/O 05/20/17 05/20/17 05/20/17 05/21/17 05/21/17 05/21/17 07:00 15:00 23:00 07:00 15:00 23:00 Intake Total 420 ml 680 ml 1200 ml 480 ml Output Total 1200 ml 1000 ml Balance 420 ml 680 ml 0 ml -520 ml Intake Oral 1200 ml 480 ml IV Total 420 ml 680 ml Output Urine Total 1200 ml 1000 ml # Bowel Movements 1 0 Laboratory Laboratory Tests Test 05/21/17 04:03 White Blood Count 2.7 Red Blood Count 3.75 Hemoglobin 9.7 Hematocrit 29.5 Mean Corpuscular Volume 78.7 Mean Corpuscular Hemoglobin 25.8 Mean Corpuscular Hemoglobin Concent 32.8 Red Cell Distribution Width 18.2 Platelet Count 139 Mean Platelet Volume 8.2 Neutrophils (%) (Auto) 86.1 Lymphocytes (%) (Auto) 12.1 Monocytes (%) (Auto) 1.5 Eosinophils (%) (Auto) 0.0 Basophils (%) (Auto) 0.3 Neutrophils # (Auto) 2.4 Lymphocytes # (Auto) 0.3 Monocytes # (Auto) 0.0 Eosinophils # (Auto) 0.0 Basophils # (Auto) 0.0 CBC Comment DIFF FINAL Differential Comment Blood Urea Nitrogen 16 Creatinine 1.08 Random Glucose 180 Total Protein 6.8 Albumin 3.2 Calcium Level 9.3 Alkaline Phosphatase 63 Aspartate Amino Transf (AST/SGOT) 24 Alanine Aminotransferase (ALT/SGPT) 17 Total Bilirubin 0.3 Sodium Level 137 Potassium Level 3.7 Chloride Level 103 Carbon Dioxide Level 27.2 Anion Gap 7 Estimat Glomerular Filtration Rate [address] Angiography 05/20/17 0000 Signed Impressions: Service Date/Time: Saturday, May 20, 2017 13:11 - CONCLUSION: 1. Development of basilar airspace disease and small effusions since May 15 CT from [place] [facility]. Also slight increase in consolidation in the right upper lobe. 2. Abnormal mural thickening of the esophagus just above large hiatal hernia. Reason for recent radiation therapy planning is unclear. Current findings are concerning for esophageal neoplasm. Ronan Rousseau MD Chest X-Ray 05/18/17 0000 Signed Impressions: Service Date/Time: April 18:48 - CONCLUSION: 1. Right- sided [id number] appears well placed. 2. Persistent increased density in the right upper lung. Rajinder Chang MD Physical Exam HEENT: Pupils round and reactive to light; normocephalic; atraumatic CHEST: CTA CARDIAC: irr HR ABDOMEN: soft, nondistended, nontender; no hepatosplenomegaly; bowel sounds are present in all four quadrants. EXTREMITIES: No clubbing, cyanosis, or edema. SKIN: no rash; no jaundice. AIRPLANE COVERER: No focal deficits; alert and oriented times three. (Dionne Taveras) Assessment and Plan Plan Assessment: - Esophageal mass- PET- CT done Apr 07 demonstrates a mass in the upper third mid esophagus suspicious for malignancy. Also a hiatal hernia. Pt reports dysphagia for the past 3-4 months, states has had to cut her food into small pieces and still feels the food gets stuck. Has had to regurgitate food after meals. Associated odynophagia. Denies dysphagia with liquids. She is not sure but does not think she has ever had an EGD. Thinks she has been losing weight, unsure of how much. 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 This is probably esophageal cancer. Patient is very concerned when eating and nose fairly well what she can tolerate or not. Agree with plan of speech therapist evaluate and swallow and dietary needs. 05/21/17 feels meat not finely chopped enough. she says swallowing is less painful than previously was going to be d/c but developed AF w/ RVR, cardiology consult pending. PLAN: await cardiology consult change to soft diet Await biopsies Continue with current supportive care PPI Drink fluids with food Monitor labs Pt has been seen and examined by myself and Dr. Capps and this note is written on his behalf (Dionne Taveras) Physician Comments Patient seen and examined Agree with above Continue with current supportive care Monitor labs Await pathology (Jacob Capps MD) Dionne Taveras May 21, 2017 13:40 Jacob Capps MD May 21, 2017 14:14
--- NOTE | 2017-05-21 16:21 | HHI.PR ---
Subjective Remarks alert no sob up in bed AFIB , RVR this AM NOW IN NSR Objective Vital Signs Date Time Temp Pulse Resp B/P (MAP) Pulse Ox O2 Delivery O2 Flow Rate FiO2 05/21/17 15:26 140 113/84 05/21/17 15:21 97.9 128 18 113/84 (94) 95 05/21/17 12:00 126 05/21/17 11:11 98.3 145 18 136/87 (103) 95 05/21/17 11:00 149 05/21/17 10:00 104 05/21/17 09:00 96 05/21/17 08:19 97 Nasal Cannula 2.00 05/21/17 08:08 147/84 (105) 05/21/17 08:07 93 05/21/17 07:36 97.7 84 18 173/97 (122) 100 05/21/17 07:00 94 05/21/17 05:09 87 05/21/17 05:00 86 05/21/17 04:00 84 05/21/17 03:00 78 05/21/17 02:00 84 05/21/17 01:33 95 05/21/17 01:00 84 05/21/17 00:10 97 18 155/96 (115) 93 05/21/17 00:00 98 05/20/17 23:00 92 05/20/17 22:00 86 05/20/17 21:21 99 Nasal Cannula 2.00 05/20/17 21:00 78 05/20/17 20:22 82 05/20/17 20:05 98.3 83 20 140/94 (109) 96 05/20/17 20:00 82 05/20/17 18:16 80 05/20/17 17:00 78 I/O 05/20/17 05/20/17 05/20/17 05/21/17 05/21/17 05/21/17 07:00 15:00 23:00 07:00 15:00 23:00 Intake Total 420 ml 680 ml 1200 ml 480 ml Output Total 1200 ml 1000 ml Balance 420 ml 680 ml 0 ml -520 ml Intake Oral 1200 ml 480 ml IV Total 420 ml 680 ml Output Urine Total 1200 ml 1000 ml # Bowel Movements 1 0 Result Diagram: 4/1/18 0403 4/1/18 0403 Procedures --port placement, 05/18 --EGD with biopsy + EUS on 05/19 Objective Remarks GENERAL: SKIN: Warm and dry. HEAD: Atraumatic. Normocephalic. EYES: Pupils equal and round. No scleral icterus. No injection or drainage. ENT: No nasal bleeding or discharge. Mucous membranes pink and moist. NECK: Trachea midline. No JVD. CARDIOVASCULAR: Regular rate and rhythm. RESPIRATORY: No accessory muscle use. Clear to auscultation. Breath sounds equal bilaterally. GASTROINTESTINAL: Abdomen soft, non-tender, nondistended. Hepatic and splenic margins not palpable. MUSCULOSKELETAL: Extremities without clubbing, cyanosis, or edema. No obvious deformities. NEUROLOGICAL: Awake and alert. No obvious cranial nerve deficits. Motor grossly within normal limits. Five out of 5 muscle strength in the arms and legs. Normal speech. PSYCHIATRIC: Appropriate mood and affect; insight and judgment normal. Assessment and Plan Assessment and Plan impression AFIB RVR lung CA COPD ? OESOPHAGEAL CA ? PNA PLAN ANTIBIOTIC THERAPY BRONCHODILATOR THERAPY CHECK PATH Getachew Chilel MD May 21, 2017 16:21
[2017-05-21] MEDS: AMIODARONE INJ 450 MG in SODIUM CHLOR 0.9% (EXCEL) INJ 241 ML IV PRN (16:25)
[2017-05-21] MEDS: SODIUM CHLORIDE 0.9% FLUSH 10 ML FLUSH IVF PRN (19:39)
[2017-05-21] MEDS: VERAPAMIL HCL 5 MG/2 ML VIAL IV PUSH PRN ×2 (19:39→21:59)
[2017-05-21] MEDS: RESP: ALBUTEROL 2.5 MG/IPRATROPIUM 0.5 MG NEB (PRN) NEB (23:01)
[2017-05-22] VITALS (25 sets, daily range): BP systolic 112–163; BP diastolic 78–103; PULSE 68–122; RESP 18–20; TEMP 97.2–98.4; O2SAT 95–100
[2017-05-22] MEDS: VERAPAMIL HCL 5 MG/2 ML VIAL IV PUSH PRN (00:35)
[2017-05-22] MEDS: SODIUM CHLORIDE 0.9% FLUSH 10 ML FLUSH IVF PRN ×2 (00:43→06:51)
[2017-05-22] MEDS: AMIODARONE INJ 450 MG in SODIUM CHLOR 0.9% (EXCEL) INJ 241 ML IV PRN (03:06)
[2017-05-22] MEDS: AZTREONAM INJ 2,000 MG in SODIUM CHLORIDE 0.9% INJ 100 ML IV SCH (06:51)
--- NOTE | 2017-05-22 07:48 | PD.CARD.PN ---
Subjective Subjective Remarks PT without CV complaints Objective Medications Current Medications Medications (Trade) Dose Ordered Sig/Dusty Route Start Time Stop Time Status Last Admin (Cathflo Activase Inj) 2 mg UNSCH PRN IVF 05/18/17 08:45 (Heparin Central Flush) 500 units UNSCH IV FLUSH 05/18/17 08:45 (NS Flush) 5 ml UNSCH PRN IVF 05/18/17 08:45 05/22/17 06:51 (Heparin Central Flush) 250 units UNSCH PRN IV FLUSH 05/18/17 08:45 (Duoneb Neb) 1 ampule Q4HR NEB PRN NEB 05/18/17 11:45 05/21/17 23:01 (Pravachol) 20 mg DAILY PO 05/19/17 09:00 05/21/17 08:32 (Procardia Xl) 90 mg DAILY PO 05/19/17 09:00 05/21/17 08:31 (Cozaar) 100 mg DAILY PO 05/19/17 09:00 05/21/17 08:32 (Paxil) 40 mg DAILY PO 05/19/17 09:00 05/21/17 08:31 (Hydrodiuril) 25 mg DAILY PO 05/19/17 09:00 05/21/17 08:32 (Symbicort 160-4.5 Mcg Inh) 2 puff Q12HR INH 05/18/17 21:00 05/21/17 21:55 (Protonix) 40 mg DAILY PO 05/19/17 09:00 05/21/17 08:31 (Ditropan) 5 mg Q12HR PO 05/18/17 21:00 05/21/17 21:48 ([place] 7.5-325 Mg) 1 tab Q6H PRN PO 05/19/17 22:15 05/19/17 22:10 (Lovenox Inj) 40 mg Q24H SQ 05/20/17 12:00 05/21/17 11:30 (Zofran Inj) 4 mg Q6HR PRN IV PUSH 05/20/17 15:45 (Deltasone) 20 mg BID PO 05/21/17 09:00 05/21/17 21:48 (NS Flush) 2 ml UNSCH PRN IV FLUSH 05/21/17 11:00 05/21/17 19:40 Aztreonam 2000 mg/ Sodium Chloride 100 ml @ 200 mls/hr Q8H IV 05/21/17 14:00 05/22/17 06:51 Amiodarone HCl 450 mg/Sodium Chloride 250 ml @ 33.33 mls/ hr Q7H31M PRN IV 05/21/17 13:10 05/22/17 03:06 (Isoptin Inj) 5 mg Q1HR PRN IV PUSH 05/21/17 19:00 05/22/17 00:35 Vital Signs / I&O Vital Signs Date Time Temp Pulse Resp B/P (MAP) Pulse Ox O2 Delivery O2 Flow Rate FiO2 05/22/17 07:06 72 05/22/17 05:59 70 05/22/17 05:02 69 05/22/17 04:31 68 05/22/17 04:00 71 05/22/17 03:07 98.4 103 18 119/82 (94) 96 05/22/17 03:06 103 119/82 05/22/17 03:00 97 05/22/17 02:04 103 05/22/17 01:15 92 146/92 (110) 05/22/17 01:05 97 05/22/17 00:43 103 112/78 (89) 96 05/22/17 00:29 97.4 122 18 124/92 (103) 97 05/22/17 00:01 103 05/21/17 23:00 102 05/21/17 22:17 90 05/21/17 22:15 86 18 135/86 (102) 96 05/21/17 22:10 98 124/91 (102) 96 05/21/17 21:57 120 149/103 (118) 05/21/17 21:52 125 05/21/17 21:04 98 05/21/17 20:32 96 112/82 (92) 05/21/17 20:32 Nasal Cannula 2.00 05/21/17 20:03 89 05/21/17 19:56 98 05/21/17 19:54 97 111/81 (91) 05/21/17 19:38 126 05/21/17 19:28 98.7 124 18 131/85 (100) 96 05/21/17 19:04 136 05/21/17 18:00 124 05/21/17 17:00 120 05/21/17 16:25 110 118/71 05/21/17 16:15 114 118/71 (87) 05/21/17 16:00 123 05/21/17 16:00 113 05/21/17 15:45 119 119/83 (95) 05/21/17 15:26 140 113/84 05/21/17 15:23 119 113/84 (94) 05/21/17 15:21 97.9 128 18 113/84 (94) 95 05/21/17 14:00 112 05/21/17 13:00 122 05/21/17 12:00 126 05/21/17 11:11 98.3 145 18 136/87 (103) 95 05/21/17 11:00 149 05/21/17 10:00 104 05/21/17 09:00 96 05/21/17 08:19 97 Nasal Cannula 2.00 05/21/17 08:08 147/84 (105) 05/21/17 08:07 93 I/O 05/21/17 05/21/17 05/21/17 05/22/17 05/22/17 05/22/17 07:00 15:00 23:00 07:00 15:00 23:00 Intake Total 480 ml 960 ml 720 ml Output Total 1000 ml 300 ml 700 ml Balance -520 ml 660 ml 20 ml Intake Oral 480 ml 960 ml 720 ml Output Urine Total 1000 ml 300 ml 700 ml # Voids 4 # Bowel Movements 0 Physical Exam GENERAL: Well developed, well nourished. No acute distress. HEENT: Jugular venous pressure is normal. CHEST: Lungs decreased & clear to auscultation bilaterally. Unlabored respiratory effort. CARDIAC: Regular rate and rhythm without S3, S4, or murmur. ABDOMEN: Soft, nontender, no hepatosplenomegaly. Bowel sounds present. EXTREMITIES: No clubbing, cyanosis, or edema. Laboratory Laboratory Tests Test 05/22/17 07:00 Assessment and Plan Problem List: (1) PAF (paroxysmal atrial fibrillation) ICD Codes: I48.0 - Paroxysmal atrial fibrillation Plan: PAF again over night, now in NSR -change to PO amio and change CCB to AV jojo radha Anticoagulation- higher CHADS VASC but anemic and fell within the last year so exterminator anticoagulation is controversial at best (2) Anemia ICD Codes: D64.9 - Anemia, unspecified (3) Lung cancer ICD Codes: C34.90 - Malignant neoplasm of unspecified part of unspecified bronchus or lung (4) Renal insufficiency ICD Codes: N28.9 - Disorder of kidney and ureter, unspecified Status: Acute (5) Esophageal mass ICD Codes: K22.9 - Disease of esophagus, unspecified Status: Acute Problem Qualifiers (1) Lung cancer: Brenda Meng MD May 22, 2017 07:48
[2017-05-22 07:49] LABS: AUTOMATED NEUTROPHIL # 5.7 TH/MM3 (1.8-7.7); BASOPHIL % 0.2 % (0.0-2.0); HEMATOCRIT 30.9 % (35.0-46.0); HEMOGLOBIN 10.1 GM/DL (11.6-15.3); LYMPH % 7.9 % (9.0-44.0); LYMPHOCYTE # 0.5 TH/MM3 (1.0-4.8); MEAN CELL VOLUME 78.7 FL (80.0-100.0); MEAN CORPUSCULAR HEMOGLOBIN 25.8 PG (27.0-34.0); MEAN CORPUSCULAR HGB CONC 32.8 % (32.0-36.0); MEAN PLATELET VOLUME 8.6 FL (7.0-11.0); MONO % 4.7 % (0.0-8.0); MONOCYTE # 0.3 TH/MM3 (0-0.9); NEUT % 87.2 % (16.0-70.0); PLATELET COUNT 164 TH/MM3 (150-450); RED BLOOD COUNT 3.93 MIL/MM3 (4.00-5.30); RED CELL DISTRIBUTION WIDTH 18.2 % (11.6-17.2); WHITE BLOOD COUNT 6.5 TH/MM3 (4.0-11.0)
[2017-05-22] MEDS ORDERED: DILTIAZEM HCL 30 MG TAB PO PRN (08:00)
[2017-05-22 08:10] LABS: BICARBONATE 28.6 MEQ/L (21.0-32.0); CALCIUM 9.2 MG/DL (8.5-10.1); CREATININE 0.97 MG/DL (0.50-1.00)
[2017-05-22] MEDS: PANTOPRAZOLE SOD 40 MG DELAYED RELEASE TAB PO SCH (08:29)
[2017-05-22] MEDS: LOSARTAN 50 MG TAB PO SCH (08:29)
[2017-05-22] MEDS: predniSONE 20 MG TAB PO SCH ×2 (08:29→21:08)
[2017-05-22] MEDS: OXYBUTYNIN CHLORIDE 5 MG TAB PO SCH ×2 (08:29→21:08)
[2017-05-22] MEDS: PARoxetine HCL 20 MG TAB PO SCH (08:29)
[2017-05-22] MEDS: PRAVASTATIN SOD 20 MG TAB PO SCH (08:30)
[2017-05-22] MEDS: BUDESONIDE-FORMOTEROL 160/4.5 MCG INHALER INH SCH ×2 (08:30→21:08)
[2017-05-22] MEDS: HYDROCHLOROTHIAZIDE 25 MG TAB PO SCH (08:30)
[2017-05-22] MEDS ORDERED: DILTIAZEM-CD 240 MG CAP ER PO SCH (09:00)
--- NOTE | 2017-05-22 09:11 | EKG ---
Date Performed: 05/21/2017 Time Performed: 10:51:50 PTAGE: 77 years EKG: Atrial fibrillation with uncontrolled ventricular response with PVC(s) Left ventricular hyp ertrophy Extensive ST-T changes Abnormal ECG Compared to PREVIOUS TRACING , SR no longer present DOCTOR: Asia Pete Interpretating Date/Time 05/22/2017 09:10:43
[2017-05-22] MEDS: AMIODARONE 200 MG TAB PO SCH (09:58)
[2017-05-22] MEDS: DILTIAZEM HCL 60 MG TAB PO SCH ×2 (10:28→17:02)
[2017-05-22] MEDS: ENOXAPARIN SODIUM 40 MG/0.4 ML SYRINGE SQ SCH (10:30)
--- NOTE | 2017-05-22 10:53 | PD.ONC.PN ---
Subjective Subjective Remarks Afebrile Patient reports she is anxious to go home Complains of itching around her Prxizj-i-Tzar No other acute complaints Objective Data Date Time Temp Pulse Resp B/P (MAP) Pulse Ox O2 Delivery O2 Flow Rate FiO2 05/22/17 08:44 97.2 77 20 163/103 (123) 98 05/22/17 07:06 72 05/22/17 05:59 70 05/22/17 05:02 69 05/22/17 04:31 68 05/22/17 04:00 71 05/22/17 03:07 98.4 103 18 119/82 (94) 96 05/22/17 03:06 103 119/82 05/22/17 03:00 97 05/22/17 02:04 103 05/22/17 01:15 92 146/92 (110) 05/22/17 01:05 97 05/22/17 00:43 103 112/78 (89) 96 05/22/17 00:29 97.4 122 18 124/92 (103) 97 05/22/17 00:01 103 05/21/17 23:00 102 05/21/17 22:17 90 05/21/17 22:15 86 18 135/86 (102) 96 05/21/17 22:10 98 124/91 (102) 96 05/21/17 21:57 120 149/103 (118) 05/21/17 21:52 125 05/21/17 21:04 98 05/21/17 20:32 96 112/82 (92) 05/21/17 20:32 Nasal Cannula 2.00 05/21/17 20:03 89 05/21/17 19:56 98 05/21/17 19:54 97 111/81 (91) 05/21/17 19:38 126 05/21/17 19:28 98.7 124 18 131/85 (100) 96 05/21/17 19:04 136 05/21/17 18:00 124 05/21/17 17:00 120 05/21/17 16:25 110 118/71 05/21/17 16:15 114 118/71 (87) 05/21/17 16:00 123 05/21/17 16:00 113 05/21/17 15:45 119 119/83 (95) 05/21/17 15:26 140 113/84 05/21/17 15:23 119 113/84 (94) 05/21/17 15:21 97.9 128 18 113/84 (94) 95 05/21/17 14:00 112 05/21/17 13:00 122 05/21/17 12:00 126 05/21/17 11:11 98.3 145 18 136/87 (103) 95 05/21/17 11:00 149 05/22/17 05/22/17 05/22/17 07:00 15:00 23:00 Intake Total 970 ml Output Total 700 ml Balance 270 ml Result Diagram: 05/22/17 0700 05/22/17 0700 Laboratory Results Laboratory Tests Test 05/22/17 07:00 White Blood Count 6.5 TH/MM3 Red Blood Count 3.93 MIL/MM3 Hemoglobin 10.1 GM/DL Hematocrit 30.9 % Mean Corpuscular Volume 78.7 FL Mean Corpuscular Hemoglobin 25.8 PG Mean Corpuscular Hemoglobin Concent 32.8 % Red Cell Distribution Width 18.2 % Platelet Count 164 TH/MM3 Mean Platelet Volume 8.6 FL Neutrophils (%) (Auto) 87.2 % Lymphocytes (%) (Auto) 7.9 % Monocytes (%) (Auto) 4.7 % Eosinophils (%) (Auto) 0.0 % Basophils (%) (Auto) 0.2 % Neutrophils # (Auto) 5.7 TH/MM3 Lymphocytes # (Auto) 0.5 TH/MM3 Monocytes # (Auto) 0.3 TH/MM3 Eosinophils # (Auto) 0.0 TH/MM3 Basophils # (Auto) 0.0 TH/MM3 CBC Comment DIFF FINAL Differential Comment Blood Urea Nitrogen 15 MG/DL Creatinine 0.97 MG/DL Random Glucose 128 MG/DL Calcium Level 9.2 MG/DL Sodium Level 140 MEQ/L Potassium Level 3.7 MEQ/L Chloride Level 105 MEQ/L Carbon Dioxide Level 28.6 MEQ/L Anion Gap 6 MEQ/L Estimat Glomerular Filtration Rate 56 ML/MIN Administered Medications Medications (Trade) Dose Ordered Sig/Dusty Route PRN Reason Start Time Stop Time Status Last Admin Dose Admin Sodium Chloride (NS Flush) 5 ml UNSCH PRN IVF SEE PROTOCOL 05/18/17 08:45 05/22/17 06:51 Albuterol/ Ipratropium (Duoneb Neb) 1 ampule Q4HR NEB PRN NEB shortness of breath 05/18/17 11:45 05/21/17 23:01 Pravastatin Sodium (Pravachol) 20 mg DAILY PO 05/19/17 09:00 05/22/17 08:30 Losartan Potassium (Cozaar) 100 mg DAILY PO 05/19/17 09:00 05/22/17 08:29 Paroxetine HCl (Paxil) 40 mg DAILY PO 05/19/17 09:00 05/22/17 08:29 Hydrochlorothiazide (Hydrodiuril) 25 mg DAILY PO 05/19/17 09:00 05/22/17 08:30 Budesonide/ Formoterol Fumarate (Symbicort 160-4.5 Mcg Inh) 2 puff Q12HR INH 05/18/17 21:00 05/22/17 08:30 Pantoprazole Sodium (Protonix) 40 mg DAILY PO 05/19/17 09:00 05/22/17 08:29 Oxybutynin Chloride (Ditropan) 5 mg Q12HR PO 05/18/17 21:00 05/22/17 08:29 Acetaminophen/ Hydrocodone Bitart ([place] 7.5-325 Mg) 1 tab Q6H PRN PO PAIN SCALE 1-10 05/19/17 22:15 05/19/17 22:10 Enoxaparin Sodium (Lovenox Inj) 40 mg Q24H SQ 05/20/17 12:00 05/22/17 10:30 Prednisone (Deltasone) 20 mg BID PO 05/21/17 09:00 05/22/17 08:29 Sodium Chloride (NS Flush) 2 ml UNSCH PRN IV FLUSH FLUSH AFTER USING IV ACCESS 05/21/17 11:00 05/21/17 19:40 Aztreonam 2000 mg/ Sodium Chloride 100 ml @ 200 mls/hr Q8H IV 05/21/17 14:00 05/22/17 06:51 Verapamil HCl (Isoptin Inj) 5 mg Q1HR PRN IV PUSH HR > 105 05/21/17 19:00 05/22/17 00:35 Amiodarone HCl (Cordarone) 200 mg DAILY PO 05/22/17 09:00 05/22/17 09:58 Diltiazem HCl (Cardizem) 60 mg Q6HR PO 05/22/17 11:00 05/22/17 10:28 Objective Remarks GENERAL: Elderly female, upright in bed in no obvious distress. On 2L O2 via NC SKIN: Warm and dry. HEAD: Normocephalic. EYES: No injection or drainage. NECK: Supple, trachea midline. CARDIOVASCULAR: Regular rate and rhythm RESPIRATORY: Lungs overall diminished with scattered rhonchi GASTROINTESTINAL: Abdomen soft, non-tender, nondistended. EXTREMITIES: No cyanosis. No edema NEUROLOGICAL: No obvious focal deficit. Awake, alert, and oriented x3. Assessment/Plan Problem List: (1) Esophageal mass ICD Codes: K22.9 - Disease of esophagus, unspecified Status: Acute Plan: ++PET avid lesion in esophagus --unclear if this is related to lung lesion. --s/p EGD with biopsy on 05/19 --s/p port placement. (2) Lung cancer ICD Codes: C34.90 - Malignant neoplasm of unspecified part of unspecified bronchus or lung Plan: -- lung lesion pathology showed a non-small cell lung cancer, adenocarcinoma histology. -- The question remains as to whether or not the esophageal cancer is related to the lung lesions versus 2 primaries. --s/p XRT simulation, awaiting start of radiation. (3) COPD with exacerbation ICD Codes: J44.1 - Chronic obstructive pulmonary disease with (acute) exacerbation Status: Chronic Plan: home medications resumed, + PRN duonebs --pulmonology consulted --goal to keep saturation>90% (4) HTN (hypertension) ICD Codes: I10 - Essential (primary) hypertension Plan: --home medications resumed. Assessment 77y/o female with lung cancer, now with dysphagia and concern for esophageal cancer. h/o hypertension, hiatal hernia, anxiety, COPD Plan 1. Await esophageal mass pathology from EGD 2. Cardiology has switched IV amiodarone to p.o. Cardizem and Cordarone today. 3. Patient clear for discharge from oncology standpoint once cleared by cardiology and pulmonology Attending Statement The exam, history, and the medical decision-making described in the above note were completed with the assistance of the mid-level provider. I reviewed and agree with the findings presented. I attest that I had a [id number] encounter with the patient on the same day, and personally performed and documented my assessment and findings in the medical record.SOB improved. No CP. Rate better controlled. Continue supportive care. Can be d/c once clear by cardiology and pulmonology. Problem Qualifiers (1) Lung cancer: Larissa Pierce May 22, 2017 10:53 Selwyn Hills MD May 22, 2017 17:17
[2017-05-22] MEDS ORDERED: IOHEXOL 350 MG/ML 50 ML BTL (for Cath Lab) IVCONTRAST ONE (11:56)
--- NOTE | 2017-05-22 12:02 | HHI.PR ---
Subjective Remarks Patient reports having a wet cough but she denies shortness of breath or chest pain. Heart rate elevated overnight but better this morning. Objective Vitals Vital Signs Date Time Temp Pulse Resp B/P (MAP) Pulse Ox O2 Delivery O2 Flow Rate FiO2 05/22/17 08:44 97.2 77 20 163/103 (123) 98 05/22/17 07:06 72 05/22/17 05:59 70 05/22/17 05:02 69 05/22/17 04:31 68 05/22/17 04:00 71 05/22/17 03:07 98.4 103 18 119/82 (94) 96 05/22/17 03:06 103 119/82 05/22/17 03:00 97 05/22/17 02:04 103 05/22/17 01:15 92 146/92 (110) 05/22/17 01:05 97 05/22/17 00:43 103 112/78 (89) 96 05/22/17 00:29 97.4 122 18 124/92 (103) 97 05/22/17 00:01 103 05/21/17 23:00 102 05/21/17 22:17 90 05/21/17 22:15 86 18 135/86 (102) 96 05/21/17 22:10 98 124/91 (102) 96 05/21/17 21:57 120 149/103 (118) 05/21/17 21:52 125 05/21/17 21:04 98 05/21/17 20:32 96 112/82 (92) 05/21/17 20:32 Nasal Cannula 2.00 05/21/17 20:03 89 05/21/17 19:56 98 05/21/17 19:54 97 111/81 (91) 05/21/17 19:38 126 05/21/17 19:28 98.7 124 18 131/85 (100) 96 05/21/17 19:04 136 05/21/17 18:00 124 05/21/17 17:00 120 05/21/17 16:25 110 118/71 05/21/17 16:15 114 118/71 (87) 05/21/17 16:00 123 05/21/17 16:00 113 05/21/17 15:45 119 119/83 (95) 05/21/17 15:26 140 113/84 05/21/17 15:23 119 113/84 (94) 05/21/17 15:21 97.9 128 18 113/84 (94) 95 05/21/17 14:00 112 05/21/17 13:00 122 I/O 05/21/17 05/21/17 05/21/17 05/22/17 05/22/17 05/22/17 07:00 15:00 23:00 07:00 15:00 23:00 Intake Total 480 ml 1060 ml 970 ml Output Total 1000 ml 300 ml 700 ml Balance -520 ml 760 ml 270 ml Intake Oral 480 ml 960 ml 720 ml IV Total 100 ml 250 ml Output Urine Total 1000 ml 300 ml 700 ml # Voids 4 # Bowel Movements 0 Result Diagram: 05/22/17 0700 05/22/17 0700 Objective Remarks GENERAL: Elderly female in no acute distress. CARDIOVASCULAR: Normal rate and irregular rhythm without noticeable murmurs. RESPIRATORY: Good respiratory efforts. Breath sounds mostly clear but she does have some faint rhonchi diffusely, more noticeable in the right upper lung self. GASTROINTESTINAL: Abdomen soft, non-tender, non-distended. Normal active bowel sounds MUSCULOSKELETAL: Extremities without cyanosis, or edema. NEURO: Alert & Oriented x4 to person, place, time, situation. Moves all ext x4 PSYCH: Appropriate mood and affect. A/P Problem List: (1) Esophageal mass ICD Code: K22.9 - Disease of esophagus, unspecified Status: Acute (2) COPD with exacerbation ICD Code: J44.1 - Chronic obstructive pulmonary disease with (acute) exacerbation Status: Chronic (3) Lung cancer ICD Code: C34.90 - Malignant neoplasm of unspecified part of unspecified bronchus or lung (4) HTN (hypertension) ICD Code: I10 - Essential (primary) hypertension Assessment and Plan 77-year-old female with history of hypertension and COPD with recently diagnosed non-small cell lung carcinoma in March, admitted for dysphagia secondary to esophageal lesion Atrial fibrillation: -Cardiology following. Status post amiodarone drip. Patient is currently on oral amiodarone and Cardizem. Rate seems better controlled. - Reported history of falls and anemia. Risk may outweigh benefit of anticoagulation. Severe COPD/possible early pneumonia: imaging report reviewed -Pulmonology following Dr. Getachew, duo nebs as needed, on Symbicort. -Continue prednisone - Recommend transitioning to oral Levaquin for 7 days for possible pneumonia. non-small cell lung cancer-status post port placement care of surgery, chemotherapy per oncology as outpatient. Dysphagia secondary to esophageal lesion, possible esophageal cancer-status post EGD, EUS with biopsy care of gastroenterology. Pathology pending. Patient seen by speech therapy and recommended mechanical soft, thin liquids. Hypertension-continue hydrochlorothiazide, losartan, nifedipine DVT prophylaxis: Lovenox for DVT prophylaxis Discharge Planning [facility] for DC in AM from Hospitalist standpoint if rate still controlled and no further issues. Problem Qualifiers (1) Lung cancer: Lina Cavazos MD May 22, 2017 12:02
--- NOTE | 2017-05-22 13:18 | RADRPT ---
EXAM DATE/TIME: 05/22/2017 11:34 [facility] COMPARISON: No previous studies available for comparison. INDICATIONS : Patient with a history of lung cancer needs port evaluation. MEDICAL HISTORY : Esophageal mass Lung cancer COPD HTN Hyperlipidemia Anxiety Depression CAD SURGICAL HISTORY : Hysterectomy ENCOUNTER: Initial ACUITY: 3 days PAIN SCORE: 3/10 LOCATION: Left chest FLUORO TIME: 0.3 minutes IMAGE SERIES: 1 CONTRAST: 5 cc Omnipaque (iohexol) 350 ACCESS: Right [id number] PROCEDURE : 1. Access of [id number]. 2. Port patency injection. The risks, benefits and alternatives to the procedure were explained and verbal and written consent w as obtained. The patient was placed supine. The port was prepped in sterile fashion. Full sterile t echnique was used, including cap, mask, sterile gloves and gown, and a large sterile sheet. Hand hyg iene and 2% chlorhexidine prep was utilized per protocol for cutaneous antisepsis with appropriate dr y time for site. The previously placed port was accessed and positive contrast was injected for evaluation. Injection demonstrates intraluminal position and easy aspiration. CONCLUSION: Intact [id number] Carlos Moreno MD on May 22, 2017 at 13:16 Board Certified Radiologist. This report was verified electronically.
--- NOTE | 2017-05-22 14:24 | HHI.GIFU ---
Subjective Remarks sitting in chair Acute on chronic constipation No BM in 2 days, used to take something daily at home Mild abdominal left lower quadrant cramping earlier but has now subside Afebrile (Edyta Taylor) Objective Vitals I&O Vital Signs Date Time Temp Pulse Resp B/P (MAP) Pulse Ox O2 Delivery O2 Flow Rate FiO2 05/22/17 08:44 97.2 77 20 163/103 (123) 98 05/22/17 07:06 72 05/22/17 05:59 70 05/22/17 05:02 69 05/22/17 04:31 68 05/22/17 04:00 71 05/22/17 03:07 98.4 103 18 119/82 (94) 96 05/22/17 03:06 103 119/82 05/22/17 03:00 97 05/22/17 02:04 103 05/22/17 01:15 92 146/92 (110) 05/22/17 01:05 97 05/22/17 00:43 103 112/78 (89) 96 05/22/17 00:29 97.4 122 18 124/92 (103) 97 05/22/17 00:01 103 05/21/17 23:00 102 05/21/17 22:17 90 05/21/17 22:15 86 18 135/86 (102) 96 05/21/17 22:10 98 124/91 (102) 96 05/21/17 21:57 120 149/103 (118) 05/21/17 21:52 125 05/21/17 21:04 98 05/21/17 20:32 96 112/82 (92) 05/21/17 20:32 Nasal Cannula 2.00 05/21/17 20:03 89 05/21/17 19:56 98 05/21/17 19:54 97 111/81 (91) 05/21/17 19:38 126 05/21/17 19:28 98.7 124 18 131/85 (100) 96 05/21/17 19:04 136 05/21/17 18:00 124 05/21/17 17:00 120 05/21/17 16:25 110 118/71 05/21/17 16:15 114 118/71 (87) 05/21/17 16:00 123 05/21/17 16:00 113 05/21/17 15:45 119 119/83 (95) 05/21/17 15:26 140 113/84 05/21/17 15:23 119 113/84 (94) 05/21/17 15:21 97.9 128 18 113/84 (94) 95 I/O 05/21/17 05/21/17 05/21/17 05/22/17 05/22/17 05/22/17 07:00 15:00 23:00 07:00 15:00 23:00 Intake Total 480 ml 1060 ml 970 ml Output Total 1000 ml 300 ml 700 ml Balance -520 ml 760 ml 270 ml Intake Oral 480 ml 960 ml 720 ml IV Total 100 ml 250 ml Output Urine Total 1000 ml 300 ml 700 ml # Voids 4 # Bowel Movements 0 Laboratory Laboratory Tests Test 05/22/17 07:00 White Blood Count 6.5 Red Blood Count 3.93 Hemoglobin 10.1 Hematocrit 30.9 Mean Corpuscular Volume 78.7 Mean Corpuscular Hemoglobin 25.8 Mean Corpuscular Hemoglobin Concent 32.8 Red Cell Distribution Width 18.2 Platelet Count 164 Mean Platelet Volume 8.6 Neutrophils (%) (Auto) 87.2 Lymphocytes (%) (Auto) 7.9 Monocytes (%) (Auto) 4.7 Eosinophils (%) (Auto) 0.0 Basophils (%) (Auto) 0.2 Neutrophils # (Auto) 5.7 Lymphocytes # (Auto) 0.5 Monocytes # (Auto) 0.3 Eosinophils # (Auto) 0.0 Basophils # (Auto) 0.0 CBC Comment DIFF FINAL Differential Comment Blood Urea Nitrogen 15 Creatinine 0.97 Random Glucose 128 Calcium Level 9.2 Sodium Level 140 Potassium Level 3.7 Chloride Level 105 Carbon Dioxide Level 28.6 Anion Gap 6 Estimat Glomerular Filtration Rate 56 Imaging Last Impressions Venous Access Device Injection 05/22/17 0000 Signed Impressions: Service Date/Time: Monday, May 22, 2017 11:34 - CONCLUSION: Intact [id number] Carlos Moreno MD CT Angiography 05/20/17 0000 Signed Impressions: Service Date/Time: Saturday, May 20, 2017 13:11 - CONCLUSION: 1. Development of basilar airspace disease and small effusions since May 15 CT from [facility]. Also slight increase in consolidation in the right upper lobe. 2. Abnormal mural thickening of the esophagus just above large hiatal hernia. Reason for recent radiation therapy planning is unclear. Current findings are concerning for esophageal neoplasm. Ronan Rousseau MD Chest X-Ray 05/18/17 0000 Signed Impressions: Service Date/Time: April 18:48 - CONCLUSION: 1. Right- sided [id number] appears well placed. 2. Persistent increased density in the right upper lung. Rajinder Chang MD Physical Exam HEENT: Pupils round and reactive to light; normocephalic; atraumatic skin color pale pink, mild speech impediment but understandable CHEST: CTA no audible rhonchi, wheezing CARDIAC: irr HR controlled ABDOMEN: Large, soft, nondistended, nontender to light palpation; no hepatosplenomegaly; bowel sounds are present in all four quadrants. EXTREMITIES: No clubbing, cyanosis, or edema. SKIN: no rash; no jaundice. FIBER DESIGNER: No focal deficits; alert and oriented times three. (Edyta Taylor) Assessment and Plan Plan Assessment: - Esophageal mass- PET- CT done Apr 07 demonstrates a mass in the upper third mid esophagus suspicious for malignancy. Also a hiatal hernia. Pt reports dysphagia for the past 3-4 months, states has had to cut her food into small pieces and still feels the food gets stuck. Has had to regurgitate food after meals. Associated odynophagia. Denies dysphagia with liquids. She is not sure but does not think she has ever had an EGD. Thinks she has been losing weight, unsure of how much. 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 This is probably esophageal cancer. Patient is very concerned when eating and nose fairly well what she can tolerate or not. Agree with plan of speech therapist evaluate and swallow and dietary needs. 05/21/17 feels meat not finely chopped enough. she says swallowing is less painful than previously was going to be d/c but developed AF w/ RVR, cardiology consult pending. 05/22/2017. Patient has history of constipation with some mild left lower quadrant cramping this a.m. but resolved now, no BM in 2 days and usually takes medications daily. Working with meats being pured, but states her lunch was way too salty. Discussion on supplemental ensure, and making milkshakes to maintain her calories. Hemoglobin now 10.1, states she is using applesauce for her meds. Anemia without obvious bleeding stable hemoglobin 10.1 PLAN: Added MiraLAX daily change to soft diet meats pured, soft foods and thin liquids are okay Await biopsies Continue with current supportive care PPI Drink fluids with food, encouraged increasing fluid amounts Monitor labs Pt has been seen and examined by myself and Dr. Padilla, and this note is written on his behalf (Edyta Taylor) Physician Comments Seen and examined with [facility], await esophageal biopsy results. Miralax/Mom for constipation. Mag citrate tomorrow if no response. (Doron Padilla MD) Edyta Taylor May 22, 2017 14:24 Doron Padilla MD May 22, 2017 17:04
[2017-05-22] MEDS: LEVOFLOXACIN 750 MG TAB PO SCH (14:30)
[2017-05-22] MEDS: POLYETHYLENE GLYCOL 17 GM PKG PO SCH (15:00)
--- NOTE | 2017-05-22 17:07 | HHI.PR ---
Subjective Remarks alert no sob ambulating AFIB , RVR this AM NOW IN NSR Objective Vital Signs Date Time Temp Pulse Resp B/P (MAP) Pulse Ox O2 Delivery O2 Flow Rate FiO2 05/22/17 15:17 75 05/22/17 11:30 97.4 74 20 148/96 (113) 98 05/22/17 08:44 97.2 77 20 163/103 (123) 98 05/22/17 08:00 76 05/22/17 07:06 72 05/22/17 05:59 70 05/22/17 05:02 69 05/22/17 04:31 68 05/22/17 04:00 71 05/22/17 03:07 98.4 103 18 119/82 (94) 96 05/22/17 03:06 103 119/82 05/22/17 03:00 97 05/22/17 02:04 103 05/22/17 01:15 92 146/92 (110) 05/22/17 01:05 97 05/22/17 00:43 103 112/78 (89) 96 05/22/17 00:29 97.4 122 18 124/92 (103) 97 05/22/17 00:01 103 05/21/17 23:00 102 05/21/17 22:17 90 05/21/17 22:15 86 18 135/86 (102) 96 05/21/17 22:10 98 124/91 (102) 96 05/21/17 21:57 120 149/103 (118) 05/21/17 21:52 125 05/21/17 21:04 98 05/21/17 20:32 96 112/82 (92) 05/21/17 20:32 Nasal Cannula 2.00 05/21/17 20:03 89 05/21/17 19:56 98 05/21/17 19:54 97 111/81 (91) 05/21/17 19:38 126 05/21/17 19:28 98.7 124 18 131/85 (100) 96 05/21/17 19:04 136 05/21/17 18:00 124 I/O 05/21/17 05/21/17 05/21/17 05/22/17 05/22/17 05/22/17 07:00 15:00 23:00 07:00 15:00 23:00 Intake Total 480 ml 1060 ml 970 ml 100 ml Output Total 1000 ml 300 ml 700 ml Balance -520 ml 760 ml 270 ml 100 ml Intake Oral 480 ml 960 ml 720 ml IV Total 100 ml 250 ml 100 ml Output Urine Total 1000 ml 300 ml 700 ml # Voids 4 # Bowel Movements 0 Result Diagram: 05/22/17 0700 05/22/17 0700 Procedures --port placement, 05/18 --EGD with biopsy + EUS on 05/19 Objective Remarks GENERAL: SKIN: Warm and dry. HEAD: Atraumatic. Normocephalic. EYES: Pupils equal and round. No scleral icterus. No injection or drainage. ENT: No nasal bleeding or discharge. Mucous membranes pink and moist. NECK: Trachea midline. No JVD. CARDIOVASCULAR: Regular rate and rhythm. RESPIRATORY: No accessory muscle use. Clear to auscultation. Breath sounds equal bilaterally. GASTROINTESTINAL: Abdomen soft, non-tender, nondistended. Hepatic and splenic margins not palpable. MUSCULOSKELETAL: Extremities without clubbing, cyanosis, or edema. No obvious deformities. NEUROLOGICAL: Awake and alert. No obvious cranial nerve deficits. Motor grossly within normal limits. Five out of 5 muscle strength in the arms and legs. Normal speech. PSYCHIATRIC: Appropriate mood and affect; insight and judgment normal. Assessment and Plan Assessment and Plan impression AFIB controlled lung CA COPD ? OESOPHAGEAL CA ? PNA PLAN ANTIBIOTIC THERAPY BRONCHODILATOR THERAPY CHECK PATH Getachew Chilel MD May 22, 2017 17:07
--- NOTE | 2017-05-22 19:20 | ECHRPT ---
Indication: AFIB/AFLUTTER CONCLUSIONS The left ventricular systolic function is normal with an estimated ejection fraction in the range of 60-65%. Normal left ventricular size. Mild concentric left ventricular hypertrophy. The left atrial size is mildly dilated. Mitral annular calcification is present. Mild mitral valve regurgitation. Aortic valve sclerosis is present. There is mild tricuspid valve regurgitation. The estimated pulmonary arterial pressure is 40 mmHg. BP: / HR: 73 Rhythm: Sinus MEASUREMENTS (Male / Female) Normal Values Technical Quality: 2D ECHO LV Diastolic Diameter PLAX 4.3 cm 4.2 - 5.9 / 3.9 - 5.3 cm LV Systolic Diameter PLAX 3.0 cm IVS Diastolic Thickness 1.1 cm 0.6 - 1.0 / 0.6 - 0.9 cm LVPW Diastolic Thickness 1.1 cm 0.6 - 1.0 / 0.6 - 0.9 cm LV Relative Wall Thickness 0.5 RV Internal Dim ED PLAX 3.0 cm LVOT Diameter 2.1 cm LA Systolic Diameter LX 4.0 cm 3.0 - 4.0 / 2.7 - 3.8 cm LA Volume Index 52.5 cm/m 16 - 28 cm/m M-MODE Aortic Root Diameter MM 3.4 cm LA Systolic Diameter MM 4.0 cm LA Ao Ratio MM 1.2 AV Cusp Separation MM 1.3 cm DOPPLER AV Peak Velocity 214.0 cm/s AV Peak Gradient 18.3 mmHg AV Mean Gradient 11.0 mmHg AV Velocity Time Integral 45.5 cm LVOT Peak Velocity 129.0 cm/s LVOT Peak Gradient 6.7 mmHg LVOT Velocity Time Integral 27.1 cm LVOT Cardiac Index 3437.5 cm/minm AV Area Cont Eq vti 2.1 cm AV Area Cont Eq pk 2.1 cm MV Area PHT 2.7 cm Mitral E Point Velocity 114.0 cm/s Mitral A Point Velocity 135.0 cm/s Mitral E to A Ratio 0.8 LV E' Lateral Velocity 7.0 cm/s Mitral E to LV E' Lateral Ratio 16.2 LV E' Septal Velocity 6.7 cm/s Mitral E to LV E' Septal Ratio 16.9 TR Peak Velocity 272.0 cm/s TR Peak Gradient 29.6 mmHg Right Atrial Pressure 10.0 mmHg Pulmonary Artery Systolic Pressu 39.6 mmHg Right Ventricular Systolic Press 39.6 mmHg FINDINGS LEFT VENTRICLE The left ventricular systolic function is normal with an estimated ejection fraction in the range of 60-65%. Normal left ventricular size. Mild concentric left ventricular hypertrophy. RIGHT VENTRICLE Normal right ventricular size and systolic function. LEFT ATRIUM The left atrial size is mildly dilated. RIGHT ATRIUM The right atrial size is normal. ATRIAL SEPTUM Normal atrial septal thickness without atrial level shunting by limited color doppler interrogation. AORTA The aortic root and proximal ascending aorta are normal in size on limited imaging. MITRAL VALVE Mitral annular calcification is present. Mild mitral valve regurgitation. AORTIC VALVE Aortic valve sclerosis is present. TRICUSPID VALVE Structurally normal tricuspid valve. There is mild tricuspid valve regurgitation. The estimated pulmonary arterial pressure is 39.6 mmHg. PULMONARY VALVE No pulmonary valve regurgitation or stenosis. VESSELS The inferior vena cava is normal in size. PERICARDIUM No pericardial effusion. Asia Pete MD, FACC (Electronically Signed) Final Date:22 May 2017 19:19
[2017-05-23] VITALS (12 sets, daily range): BP systolic 115–128; BP diastolic 77–88; PULSE 70–87; RESP 18–20; TEMP 97.6–97.9; O2SAT 92–98
[2017-05-23] MEDS: RESP: ALBUTEROL 2.5 MG/IPRATROPIUM 0.5 MG NEB (PRN) NEB (00:41)
[2017-05-23] MEDS: DILTIAZEM HCL 60 MG TAB PO SCH ×3 (01:09→13:32)
[2017-05-23 05:51] LABS: AUTOMATED NEUTROPHIL # 4.2 TH/MM3 (1.8-7.7); BASOPHIL % 0.1 % (0.0-2.0); HEMATOCRIT 29.7 % (35.0-46.0); HEMOGLOBIN 9.8 GM/DL (11.6-15.3); LYMPH % 10.1 % (9.0-44.0); LYMPHOCYTE # 0.5 TH/MM3 (1.0-4.8); MEAN CELL VOLUME 78.2 FL (80.0-100.0); MEAN CORPUSCULAR HEMOGLOBIN 25.9 PG (27.0-34.0); MEAN CORPUSCULAR HGB CONC 33.1 % (32.0-36.0); MEAN PLATELET VOLUME 8.7 FL (7.0-11.0); MONOCYTE # 0.2 TH/MM3 (0-0.9); NEUT % 85.8 % (16.0-70.0); PLATELET COUNT 178 TH/MM3 (150-450); RED BLOOD COUNT 3.79 MIL/MM3 (4.00-5.30); RED CELL DISTRIBUTION WIDTH 19.1 % (11.6-17.2); WHITE BLOOD COUNT 4.9 TH/MM3 (4.0-11.0)
[2017-05-23 06:19] LABS: BICARBONATE 30.1 MEQ/L (21.0-32.0); CALCIUM 9.2 MG/DL (8.5-10.1); CREATININE 1.01 MG/DL (0.50-1.00)
--- NOTE | 2017-05-23 08:13 | PD.CARD.PN ---
Subjective Subjective Remarks PT without CV complaints Objective Medications Current Medications Medications (Trade) Dose Ordered Sig/Dusty Route Start Time Stop Time Status Last Admin (Cathflo Activase Inj) 2 mg UNSCH PRN IVF 05/18/17 08:45 (Heparin Central Flush) 500 units UNSCH IV FLUSH 05/18/17 08:45 (NS Flush) 5 ml UNSCH PRN IVF 05/18/17 08:45 05/22/17 06:51 (Heparin Central Flush) 250 units UNSCH PRN IV FLUSH 05/18/17 08:45 (Duoneb Neb) 1 ampule Q4HR NEB PRN NEB 05/18/17 11:45 05/23/17 00:41 (Pravachol) 20 mg DAILY PO 05/19/17 09:00 05/22/17 08:30 (Cozaar) 100 mg DAILY PO 05/19/17 09:00 05/22/17 08:29 (Paxil) 40 mg DAILY PO 05/19/17 09:00 05/22/17 08:29 (Hydrodiuril) 25 mg DAILY PO 05/19/17 09:00 05/22/17 08:30 (Symbicort 160-4.5 Mcg Inh) 2 puff Q12HR INH 05/18/17 21:00 05/22/17 21:08 (Protonix) 40 mg DAILY PO 05/19/17 09:00 05/22/17 08:29 (Ditropan) 5 mg Q12HR PO 05/18/17 21:00 05/22/17 21:08 ([place] 7.5-325 Mg) 1 tab Q6H PRN PO 05/19/17 22:15 05/19/17 22:10 (Lovenox Inj) 40 mg Q24H SQ 05/20/17 12:00 05/22/17 10:30 (Zofran Inj) 4 mg Q6HR PRN IV PUSH 05/20/17 15:45 (Deltasone) 20 mg BID PO 05/21/17 09:00 05/22/17 21:08 (NS Flush) 2 ml UNSCH PRN IV FLUSH 05/21/17 11:00 05/21/17 19:40 (Isoptin Inj) 5 mg Q1HR PRN IV PUSH 4/1/18 19:00 05/22/17 00:35 (Cordarone) 200 mg DAILY PO 05/22/17 09:00 05/22/17 09:58 (Cardizem) 30 mg Q6HR PRN PO 05/22/17 08:00 (Cardizem) 60 mg Q6HR PO 05/22/17 11:00 05/23/17 05:59 (Levaquin) 750 mg DAILY PO 05/22/17 14:30 05/22/17 14:30 (Miralax) 17 gm DAILY PO 05/22/17 15:00 05/22/17 15:00 Vital Signs / I&O Vital Signs Date Time Temp Pulse Resp B/P (MAP) Pulse Ox O2 Delivery O2 Flow Rate FiO2 05/23/17 06:06 76 05/23/17 05:00 70 05/23/17 04:25 97.9 75 18 116/79 (91) 95 05/23/17 04:06 73 05/23/17 03:05 77 05/23/17 02:04 85 05/23/17 01:04 97.9 87 20 128/88 (101) 98 05/23/17 01:00 81 05/23/17 00:41 98 Nasal Cannula 3.00 05/23/17 00:05 79 05/22/17 23:05 73 05/22/17 22:03 72 05/22/17 21:02 72 05/22/17 20:00 70 05/22/17 19:11 98.3 75 20 128/83 (98) 100 05/22/17 19:00 78 05/22/17 17:56 97.6 87 19 137/87 (104) 95 05/22/17 17:19 78 05/22/17 15:17 75 05/22/17 11:30 97.4 74 20 148/96 (113) 98 05/22/17 08:44 97.2 77 20 163/103 (123) 98 I/O 05/22/17 05/22/17 05/22/17 05/23/17 05/23/17 05/23/17 07:00 15:00 23:00 07:00 15:00 23:00 Intake Total 970 ml 100 ml 630 ml 240 ml Output Total 700 ml 500 ml Balance 270 ml 100 ml 130 ml 240 ml Intake Oral 720 ml 630 ml 240 ml IV Total 250 ml 100 ml Output Urine Total 700 ml 500 ml # Voids 1 2 # Bowel Movements 0 1 Physical Exam GENERAL: Well developed, well nourished. No acute distress. HEENT: Jugular venous pressure is normal. CHEST: Lungs decreased, rhonchi on left. Unlabored respiratory effort. CARDIAC: irregular rate and rhythm without S3, S4, or murmur. ABDOMEN: Soft, nontender, no hepatosplenomegaly. Bowel sounds present. EXTREMITIES: No clubbing, cyanosis, or edema. Laboratory Laboratory Tests Test 05/23/17 04:30 White Blood Count 4.9 TH/MM3 Red Blood Count 3.79 MIL/MM3 Hemoglobin 9.8 GM/DL Hematocrit 29.7 % Mean Corpuscular Volume 78.2 FL Mean Corpuscular Hemoglobin 25.9 PG Mean Corpuscular Hemoglobin Concent 33.1 % Red Cell Distribution Width 19.1 % Platelet Count 178 TH/MM3 Mean Platelet Volume 8.7 FL Neutrophils (%) (Auto) 85.8 % Lymphocytes (%) (Auto) 10.1 % Monocytes (%) (Auto) 4.0 % Eosinophils (%) (Auto) 0.0 % Basophils (%) (Auto) 0.1 % Neutrophils # (Auto) 4.2 TH/MM3 Lymphocytes # (Auto) 0.5 TH/MM3 Monocytes # (Auto) 0.2 TH/MM3 Eosinophils # (Auto) 0.0 TH/MM3 Basophils # (Auto) 0.0 TH/MM3 CBC Comment DIFF FINAL Differential Comment Blood Urea Nitrogen 21 MG/DL Creatinine 1.01 MG/DL Random Glucose 121 MG/DL Calcium Level 9.2 MG/DL Sodium Level 140 MEQ/L Potassium Level 3.6 MEQ/L Chloride Level 102 MEQ/L Carbon Dioxide Level 30.1 MEQ/L Anion Gap 8 MEQ/L Estimat Glomerular Filtration Rate 53 ML/MIN Assessment and Plan Problem List: (1) PAF (paroxysmal atrial fibrillation) ICD Codes: I48.0 - Paroxysmal atrial fibrillation Plan: PAF - rate controlled on present meds Anticoagulation- higher CHADS VASC but anemic and fell within the last year so assisted anticoagulation is controversial at best; no change -ECHO with normal EF (2) HTN (hypertension) ICD Codes: I10 - Essential (primary) hypertension Plan: good on present meds, - stop HCTZ for room with treatment/chemo/XRT (3) Anemia ICD Codes: D64.9 - Anemia, unspecified (4) Lung cancer ICD Codes: C34.90 - Malignant neoplasm of unspecified part of unspecified bronchus or lung (5) Renal insufficiency ICD Codes: N28.9 - Disorder of kidney and ureter, unspecified Status: Acute (6) Esophageal mass ICD Codes: K22.9 - Disease of esophagus, unspecified Status: Acute Assessment and Plan Ok for d/c from CV perspective Problem Qualifiers (1) Lung cancer: Brenda Meng MD May 23, 2017 08:13
--- NOTE | 2017-05-23 09:13 | HHI.PR ---
Subjective Remarks alert no sob ambulating AFIB , RVR this AM NOW IN NSR Objective Vital Signs Date Time Temp Pulse Resp B/P (MAP) Pulse Ox O2 Delivery O2 Flow Rate FiO2 05/23/17 06:06 76 05/23/17 05:00 70 05/23/17 04:25 97.9 75 18 116/79 (91) 95 05/23/17 04:06 73 05/23/17 03:05 77 05/23/17 02:04 85 05/23/17 01:04 97.9 87 20 128/88 (101) 98 05/23/17 01:00 81 05/23/17 00:41 98 Nasal Cannula 3.00 05/23/17 00:05 79 05/22/17 23:05 73 05/22/17 22:03 72 05/22/17 21:02 72 05/22/17 20:00 70 05/22/17 19:11 98.3 75 20 128/83 (98) 100 05/22/17 19:00 78 05/22/17 17:56 97.6 87 19 137/87 (104) 95 05/22/17 17:19 78 05/22/17 15:17 75 05/22/17 11:30 97.4 74 20 148/96 (113) 98 I/O 05/22/17 05/22/17 05/22/17 05/23/17 05/23/17 05/23/17 07:00 15:00 23:00 07:00 15:00 23:00 Intake Total 970 ml 100 ml 630 ml 240 ml Output Total 700 ml 500 ml Balance 270 ml 100 ml 130 ml 240 ml Intake Oral 720 ml 630 ml 240 ml IV Total 250 ml 100 ml Output Urine Total 700 ml 500 ml # Voids 1 2 # Bowel Movements 0 1 Result Diagram: 05/23/170 05/23/17 043 Procedures --port placement, 05/18 --EGD with biopsy + EUS on 05/19 Objective Remarks GENERAL: SKIN: Warm and dry. HEAD: Atraumatic. Normocephalic. EYES: Pupils equal and round. No scleral icterus. No injection or drainage. ENT: No nasal bleeding or discharge. Mucous membranes pink and moist. NECK: Trachea midline. No JVD. CARDIOVASCULAR: Regular rate and rhythm. RESPIRATORY: No accessory muscle use. Clear to auscultation. Breath sounds equal bilaterally. GASTROINTESTINAL: Abdomen soft, non-tender, nondistended. Hepatic and splenic margins not palpable. MUSCULOSKELETAL: Extremities without clubbing, cyanosis, or edema. No obvious deformities. NEUROLOGICAL: Awake and alert. No obvious cranial nerve deficits. Motor grossly within normal limits. Five out of 5 muscle strength in the arms and legs. Normal speech. PSYCHIATRIC: Appropriate mood and affect; insight and judgment normal. Assessment and Plan Assessment and Plan impression AFIB controlled lung CA COPD ? OESOPHAGEAL CA ? PNA PLAN ANTIBIOTIC THERAPY BRONCHODILATOR THERAPY CHECK PATH INCREASE ACTIVITY Getachew Chilel MD May 23, 2017 09:13
[2017-05-23] MEDS ORDERED: DILT60TA33 PO (09:48)
[2017-05-23] MEDS ORDERED: AMIO200T PO (09:48)
[2017-05-23] MEDS: BUDESONIDE-FORMOTEROL 160/4.5 MCG INHALER INH SCH (09:59)
[2017-05-23] MEDS: OXYBUTYNIN CHLORIDE 5 MG TAB PO SCH (10:01)
[2017-05-23] MEDS: LEVOFLOXACIN 750 MG TAB PO SCH (10:01)
[2017-05-23] MEDS: PANTOPRAZOLE SOD 40 MG DELAYED RELEASE TAB PO SCH (10:01)
[2017-05-23] MEDS: PARoxetine HCL 20 MG TAB PO SCH (10:01)
[2017-05-23] MEDS: LOSARTAN 50 MG TAB PO SCH (10:01)
[2017-05-23] MEDS: PRAVASTATIN SOD 20 MG TAB PO SCH (10:01)
[2017-05-23] MEDS: predniSONE 20 MG TAB PO SCH (10:02)
[2017-05-23] MEDS: AMIODARONE 200 MG TAB PO SCH (10:02)
[2017-05-23] MEDS: POLYETHYLENE GLYCOL 17 GM PKG PO SCH (10:02)
--- NOTE | 2017-05-23 10:06 | PD.ONC.PN ---
Subjective Subjective Remarks Afebrile overnight. patient resting in bed in nad. No complaints. wants to go home. heart rate controlled and patient has been cleared for discharge by cardiology. Objective Data Date Time Temp Pulse Resp B/P (MAP) Pulse Ox O2 Delivery O2 Flow Rate FiO2 05/23/17 09:41 92 21 05/23/17 08:00 97.6 71 18 115/77 (90) 98 05/23/17 06:06 76 05/23/17 05:00 70 05/23/17 04:25 97.9 75 18 116/79 (91) 95 05/23/17 04:06 73 05/23/17 03:05 77 05/23/17 02:04 85 05/23/17 01:04 97.9 87 20 128/88 (101) 98 05/23/17 01:00 81 05/23/17 00:41 98 Nasal Cannula 3.00 05/23/17 00:05 79 05/22/17 23:05 73 05/22/17 22:03 72 05/22/17 21:02 72 05/22/17 20:00 70 05/22/17 19:11 98.3 75 20 128/83 (98) 100 05/22/17 19:00 78 05/22/17 17:56 97.6 87 19 137/87 (104) 95 05/22/17 17:19 78 05/22/17 15:17 75 05/22/17 11:30 97.4 74 20 148/96 (113) 98 05/23/17 05/23/17 05/23/17 07:00 15:00 23:00 Intake Total 240 ml Balance 240 ml Result Diagram: 05/23/17 0430 05/23/17 0430 Laboratory Results Laboratory Tests Test 05/23/17 04:30 White Blood Count 4.9 TH/MM3 Red Blood Count 3.79 MIL/MM3 Hemoglobin 9.8 GM/DL Hematocrit 29.7 % Mean Corpuscular Volume 78.2 FL Mean Corpuscular Hemoglobin 25.9 PG Mean Corpuscular Hemoglobin Concent 33.1 % Red Cell Distribution Width 19.1 % Platelet Count 178 TH/MM3 Mean Platelet Volume 8.7 FL Neutrophils (%) (Auto) 85.8 % Lymphocytes (%) (Auto) 10.1 % Monocytes (%) (Auto) 4.0 % Eosinophils (%) (Auto) 0.0 % Basophils (%) (Auto) 0.1 % Neutrophils # (Auto) 4.2 TH/MM3 Lymphocytes # (Auto) 0.5 TH/MM3 Monocytes # (Auto) 0.2 TH/MM3 Eosinophils # (Auto) 0.0 TH/MM3 Basophils # (Auto) 0.0 TH/MM3 CBC Comment DIFF FINAL Differential Comment Blood Urea Nitrogen 21 MG/DL Creatinine 1.01 MG/DL Random Glucose 121 MG/DL Calcium Level 9.2 MG/DL Sodium Level 140 MEQ/L Potassium Level 3.6 MEQ/L Chloride Level 102 MEQ/L Carbon Dioxide Level 30.1 MEQ/L Anion Gap 8 MEQ/L Estimat Glomerular Filtration Rate 53 ML/MIN Administered Medications Medications (Trade) Dose Ordered Sig/Dusty Route PRN Reason Start Time Stop Time Status Last Admin Dose Admin Sodium Chloride (NS Flush) 5 ml UNSCH PRN IVF SEE PROTOCOL 05/18/17 08:45 05/22/17 06:51 Albuterol/ Ipratropium (Duoneb Neb) 1 ampule Q4HR NEB PRN NEB shortness of breath 05/18/17 11:45 05/23/17 00:41 Pravastatin Sodium (Pravachol) 20 mg DAILY PO 05/19/17 09:00 05/22/17 08:30 Losartan Potassium (Cozaar) 100 mg DAILY PO 05/19/17 09:00 05/22/17 08:29 Paroxetine HCl (Paxil) 40 mg DAILY PO 05/19/17 09:00 05/22/17 08:29 Budesonide/ Formoterol Fumarate (Symbicort 160-4.5 Mcg Inh) 2 puff Q12HR INH 05/18/17 21:00 05/22/17 21:08 Pantoprazole Sodium (Protonix) 40 mg DAILY PO 05/19/17 09:00 05/22/17 08:29 Oxybutynin Chloride (Ditropan) 5 mg Q12HR PO 05/18/17 21:00 05/22/17 21:08 Acetaminophen/ Hydrocodone Bitart ([place] 7.5-325 Mg) 1 tab Q6H PRN PO PAIN SCALE 1-10 05/19/17 22:15 05/19/17 22:10 Enoxaparin Sodium (Lovenox Inj) 40 mg Q24H SQ 05/20/17 12:00 05/22/17 10:30 Prednisone (Deltasone) 20 mg BID PO 05/21/17 09:00 05/22/17 21:08 Sodium Chloride (NS Flush) 2 ml UNSCH PRN IV FLUSH FLUSH AFTER USING IV ACCESS 05/21/17 11:00 05/21/17 19:40 Verapamil HCl (Isoptin Inj) 5 mg Q1HR PRN IV PUSH HR > 105 05/21/17 19:00 05/22/17 00:35 Amiodarone HCl (Cordarone) 200 mg DAILY PO 05/22/17 09:00 05/22/17 09:58 Diltiazem HCl (Cardizem) 60 mg Q6HR PO 05/22/17 11:00 05/23/17 05:59 Levofloxacin (Levaquin) 750 mg DAILY PO 05/22/17 14:30 05/22/17 14:30 Polyethylene Glycol (Miralax) 17 gm DAILY PO 05/22/17 15:00 05/22/17 15:00 Objective Remarks GENERAL: Elderly female, sitting up in bed in [facility]. SKIN: Warm and dry. HEAD: Normocephalic. EYES: No injection or drainage. NECK: Supple, trachea midline. CARDIOVASCULAR: Regular rate and rhythm RESPIRATORY: Breath sounds equal bilaterally. No accessory muscle use. GASTROINTESTINAL: Abdomen soft, non-tender, nondistended. EXTREMITIES: No cyanosis, or edema. MUSCULOSKELETAL: Adequate muscle tone. NEUROLOGICAL: awake and alert. normal speech. moving all extremities Assessment/Plan Problem List: (1) Esophageal mass ICD Codes: K22.9 - Disease of esophagus, unspecified Status: Acute Plan: ++PET avid lesion in esophagus --unclear if this is related to lung lesion. --s/p EGD with biopsy on 05/19 --s/p port placement. (2) Lung cancer ICD Codes: C34.90 - Malignant neoplasm of unspecified part of unspecified bronchus or lung Plan: -- lung lesion pathology showed a non-small cell lung cancer, adenocarcinoma histology. -- The question remains as to whether or not the esophageal cancer is related to the lung lesions versus 2 primaries. --s/p XRT simulation, awaiting start of radiation. (3) COPD with exacerbation ICD Codes: J44.1 - Chronic obstructive pulmonary disease with (acute) exacerbation Status: Chronic Plan: home medications resumed, + PRN duonebs --pulmonology consulted --goal to keep saturation>90% (4) HTN (hypertension) ICD Codes: I10 - Essential (primary) hypertension Plan: --home medications resumed. (5) PAF (paroxysmal atrial fibrillation) ICD Codes: I48.0 - Paroxysmal atrial fibrillation Plan: --on Amiodarone and Cardizem. --patient's office electrician Dr. Meng following. Assessment 77y/o female with lung cancer, now with dysphagia and concern for esophageal cancer. h/o hypertension, hiatal hernia, anxiety, COPD Plan 1. discharge today on Amiodarone and Cardizem per cardiology. Stop HCTZ per cardiology. 2. stop Zocor due to severe interaction with Amiodarone and Cardizem--I discussed this with the patient at length and explained she would need to follow up with Dr. Garsia her PCP to start on an alternative agent for her cholesterol. she stated understanding/agreement with plan. 3. follow up in the clinic with CHLOE Gage this Monday Attending Statement The exam, history, and the medical decision-making described in the above note were completed with the assistance of the mid-level provider. I reviewed and agree with the findings presented. I attest that I had a [id number] encounter with the patient on the same day, and personally performed and documented my assessment and findings in the medical record. Denies CP/SOB. A.fib rate controlled. Pt can be d/c and followup oncology clinic. Problem Qualifiers (1) Lung cancer: Jenny Negron May 23, 2017 10:06 Selwyn Hills MD May 23, 2017 10:55
[2017-05-23] MEDS ORDERED: LEVA750T9 PO (10:58)
--- NOTE | 2017-05-23 11:00 | HHI.PR ---
Subjective Remarks Patient reports she is feeling better. Eager to go home. Breathing better. Objective Vitals Vital Signs Date Time Temp Pulse Resp B/P (MAP) Pulse Ox O2 Delivery O2 Flow Rate FiO2 05/23/17 09:41 92 21 05/23/17 08:00 97.6 71 18 115/77 (90) 98 05/23/17 06:06 76 05/23/17 05:00 70 05/23/17 04:25 97.9 75 18 116/79 (91) 95 05/23/17 04:06 73 05/23/17 03:05 77 05/23/17 02:04 85 05/23/17 01:04 97.9 87 20 128/88 (101) 98 05/23/17 01:00 81 05/23/17 00:41 98 Nasal Cannula 3.00 05/23/17 00:05 79 05/22/17 23:05 73 05/22/17 22:03 72 05/22/17 21:02 72 05/22/17 20:00 70 05/22/17 19:11 98.3 75 20 128/83 (98) 100 05/22/17 19:00 78 05/22/17 17:56 97.6 87 19 137/87 (104) 95 05/22/17 17:19 78 05/22/17 15:17 75 05/22/17 11:30 97.4 74 20 148/96 (113) 98 I/O 05/22/17 05/22/17 05/22/17 05/23/17 05/23/17 05/23/17 07:00 15:00 23:00 07:00 15:00 23:00 Intake Total 970 ml 100 ml 630 ml 240 ml Output Total 700 ml 500 ml Balance 270 ml 100 ml 130 ml 240 ml Intake Oral 720 ml 630 ml 240 ml IV Total 250 ml 100 ml Output Urine Total 700 ml 500 ml # Voids 1 2 # Bowel Movements 0 1 Result Diagram: 05/23/1742905/23/17429 Objective Remarks GENERAL: Elderly female in no acute distress. CARDIOVASCULAR: Normal rate and irregular rhythm without noticeable murmurs. RESPIRATORY: Good respiratory efforts. Breath sounds mostly clear but she does have some faint rhonchi diffusely, more noticeable in the right upper lung self. GASTROINTESTINAL: Abdomen soft, non-tender, non-distended. Normal active bowel sounds MUSCULOSKELETAL: Extremities without cyanosis, or edema. NEURO: Alert & Oriented x4 to person, place, time, situation. Moves all ext x4 PSYCH: Appropriate mood and affect. A/P Problem List: (1) Esophageal mass ICD Code: K22.9 - Disease of esophagus, unspecified Status: Acute (2) COPD with exacerbation ICD Code: J44.1 - Chronic obstructive pulmonary disease with (acute) exacerbation Status: Chronic (3) Lung cancer ICD Code: C34.90 - Malignant neoplasm of unspecified part of unspecified bronchus or lung (4) HTN (hypertension) ICD Code: I10 - Essential (primary) hypertension Assessment and Plan 77-year-old female with history of hypertension and COPD with recently diagnosed non-small cell lung carcinoma in March, admitted for dysphagia secondary to esophageal lesion Atrial fibrillation: -Cardiology following. Status post amiodarone drip. Patient is currently on oral amiodarone and Cardizem. Rate seems better controlled. - Reported history of falls and anemia. Risk may outweigh benefit of anticoagulation. Severe COPD/possible early pneumonia: imaging report reviewed -Pulmonology following graciela Dunbar nebs as needed, on Symbicort. -Continue prednisone - Recommend Oral Levaquin for 7 days for possible pneumonia. Tele reviewed. No evidence on QT prolongation. non-small cell lung cancer-status post port placement care of surgery, chemotherapy per oncology as outpatient. Dysphagia secondary to esophageal lesion, possible esophageal cancer-status post EGD, EUS with biopsy care of gastroenterology. Pathology pending. Patient seen by speech therapy and recommended mechanical soft, thin liquids. Hypertension-continue hydrochlorothiazide, losartan, nifedipine DVT prophylaxis: Lovenox for DVT prophylaxis Discharge Planning Cleared for DC Problem Qualifiers (1) Lung cancer: Lina Cavazos MD May 23, 2017 11:00
--- NOTE | 2017-05-23 13:02 | HHI.GIFU ---
Subjective Remarks Pt tolerating soft food OK No GI complaints at this time Planned for discharge today (Polina Whelan) Objective Vitals I&O Vital Signs Date Time Temp Pulse Resp B/P (MAP) Pulse Ox O2 Delivery O2 Flow Rate FiO2 05/23/17 09:41 92 21 05/23/17 08:00 97.6 71 18 115/77 (90) 98 05/23/17 06:06 76 05/23/17 05:00 70 05/23/17 04:25 97.9 75 18 116/79 (91) 95 05/23/17 04:06 73 05/23/17 03:05 77 05/23/17 02:04 85 05/23/17 01:04 97.9 87 20 128/88 (101) 98 05/23/17 01:00 81 05/23/17 00:41 98 Nasal Cannula 3.00 05/23/17 00:05 79 05/22/17 23:05 73 05/22/17 22:03 72 05/22/17 21:02 72 05/22/17 20:00 70 05/22/17 19:11 98.3 75 20 128/83 (98) 100 05/22/17 19:00 78 05/22/17 17:56 97.6 87 19 137/87 (104) 95 05/22/17 17:19 78 05/22/17 15:17 75 I/O 05/22/17 05/22/17 05/22/17 05/23/17 05/23/17 05/23/17 07:00 15:00 23:00 07:00 15:00 23:00 Intake Total 970 ml 100 ml 630 ml 600 ml Output Total 700 ml 500 ml 425 ml Balance 270 ml 100 ml 130 ml 175 ml Intake Oral 720 ml 630 ml 600 ml IV Total 250 ml 100 ml Output Urine Total 700 ml 500 ml 425 ml # Voids 1 2 # Bowel Movements 0 1 1 Laboratory Laboratory Tests Test 05/23/17 04:30 White Blood Count 4.9 Red Blood Count 3.79 Hemoglobin 9.8 Hematocrit 29.7 Mean Corpuscular Volume 78.2 Mean Corpuscular Hemoglobin 25.9 Mean Corpuscular Hemoglobin Concent 33.1 Red Cell Distribution Width 19.1 Platelet Count 178 Mean Platelet Volume 8.7 Neutrophils (%) (Auto) 85.8 Lymphocytes (%) (Auto) 10.1 Monocytes (%) (Auto) 4.0 Eosinophils (%) (Auto) 0.0 Basophils (%) (Auto) 0.1 Neutrophils # (Auto) 4.2 Lymphocytes # (Auto) 0.5 Monocytes # (Auto) 0.2 Eosinophils # (Auto) 0.0 Basophils # (Auto) 0.0 CBC Comment DIFF FINAL Differential Comment Blood Urea Nitrogen 21 Creatinine 1.01 Random Glucose 121 Calcium Level 9.2 Sodium Level 140 Potassium Level 3.6 Chloride Level 102 Carbon Dioxide Level 30.1 Anion Gap 8 Estimat Glomerular Filtration Rate 53 Imaging Last Impressions Venous Access Device Injection 05/22/17 0000 Signed Impressions: Service Date/Time: Monday, May 22, 2017 11:34 - CONCLUSION: Intact [id number] Carlos Moreno MD CT Angiography 05/20/17 0000 Signed Impressions: Service Date/Time: Saturday, May 20, 2017 13:11 - CONCLUSION: 1. Development of basilar airspace disease and small effusions since May 15 CT from [facility]. Also slight increase in consolidation in the right upper lobe. 2. Abnormal mural thickening of the esophagus just above large hiatal hernia. Reason for recent radiation therapy planning is unclear. Current findings are concerning for esophageal neoplasm. Ronan Rousseau MD Chest X-Ray 05/18/17 0000 Signed Impressions: Service Date/Time: April 18:48 - CONCLUSION: 1. Right- sided [id number] appears well placed. 2. Persistent increased density in the right upper lung. Rajinder Chang MD Physical Exam HEENT: Normocephalic CHEST: Even/unlabored CARDIAC: Irregular ABDOMEN: Soft, nontender, bowel sounds active EXTREMITIES: No clubbing, cyanosis, or edema. SKIN: No rash; no jaundice. TATTOO AND BODY ARTIST: No focal deficits; alert and oriented times three. (Polina Whelan) Assessment and Plan Plan Assessment: - Esophageal mass- PET- CT done Apr 07 demonstrates a mass in the upper third mid esophagus suspicious for malignancy. Also a hiatal hernia. Pt reports dysphagia for the past 3-4 months, states has had to cut her food into small pieces and still feels the food gets stuck. Has had to regurgitate food after meals. Associated odynophagia. Denies dysphagia with liquids. She is not sure but does not think she has ever had an EGD. Thinks she has been losing weight, unsure of how much. 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 This is probably esophageal cancer. (05/23) Pt with no GI complaints at this time, she is planned for DC today. Biopsy still pending. PLAN: Diet per [employer] Esophageal biopsy pending Have pt follow up with GI after DC Pt has been seen and examined by myself and Dr. Padilla, and this note is written on his behalf (Polina Whelan) Physician Comments Seen and examined with CHLOE, esophageal biopsy still pending. DC home with gi fu please. Thank you (Doron Padilla MD) Polina Whelan May 23, 2017 13:02 Doron Padilla MD May 23, 2017 14:34
[2017-05-23] MEDS: ENOXAPARIN SODIUM 40 MG/0.4 ML SYRINGE SQ SCH (13:37)
== END 2017-05-23 16:33 | disposition home health service (06) | DRG 374 ==
LOC: HCIS 07:41 → HCIN 16:55 → OBSVTOIN 05-20 10:31
PROVIDERS: ADMIT Internal Medicine Hematology & Oncology; ATTEND Internal Medicine Hematology & Oncology
PROC: 0DB38ZX Excision of Lower Esophagus, Via Natural or Artificial Opening Endoscopic, Diagnostic (ICD-10-PCS; 2017-05-19)
PROC: BD41ZZZ Ultrasonography of Esophagus (ICD-10-PCS; 2017-05-19)
PROC: 02HV33Z Insertion of Infusion Device into Superior Vena Cava, Percutaneous Approach (ICD-10-PCS; 2017-05-19)
PROC: B518ZZA Fluoroscopy of Superior Vena Cava, Guidance (ICD-10-PCS; 2017-05-19)
PROC: 0JH63WZ Insertion of Totally Implantable Vascular Access Device into Chest Subcutaneous Tissue and Fascia, Percutaneous Approach (ICD-10-PCS; principal; 2017-05-19 16:10)
DX: C15.5 Malignant neoplasm of lower third of esophagus (principal); J18.9 Pneumonia, unspecified organism; N17.9 Acute kidney failure, unspecified; I82.291 Chronic embolism and thrombosis of other thoracic veins; C34.11 Malignant neoplasm of upper lobe, right bronchus or lung; D63.0 Anemia in neoplastic disease; I48.0 Paroxysmal atrial fibrillation; J44.0 Chronic obstructive pulmonary disease with (acute) lower respiratory infection; J44.1 Chronic obstructive pulmonary disease with (acute) exacerbation; R13.10 Dysphagia, unspecified; I10 Essential (primary) hypertension; E78.5 Hyperlipidemia, unspecified; K44.9 Diaphragmatic hernia without obstruction or gangrene; I25.10 Atherosclerotic heart disease of native coronary artery without angina pectoris; R32 Unspecified urinary incontinence; E87.6 Hypokalemia; R63.4 Abnormal weight loss; K59.09 Other constipation; F41.9 Anxiety disorder, unspecified; Z87.891 Personal history of nicotine dependence; Z88.0 Allergy status to penicillin
CPT/HCPCS: 36598; 43242; 71045; 71275; 76000; 76937; 80048; 80053; 83735; 85025; 85610; 88305; 93005; 93306; 94618; 94640; 94664; 96361; 96365; 96366; 96375; 96376; C1788; G0378; G8996-GN; G8997-GN; G8998-GN; J0282; J0690; J1642; J1644; J1650; J2270; J2405; J2920; J3370; J3480; J7030; J7042; J7050; J7512; Q9967